=== PATIENT | female | born 2005 | race Caucasian/White ===

== ENCOUNTER 2023-02-21 16:30 | Emergency (ER) | payer BC, SELFPAY ==
[2023-02-21 16:30] VITALS: BP 138/80; PULSE 82; RESP 16; TEMP 36.7; O2SAT 98; BMI 34.9
--- NOTE | 2023-02-21 16:45 | EDS_ITS ---
HPI History of Present Illness Chief Complaint: Back Informant: patient Narrative Narrative: 17-year-old female states that she was bent over folding a weighted blanket. When she stood up she had pain in her low back. She describes it as nonradiating. No leg symptoms no bowel or bladder symptoms. States it feels like a spasm. She went to urgent care but they were closed so she came to emergency. 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 When asked further what that means is that she because of her physical job she wants to make sure she is checking her back anymore. She states that last week she fell down some icy stairs but did not have any low back pain. She states that she does not want any work restrictions and does not want time off of work. PFSH PFSH Allergy/AdvReac Type Severity Reaction Status Date / Time No Known Allergies Allergy Verified 02/21/23 16:32 Social History Smoking Status: Never smoker ROS ROS ED Constitutional Constitutional ED: Denies chills or weight loss Eyes Eyes: Denies change in vision or diplopia ENT ENT ED: Denies ear pain, rhinorrhea or sore throat Cardiovascular Cardiovascular: Denies chest pain, orthopnea, palpitations or racing heartbeat Respiratory/Chest Respiratory/Chest: Denies cough, dyspnea or orthopnea Gastrointestinal Gastrointestinal: Denies abdominal pain, diarrhea, nausea or vomiting Genitourinary Genitourinary ED: Denies dysuria, hematuria or urinary frequency Musculoskeletal Musculoskeletal: Reports back pain and other Details: Chronic left knee pain (and PT for) ; Denies arthralgias or myalgias Integumentary Denies abscess or rash Neurologic Neurologic: Denies headache(s) or weakness Psychiatric Psychiatric: Denies anxiety, depression, suicidal ideation or suicidal thoughts Endocrine Endocrinology: Denies polydipsia, polyphagia or polyuria Allergic/Immunologic Allergic/Immunologic ED: Denies mouth swelling, tongue swelling or urticaria EXAM Physical Exam Const Vital Signs: 02/21/23 16:30 Temperature 98.1 F Temperature Source Temporal Pulse Rate 82 Respiratory Rate 16 Blood Pressure 138/80 H Blood Pressure Mean 99 Pulse Ox 98 Oxygen Delivery Method Room Air Positive well nourished, well developed and obese General Appearance ED: well developed Nutritional Appearance: obese HEENT Reports normocephalic, head/scalp atraumatic and moist mucous membranes Eyes PERRL and EOMs intact bilaterally Neck no lymphadenopathy, supple and no JVD Resp normal respiratory effort and clear to auscultation bilaterally Cardio regular rate, regular rhythm and no murmurs GI normal to inspection, nondistended, normoactive bowel sounds and non-tender Palpation: soft Back/Spine no CVA tenderness and normal to inspection Back/Spine Narrative: Patient reports tenderness to palpation over the lower lumbar paraspinal musculature. I do not appreciate any step-offs. No tissue texture changes to suggest underlying infection. She has full range of motion albeit painful. Normal patellar and Achilles deep tendon reflexes. Normal sensation. Extremity normal to inspection General Extremety ED: Negative for edema General Extremity: Negative for edema Neuro oriented x3 and CN's II-XII intact bilaterally Sensorium / Orientation: alert Motor Exam: strength 5/5 throughout Deep Tendon Reflexes: Rt Patellar (L4): 2+, Lt Patellar (L4): 2+, Rt Ankle (S1): 2+ and Lt Ankle (S1): 2+ Deep Tendon Reflexes Back: Rt Patellar (L4): 2+, Lt Patellar (L4): 2+, Rt Ankle (S1): 2+ and Lt Ankle (S1): 2+ Psych mental status grossly normal Mood & Affect: Negative for depressed or tearful Skin no rashes or lesions noted and no wounds MDM MDM MDM Narrative Medical decision making narrative: I think this is most likely muscle spasm/myofascial strain. I do not think x- rays are indicated. The fall last week that resulted in no low back pain I think is unrelated to today and is unlikely to find a fracture. It does not sound based on her history that there is a radicular component. I would recommend conservative treatment with anti-inflammatories heat and stretching. She does not wear show work note or work restrictions. She was advised that doing heavy lifting may aggravate it further or delay healing. Discharge Plan Triage Chief Complaint: Back ED Provider: Kaleb Garcia Dx/Rx/DC Orders Clinical Impression: Low back pain, Acute lumbosacral myofascial strain Instructions: ED Back Spasm, No Trauma Primary Care Provider: Kathleen Mora Referrals: Kathleen Mora MD [Primary Care Provider] - 1 Week if not improving Disposition Disposition: Home, Self Care
--- OUTSIDE RECORDS SUMMARY | 2023-02-21 16:53 | XMS RPT_ITS | CCD ---
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 Name Role Phone Nyal Washington DO Primary Care Provider Unavailable Primary Care Provider UnavailARABELLA Hernández Attending Unavailable NYLA WASHINGTON Attending Unavailable REFERRED, SELF Referring Unavailable NYLA WASHINGTON Primary Care Unavailable EDGARDO NUÑEZ Attending Unavailable REFERRED, SELF Referring Unavailable NYLA WASHINGTON Primary Care Unavailable WENDY REYES Referring Unavailable Allergies Allergy Classification Reported Allergen(s) Allergy Type Date of Onset Reaction(s) Facility (3 sources) Lactose; Translations: [LACTOSE] Drug Allergy 09-03-2021 Diarrhea [facility] Work Phone: Medications Current Medications Medication Drug Class(es) Dates Sig (Normalized) Sig (Original) ibuprofen 600 mg oral tablet (1 source) Nonsteroidal Anti-inflammatory Drug Start: 09-05-2021 take 1 tablet by mouth every six hours as needed for pain ibuprofen (MOTRIN) 600 MG tablet Take 1 Tablet (600 mg) by mouth every 6 hours as needed for Pain Take with meals. 35 Tablet 1 09/05/2021 Active ketorolac tromethamine 10 mg oral tablet (1 source) Nonsteroidal Anti-inflammatory Drug, Cyclooxygenase Inhibitor Start: 05-21-2021 End: 05-24-2021 take 1 tablet by mouth every six hours as needed for pain ketorolac (TORADOL) 10 MG tablet Take 1 Tablet (10 mg) by mouth every 6 hours as needed for Pain for up to 3 days 12 Tablet 0 05/21/2021 05/24/2021 Active Levonorgestrel (3 sources) Progestin, Progestin-containin g Intrauterine Device Levonorgestrel (MIRENA, 52 MG, IU) 52 mg by Intrauterine route continuous 0 Active Completed/Discontinued Medications Medication Drug Class(es) Dates Sig (Normalized) Sig (Original) acetaminophen 500 mg oral tablet (2 sources) Start: 09-05-2021 End: 09-05-2021 acetaminophen (TYLENOL) tablet 1,000 mg Problems Active Problems Problem Classification Problem Date Documented Date Episodic/Chronic Attention-deficit, conduct, and disruptive behavior disorders (4 sources) Attention deficit hyperactivity disorder, combined type; Translations: [Attention-deficit hyperactivity disorder, combined type] Onset: 05-09-2010 05-31-2020 Chronic Attention-deficit, conduct, and disruptive behavior disorders (1 source) Attention deficit hyperactivity disorder; Translations: [Attention-deficit hyperactivity disorder, unspecified type] Onset: 05-09-2010 05-09-2010 Chronic Contraceptive and procreative management (4 sources) Intrauterine contraceptive device in situ; Translations: [Presence of (intrauterine) contraceptive device] Onset: 12-13-2020 12-13-2020 Episodic Joint disorders and dislocations; trauma-related (5 sources) Laxity of ligament; Translations: [Other internal derangements of left knee] Onset: 05-14-2021 Resolved: 09-03-2021 Chronic Miscellaneous mental health disorders (4 sources) Mental disorder; Translations: [Mental disorder, not otherwise specified] Onset: 10-20-2019 10-20-2019 Chronic Open wounds of extremities (1 source) Laceration without foreign body of left lesser toe(s) without damage to nail, initial encounter; Translations: [Laceration of lesser toe of left foot without foreign body present or damage to nail, initial encounter] Onset: 10-12-2022 Episodic Other bone disease and musculoskeletal deformities (1 source) Calcaneal apophysitis; Translations: [Juvenile osteochondrosis of tarsus, unspecified ankle] Onset: 07-26-2013 07-26-2013 Chronic Other lower respiratory disease (1 source) Hemoptysis; Translations: [Hemoptysis] Episodic Other non-traumatic joint disorders (4 sources) Arthropathy of knee joint; Translations: [Ankylosis, unspecified knee] Onset: 09-01-2021 Chronic Other non-traumatic joint disorders (1 source) Arthrofibrosis of left knee; Translations: [Ankylosis, left knee] Chronic Other nutritional; endocrine; and metabolic disorders (4 sources) Overweight in childhood; Translations: [Body mass index (BMI) pediatric, 85th percentile to less than 95th percentile for age] Resolved: 09-03-2021 12-15-2018 Episodic Other nutritional; endocrine; and metabolic disorders (3 sources) Childhood obesity; Translations: [Body mass index (BMI) pediatric, greater than or equal to 95th percentile for age] Onset: 09-03-2021 09-03-2021 Episodic Other upper respiratory infections (2 sources) Sore throat symptom; Translations: [Acute pharyngitis, unspecified] Episodic Sprains and strains (10 sources) Sprain of anterior cruciate ligament of knee; Translations: [Sprain of anterior cruciate ligament of left knee, initial encounter] Onset: 05-14-2021 Resolved: 09-03-2021 Episodic Past or Other Problems Problem Classification Problem Date Documented Da te Episodic/Chronic Other lower respiratory disease (1 source) Hemoptysis; Translations: [Hemoptysis] Onset: 04-07-2022 Episodic Viral infection (1 source) Verruca vulgaris; Translations: [Viral wart, unspecified] Onset: 11-18-2010 11-18-2010 Episodic Results Test Name Value Interpretation Reference Range Facil ity Vital Signs Date Time Vital Sign Value Performing Clinician Facility 04-07-2022 16:32-0500 Body temperature 98.91 [degF] Wendy Athy PA-C Work Phone: [facility] 04-07-2022 16:32-0500 Body weight 91.17 kg Wendy Athy PA-C Work Phone: [facility] 04-07-2022 16:32-0500 Diastolic blood pressure 70 mm[Hg] Wendy Athy PA-C Work Phone: [facility] 04-07-2022 16:32-0500 Heart rate 102 /min Wendy Athy PA-C Work Phone: [facility] 04-07-2022 16:32-0500 Respiratory rate 18 /min Wendy Athy PA-C Work Phone: [facility] 04-07-2022 16:32-0500 SaO2% (BldA) [Mass fraction] 98 % Wendy Athy PA-C Work Phone: [facility] 04-07-2022 16:32-0500 Systolic blood pressure 112 mm[Hg] Wendy Reyes PA-C Work Phone: [facility] 09-05-2021 17:30-0400 Body temperature 97.2 [degF] Yuri Bender MD Work Phone: [facility] 09-05-2021 17:30-0400 Diastolic blood pressure 49 mm[Hg] Yuri Bender MD Work Phone: [facility] 09-05-2021 17:30-0400 Heart rate 62 /min Yuri Bender MD Work Phone: [facility] 09-05-2021 17:30-0400 Respiratory rate 16 /min Yuri Bender MD Work Phone: [facility] 09-05-2021 17:30-0400 SaO2% (BldA) [Mass fraction] 96 % Yuri Bender MD Work Phone: [facility] 09-05-2021 17:30-0400 Systolic blood pressure 90 mm[Hg] Yuri Bender MD Work Phone: [facility] 09-05-2021 14:28-0400 Body height 155.5 cm Yuri Bender MD Work Phone: [facility] 09-05-2021 14:28-0400 Body mass index (BMI) [Percentile] Per age and sex 97.08 % Yuri Bender MD Work Phone: [facility] 09-05-2021 14:28-0400 Body mass index (BMI) [Ratio] 33.33 kg/m2 Yuri Bender MD Work Phone: [facility] 09-05-2021 14:28-0400 Body weight 80.6 kg Yuri Bender MD Work Phone: [facility] 05-21-2021 16:00-0400 Body temperature 98.4 [degF] Yuri Bender MD Work Phone: [facility] 05-21-2021 16:00-0400 Diastolic blood pressure 80 mm[Hg] Yuri Bender MD Work Phone: [facility] 05-21-2021 16:00-0400 Heart rate 94 /min Yuri Bender MD Work Phone: [facility] 05-21-2021 16:00-0400 Respiratory rate 20 /min Yuri Bender MD Work Phone: [facility] 05-21-2021 16:00-0400 SaO2% (BldA) [Mass fraction] 98 % Yuri Bender MD Work Phone: [facility] 05-21-2021 16:00-0400 Systolic blood pressure 136 mm[Hg] Yuri Bender MD Work Phone: [facility] 05-21-2021 11:56-0400 Body height 156.5 cm Yuri Bender MD Work Phone: [facility] 05-21-2021 11:56-0400 Body mass index (BMI) [Percentile] Per age and sex 94.59 % Yuri Bender MD Work Phone: [facility] 05-21-2021 11:56-0400 Body mass index (BMI) [Ratio] 29.81 kg/m2 Yuri Bender MD Work Phone: [facility] 05-21-2021 11:56-0400 Body weight 73 kg Yuri Bender MD Work Phone: [facility] Encounters Encounter Date Encounter Type Care Provider Facility Start: 01-26-2023 End: 01-26-2023 ambulatory WENDY REYES Facility:[facility] Start: 01-18-2023 End: 01-18-2023 ambulatory EDGARDO NUÑEZ [facility] Start: 01-06-2023 End: 01-06-2023 ambulatory NYLA WASHINGTON [facility] Start: 10-12-2022 End: 10-13-2022 Emergency department patient visit ARABELLA RENO Facility:[facility] Start: 04-07-2022 End: 04-07-2022 ambulatory WENDY Rodney WYATTOlena Facility:[facility] Start: 04-07-2022 End: 04-07-2022 Patient encounter procedure Wendy Reyes PA-C Work Phone: [facility] Procedures Date Procedure Procedure Detail Performing Clinician Start: 04-07-2022 STREP A MOLECULAR (POC) Wendy Reyes PA-C Work Phone: Start: 09-05-2021 Urine test visual color cmprsn meths Blanca Nunn [employer] Work Phone: Start: 09-03-2021 SARS COV-2 RT-PCR Fina Bender MD Work Phone: Start: 05-21-2021 Urine test visual color cmprsn methgrecia Guerrero [employer] Work Phone: Plan of Treatment Date Care Activity Detail Author Start: 10-02-2025 Tetanus Diphtheria and Pertussis Vaccines (7 - Td or Tdap) Tetanus Diphtheria and Pertussis Vaccines (7 - Td or Tdap) [facility] Start: 02-08-2022 DEPRESSION ASSESSMENT DEPRESSION ASSESSMENT [facility] Start: 10-09-2021 FLU (#1) FLU (#1) [facility] Start: 09-10-2021 End: 09-10-2021 Patient encounter procedure 09/10/2021 Office Visit Pediatric Orthopedic Surgery Yuri Bender MD [address] [place] [address] Orthopedics - [place] Start: 09-06-2021 Well Visit Well Visit [facility] Start: 09-05-2021 End: 09-05-2021 Admission to same day surgery center 09/05/2021 Surgery Yuri Bender MD [address] [place] [address] Manipulation left knee under anesthesia [facility] OR Immunizations Immunization Date Immunization Notes Care Provider Fa cility 06-13-2021 meningococcal B vacc ine, recombinant, OMV, adjuvanted Yuri Bender MD Work Phone: [facility] 06-13-2021 PFIZER COVID-19, mRN A, VAC-LUCAS, 30mcg/0.3mL dose Yuri Bender MD Work Phone: [facility] 12-11-2020 influenza, injectabl e, quadrivalent, preservative free Yuri Bender MD Work Phone: [facility] 12-11-2020 meningococcal B vacc ine, recombinant, OMV, adjuvanted Yuri Bender MD Work Phone: [facility] 09-06-2020 hepatitis A vaccine, pediatric/adolescent dosage, 2 dose schedule Yuri Bender MD Work Phone: [facility] 06-13-2020 PFIZER (purple cap) COVID-19, mRNA, LNP-S, 30mcg/0.3mL dose Yuri Bender MD Work Phone: [facility] 05-23-2020 PFIZER (purple cap) COVID-19, mRNA, LNP-S, 30mcg/0.3mL dose Yuri Bender MD Work Phone: [facility] 11-25-2019 influenza, injectabl e, quadrivalent, preservative free Yuri Bender MD Work Phone: [facility] 09-26-2019 hepatitis A vaccine, pediatric/adolescent dosage, 2 dose schedule Yuri Bender MD Work Phone: [facility] 09-26-2019 meningococcal polysaccharide (groups A, C, Y and W-135) diphtheria toxoid conjugate vaccine (MCV4P) Yuri Bender MD Work Phone: [facility] 12-15-2018 influenza, injectabl e, quadrivalent, preservative free Yuri Bender MD Work Phone: [facility] 11-02-2017 influenza, injectabl e, quadrivalent, preservative free Yuri Bender MD Work Phone: [facility] 10-22-2016 influenza, injectabl e, quadrivalent, preservative free Yuri Bender MD Work Phone: [facility] 04-13-2016 Human Papillomavirus 9-valent vaccine Yuri Bender MD Work Phone: [facility] 12-06-2015 Human Papillomavirus 9-valent vaccine Yuri Bender MD Work Phone: [facility] 12-06-2015 influenza, injectabl e, quadrivalent, preservative free Yrui Bender MD Work Phone: [facility] 10-03-2015 Human Papillomavirus 9-valent vaccine Yuri Bender MD Work Phone: [facility] 10-03-2015 meningococcal polysaccharide (groups A, C, Y and W-135) diphtheria toxoid conjugate vaccine (MCV4P) Yuri Bender MD Work Phone: [facility] 10-03-2015 tetanus toxoid, redu jesse diphtheria toxoid, and acellular pertussis vaccine, adsorbed Yuri Bender MD Work Phone: [facility] 11-28-2014 Influenza Vaccine 0. 5 mL >= 3 yr Quadrivalent Yuri Bender MD Work Phone: [facility] 11-28-2014 influenza, injectabl e, quadrivalent, contains preservative Wendy Reyes PA-C Work Phone: [facility] Work Phone: 12-06-2013 Influenza Vaccine 0. 5 mL >= 3 yr Adánivalent Yuri Bender MD Work Phone: [facility] 12-06-2013 influenza, seasonal, injectable Wendy Reyes PA-C Work Phone: [facility] 11-10-2012 Influenza Vaccine 0. 5 mL >= 3 yr Quadrivalent Yuri Bender MD Work Phone: [facility] 11-10-2012 influenza virus vacc ine, unspecified formulation Yuri Bender MD Work Phone: [facility] 12-19-2011 Influenza Vaccine 0. 5 mL >= 3 yr Adánivalent Yuri Bender MD Work Phone: [facility] 12-19-2011 influenza virus vacc ine, unspecified formulation Yuri Bender MD Work Phone: [facility] 11-15-2010 Influenza Vaccine 0. 5 mL >= 3 yr Quadrivalent Yuri Bender MD Work Phone: [facility] 11-15-2010 influenza virus vacc ine, unspecified formulation Yuri Bender MD Work Phone: [facility] 11-29-2009 influenza virus vacc ine, unspecified formulation Yuri Bender MD Work Phone: [facility] 11-29-2009 influenza, injectabl e, quadrivalent, preservative free Yuri Bender MD Work Phone: [facility] 11-10-2008 influenza virus vacc ine, unspecified formulation Wendy Reyes PA-C Work Phone: [facility] 11-10-2008 influenza, injectabl e, quadrivalent, preservative free Yuri Bender MD Work Phone: [facility] 07-27-2008 diphtheria, tetanus toxoids and acellular pertussis vaccine Yuri Bender MD Work Phone: [facility] Work Phone: 07-27-2008 measles, mumps and rubella virus vaccine Yuri Bender MD Work Phone: [facility] 07-27-2008 poliovirus vaccine, inactivated Yuri Bender MD Work Phone: [facility] 07-27-2008 varicella virus vaccine Jeffery Bender MD Work Phone: [facility] 12-23-2007 influenza virus vacc ine, unspecified formulation Wendy Reyes PA-C Work Phone: [facility] Work Phone: 12-23-2007 influenza, injectabl e, quadrivalent, preservative free Yuri Bender MD Work Phone: [facility] 04-09-2005 diphtheria, tetanus toxoids and acellular pertussis vaccine Yuri Bender MD Work Phone: [facility] 04-09-2005 haemophilus influenz ae type b vaccine, HbOC conjugate Wendy Reyes PA-C Work Phone: [facility] Work Phone: 04-09-2005 haemophilus influenz ae type b vaccine, PRP-T conjugate Yuri Bender MD Work Phone: [facility] 07-21-2004 measles, mumps and rubella virus vaccine Yuri Bender MD Work Phone: [facility] 07-21-2004 pneumococcal conjuga te vaccine, 13 valent Yuri Bender MD Work Phone: [facility] 07-21-2004 pneumococcal conjuga te vaccine, 7 valent Wendy Reyes PA-C Work Phone: [facility] Work Phone: 07-21-2004 varicella virus vaccine Jeffery Bender MD Work Phone: [facility] 02-11-2004 diphtheria, tetanus toxoids and acellular pertussis vaccine Yuri Bender MD Work Phone: [facility] 02-11-2004 DTaP-hepatitis B and poliovirus vaccine Wendy Reyes PA-C Work Phone: [facility] Work Phone: 02-11-2004 haemophilus influenz ae type b vaccine, HbOC conjugate Wendy Reyes PA-C Work Phone: [facility] Work Phone: 02-11-2004 haemophilus influenz ae type b vaccine, PRP-T conjugate Yuri Bender MD Work Phone: [facility] 02-11-2004 hepatitis B vaccine, pediatric or pediatric/adolescent dosage Yuri Bender MD Work Phone: [facility] 02-11-2004 influenza virus vacc ine, unspecified formulation Wendy Reyes PA-C Work Phone: [facility] Work Phone: 02-11-2004 influenza, injectable,quadrivalent, preservative free, pediatric Yuri Bender MD Work Phone: [facility] 02-11-2004 pneumococcal conjuga te vaccine, 13 valent Yuri Bender MD Work Phone: [facility] 02-11-2004 pneumococcal conjuga te vaccine, 7 valent Wendy Reyes PA-C Work Phone: [facility] Work Phone: 02-11-2004 poliovirus vaccine, inactivated Yuri Bender MD Work Phone: [facility] 2003 diphtheria, tetanus toxoids and acellular pertussis vaccine Yuri Bender MD Work Phone: [facility] 2003 DTaP-hepatitis B and poliovirus vaccine Wendy Reyes PA-C Work Phone: [facility] Work Phone: 2003 haemophilus influenz ae type b vaccine, HbOC conjugate Wendy Reyes PA-C Work Phone: [facility] Work Phone: 2003 haemophilus influenz ae type b vaccine, PRP-T conjugate Yuri Bender MD Work Phone: [facility] 2003 hepatitis B vaccine, pediatric or pediatric/adolescent dosage Yuri Bender MD Work Phone: [facility] 2003 pneumococcal conjuga te vaccine, 13 valent Yuri Bender MD Work Phone: [facility] 2003 pneumococcal conjuga te vaccine, 7 valent Wendy Reyes PA-C Work Phone: [facility] Work Phone: 2003 poliovirus vaccine, inactivated Yuri Bender MD Work Phone: [facility] 2003 diphtheria, tetanus toxoids and acellular pertussis vaccine Yuri Bender MD Work Phone: [facility] 2003 DTaP-hepatitis B and poliovirus vaccine Wendy Reyes PA-C Work Phone: [facility] Work Phone: 2003 haemophilus influenz ae type b vaccine, HbOC conjugate Wendy Reyes PA-C Work Phone: [facility] Work Phone: 2003 haemophilus influenz ae type b vaccine, PRP-T conjugate Yuri Bender MD Work Phone: [facility] 2003 hepatitis B vaccine, pediatric or pediatric/adolescent dosage Yuri Bender MD Work Phone: [facility] 2003 pneumococcal conjuga te vaccine, 13 valent Yuri Bender MD Work Phone: [facility] 2003 pneumococcal conjuga te vaccine, 7 valent Wendy Reyes PA-C Work Phone: [facility] Work Phone: 2003 poliovirus vaccine, inactivated Yuri Bender MD Work Phone: [facility] 2003 hepatitis B vaccine, pediatric or pediatric/adolescent dosage Yuri Bender MD Work Phone: [facility] Payers Date Payer Category Payer Unknown [id number] 2020 Unknown [id number] 2003 Unknown [id number] 2003 Unknown [id number] Unknown [id number] Social History Date Type Detail Facility Start: 06-18-2010 End: 07-23-2017 Tobacco smoking status NHIS Never smoked tobacco [facility] Start: 06-18-2010 End: 07-23-2017 Tobacco use and exposure Smokeless tobacco non-user [facility] Start: 05-21-2021 End: 09-05-2021 Alcohol intake Lifetime non-drinker (finding) [facility] Start: 05-21-2021 End: 09-05-2021 Alcohol intake [facility] Start: 10-20-2019 History SDOH Alcohol Frequency 1 [facility] Start: 2003 Sex Assigned At Not on file A [facility] Start: 05-11-2021 End: 09-03-2021 Exposure to SARS-CoV-2 (event) Not sure [facility] Start: 04-07-2022 Alcohol intake Not Asked [facility] NEGATED: Highlighted rowStart: NINF History of tobacco use Passive smoker [facility] Medical Equipment Procedure Code Equipment Code Equipment Origin al Text Equipment Identifier Dates Fast Fix Flex Cvd [id number] Start: 05-21-2021 20mm Tightrope Attach Button [id number] Start: 05-21-2021 Clinical Notes 05-21-2021 to 01-26-2023 Wendy Reyes PA-C - 04/07/2022 5:41 PM ESTPlan of Niharika Carpenter RN - 09/05/2021 5:37 PM EDTPlan of Niharika Carpenter RN - 09/05/2021 5:37 PM EDTDischarge Instructions Note Date & Type Note Facility 01-26-2023 Note HNO ID: [id number] Author: Ella Rodriguez APRN.HAND FORMER Service: ? Author Type: Nurse Practitioner Type: Progress Notes Filed: 01/26/2023 2:20 PM Note Text: Subjective Ear Pain Associated symptoms include congestion, coughing, headaches and a sore throat. Pertinent negatives include no chest pain, chills, fever, myalgias, nausea or vomiting. Roderick Angel is a 17 year old female who presents with left ear pain today and headache, cough and sore throat for the past 3 days. She has not had a fever. She has been around coworkers who have been sick. She has been taking mucinex and tylenol for symptoms. She rates ear pain 8/. Review of Systems Constitutional: Negative for chills and fever. HENT: Positive for congestion, ear pain, hearing loss, sore throat and tinnitus. Respiratory: Positive for cough. Negative for shortness of breath. Cardiovascular: Negative for chest pain. Gastrointestinal: Negative for diarrhea, nausea and vomiting. Musculoskeletal: Negative for myalgias. Neurological: Positive for headaches. BP 119/75 Pulse 77 Temp 36.6 ?C (97.9 ?F) Resp 18 Wt 86.2 kg (190 lb) LMP 01/26/2023 SpO2 98% BMI 35.90 kg/m? PAST MEDICAL HISTORY Diagnosis Date NEGATIVE MEDICAL HISTORY normal color vision Post traumatic stress disorder Wrist fracture, right 07/2012 cast--fell from horse PAST SURGICAL HISTORY Procedure Laterality Date NONE ALLERGIES Patient has no known allergies. MEDICATIONS amoxicillin (AMOXIL) 875 mg tablet Take 1 tablet by mouth two times a day for 7 days. methylphenidate (RITALIN) 20 mg tablet 1 1/2 tablet in afternoon (Patient not taking: Reported on 04/07/2022) FEXOFENADINE HCL (GEORGE ALLERGY ORAL) Take by mouth. (Patient not taking: Reported on 04/07/2022) methylphenidate ER 54 mg CR tablet Take 1 tablet by mouth once daily. (Patient not taking: Reported on 04/07/2022) methylphenidate ER 54 mg CR tablet Take 1 tablet by mouth once daily. (Patient not taking: Reported on 01/26/2023) methylphenidate ER 54 mg CR tablet Take 1 tablet by mouth once daily. (Patient not taking: Reported on 01/26/2023) Pedi MVI No.17 with Fluoride (MULTI-VITAMIN WITH FLUORIDE) 1 mg chew Take one(1) tablet daily. (Patient not taking: Reported on 04/07/2022) FAMILY HISTORY Problem Relation Age of Onset other (multiple sclerosis [Other]) Mother Alcohol/Drug Mother Social History Tobacco Use Smoking status: Never Smokeless tobacco: Never Objective Physical Exam Vitals and nursing note reviewed. HENT: Right Ear: Ear canal and external ear normal. A middle ear effusion is present. Tympanic membrane is injected and erythematous. Left Ear: Ear canal and external ear normal. A middle ear effusion is present. Tympanic membrane is injected. Nose: Nose normal. Mouth/Throat: Pharynx: Uvula midline. No oropharyngeal exudate or posterior oropharyngeal erythema. Cardiovascular: Rate and Rhythm: Normal rate and regular rhythm. Heart sounds: Normal heart sounds. Pulmonary: Effort: Pulmonary effort is normal. No respiratory distress. Breath sounds: Normal breath sounds. No wheezing or rales. Musculoskeletal: Cervical back: Neck supple. Lymphadenopathy: Cervical: No cervical adenopathy. Skin: General: Skin is warm and dry. Findings: No erythema or rash. Neurological: Mental Status: She is alert. ASSESSMENT/PLAN: 1. Viral URI with cough - ICD9: 465.9, ICD10: J06.9 (primary diagnosis) - Discussed viral etiology and rationale for treatment. - Symptomatic treatment with prn analgesia - Supportive care with fluids and rest - COVID NAAT, UPPER RESPIRATORY, ROUTINE 2. Other acute nonsuppurative otitis media of both ears, recurrence not specified - ICD9: 381.00, ICD10: H65.193 - Will begin treatment with as per antibiotic as written, see orders - Supportive care with plenty of fluids, rest, and analgesia prn. - AMOXICILLIN 875 MG TABLET - Follow-up with your PCP in 3-5 days if symptoms have not improved or sooner if symptoms worsen - Discussed red flags and need for immediate medical evaluation if any occur. - Discussed supportive care treatment with fluids, rest and analgesia. - Discussed expected course of illness Ella Rodriguez APRN.[facility] 04-07-2022 Note HNO ID: [id number] Author: Wendy Reyes PA-C Service: ? Author Type: Physician Blow Down Operator Type: Progress Notes Filed: 04/07/2022 5:47 PM Note Text: This note was created using NoteWriter. Subjective Roderick Angel is a 16 year old female. HPI Patient presents with the chief complaint of cough sore throat congestion over the past couple of days. Today she had coughed up some blood-tinged mucus. She thought maybe it was coming from her throat. No vomiting or diarrhea. No fever. She states she felt a little short of breath last night as well. Home COVID test was negative. Review of Systems Constitutional: Negative. HENT: Positive for congestion, ear pain, rhinorrhea and sore throat. Respiratory: Positive for cough and shortness of breath. Negative for chest tightness and wheezing. Cardiovascular: Negative. Gastrointestinal: Negative. Genitourinary: Negative. Musculoskeletal: Negative. All other systems reviewed and are negative. PAST MEDICAL HISTORY Diagnosis Date NEGATIVE MEDICAL HISTORY normal color vision Post traumatic stress disorder Wrist fracture, right 07/2012 cast--fell from horse Current Outpatient Medications Medication Sig Dispense Refill methylphenidate (RITALIN) 20 mg tablet 1 1/2 tablet in afternoon (Patient not taking: Reported on 04/07/2022) 45 tablet 0 FEXOFENADINE HCL (GEORGE ALLERGY ORAL) Take by mouth. (Patient not taking: Reported on 04/07/2022) methylphenidate ER 54 mg CR tablet Take 1 tablet by mouth once daily. (Patient not taking: Reported on 04/07/2022) 30 tablet 0 methylphenidate ER 54 mg CR tablet Take 1 tablet by mouth once daily. 30 tablet 0 methylphenidate ER 54 mg CR tablet Take 1 tablet by mouth once daily. 30 tablet 0 Pedi MVI No.17 with Fluoride (MULTI-VITAMIN WITH FLUORIDE) 1 mg chew Take one(1) tablet daily. (Patient not taking: Reported on 04/07/2022) 30 tablet 11 No current facility-administered medications for this visit. PAST SURGICAL HISTORY Procedure Laterality Date NONE FAMILY HISTORY Problem Relation Age of Onset other (multiple sclerosis [Other]) Mother Alcohol/Drug Mother Social History Tobacco Use Smoking status: Never Smokeless tobacco: Never Objective BP 112/70 Pulse 102 Temp 37.2 ?C (98.9 ?F) Resp 18 Wt 91.2 kg (201 lb) SpO2 98% Physical Exam Vitals reviewed. Constitutional: Appearance: Normal appearance. HENT: Head: Normocephalic and atraumatic. Right Ear: Tympanic membrane, ear canal and external ear normal. Left Ear: Tympanic membrane, ear canal and external ear normal. Nose: Congestion present. Mouth/Throat: Lips: [place]. Mouth: Mucous membranes are moist. Pharynx: Uvula midline. Pharyngeal swelling and posterior oropharyngeal erythema present. No oropharyngeal exudate or uvula swelling. Tonsils: No tonsillar exudate or tonsillar abscesses. 1+ on the right. 1+ on the left. Cardiovascular: Rate and Rhythm: Normal rate and regular rhythm. Heart sounds: Normal heart sounds. Pulmonary: Effort: Pulmonary effort is normal. Breath sounds: Normal breath sounds. Musculoskeletal: Cervical back: Neck supple. Lymphadenopathy: Cervical: No cervical adenopathy. Skin: General: Skin is warm and dry. Findings: No rash. Neurological: Mental Status: She is alert. Assessment and Plan ASSESSMENT/PLAN: 1. Sore throat - ICD9: 462, ICD10: J02.9 (primary diagnosis) - Alere Strep Test neg, no culture pending - STREP A MOLECULAR (POC) 2. Hemoptysis - ICD9: 786.30, ICD10: R04.2 Likely from irritation from the cough. Chest x-ray negative. Discussed if persist follow-up with PCP. - XR CHEST 2V FRONTAL/LAT 3. Viral URI with cough - ICD9: 465.9, ICD10: J06.9 - Discussed viral etiology and rationale for treatment. - Symptomatic treatment with prn analgesia - Supportive care with fluids and rest -Declined PCR COVID testing. Wendy Reyes PA-C [facility] 04-07-2022 Note HNO ID: [id number] Author: RT Faustino(R) Service: Radiology Author Type: Technologist Type: Progress Notes Filed: 04/07/2022 4:59 PM Note Text: Radiology Service Progress Note PATIENT NAME: Roderick Angel DATE OF SERVICE: April 07, 2022 TIME: 4:51 PM PATIENT IDENTITY VERIFICATION COMPLETED USING TWO (2) IDENTIFIERS: Name and Date of confirmed by patient verbally. FALL SCREENING: Has the patient had 2 falls in the last year or 1 fall with injury or currently using an Ambulatory Assistive Device (Walker, Cane, Wheelchair, Crutches, etc.)? No PATIENT GENDER DATA: Female. status: : No status: NO. PATIENT RELEVANT IMPLANT DATA REVIEWED: Yes RADIOLOGY DEPARTMENT: General X-ray: Exam(s) Completed: Chest X-Ray PERIPHERAL IV DATA: Not applicable SIGNED BY: RT Faustino(R) April 07, 2022 4:51 PM [facility] 04-07-2022 History of Present illness Narrative This note was created using [employer]. Subjective Roderick Angel is a 16 year old female. HPI Patient presents with the chief complaint of cough sore throat congestion over the past couple of days. Today she had coughed up some blood-tinged mucus. She thought maybe it was coming from her throat. No vomiting or diarrhea. No fever. She states she felt a little short of breath last night as well. Home COVID test was negative. Review of Systems Constitutional: Negative. HENT: Positive for congestion, ear pain, rhinorrhea and sore throat. Respiratory: Positive for cough and shortness of breath. Negative for chest tightness and wheezing. Cardiovascular: Negative. Gastrointestinal: Negative. Genitourinary: Negative. Musculoskeletal: Negative. All other systems reviewed and are negative. PAST MEDICAL HISTORY Diagnosis Date NEGATIVE MEDICAL HISTORY normal color vision Post traumatic stress disorder Wrist fracture, right 07/2012 cast--fell from horse Current Outpatient Medications Medication Sig Dispense Refill methylphenidate (RITALIN) 20 mg tablet 1 1/2 tablet in afternoon (Patient not taking: Reported on 04/07/2022) 45 tablet 0 FEXOFENADINE HCL (GEORGE ALLERGY ORAL) Take by mouth. (Patient not taking: Reported on 04/07/2022) methylphenidate ER 54 mg CR tablet Take 1 tablet by mouth once daily. (Patient not taking: Reported on 04/07/2022) 30 tablet 0 methylphenidate ER 54 mg CR tablet Take 1 tablet by mouth once daily. 30 tablet 0 methylphenidate ER 54 mg CR tablet Take 1 tablet by mouth once daily. 30 tablet 0 Pedi MVI No.17 with Fluoride (MULTI-VITAMIN WITH FLUORIDE) 1 mg chew Take one(1) tablet daily. (Patient not taking: Reported on 04/07/2022) 30 tablet 11 No current facility-administered medications for this visit. PAST SURGICAL HISTORY Procedure Laterality Date NONE FAMILY HISTORY Problem Relation Age of Onset other (multiple sclerosis [Other]) Mother Alcohol/Drug Mother Social History Tobacco Use Smoking status: Never Smokeless tobacco: Never Objective BP 112/70 Pulse 102 Temp 37.2 C (98.9 F) Resp 18 Wt 91.2 kg (201 lb) SpO2 98% Physical Exam Vitals reviewed. Constitutional: Appearance: Normal appearance. HENT: Head: Normocephalic and atraumatic. Right Ear: Tympanic membrane, ear canal and external ear normal. Left Ear: Tympanic membrane, ear canal and external ear normal. Nose: Congestion present. Mouth/Throat: Lips: [place]. Mouth: Mucous membranes are moist. Pharynx: Uvula midline. Pharyngeal swelling and posterior oropharyngeal erythema present. No oropharyngeal exudate or uvula swelling. Tonsils: No tonsillar exudate or tonsillar abscesses. 1+ on the right. 1+ on the left. Cardiovascular: Rate and Rhythm: Normal rate and regular rhythm. Heart sounds: Normal heart sounds. Pulmonary: Effort: Pulmonary effort is normal. Breath sounds: Normal breath sounds. Musculoskeletal: Cervical back: Neck supple. Lymphadenopathy: Cervical: No cervical adenopathy. Skin: General: Skin is warm and dry. Findings: No rash. Neurological: Mental Status: She is alert. Assessment and Plan ASSESSMENT/PLAN: 1. Sore throat - ICD9: 462, ICD10: J02.9 (primary diagnosis) - Alere Strep Test neg, no culture pending - STREP A MOLECULAR (POC) 2. Hemoptysis - ICD9: 786.30, ICD10: R04.2 Likely from irritation from the cough. Chest x-ray negative. Discussed if persist follow-up with PCP. - XR CHEST 2V FRONTAL/LAT 3. Viral URI with cough - ICD9: 465.9, ICD10: J06.9 - Discussed viral etiology and rationale for treatment. - Symptomatic treatment with prn analgesia - Supportive care with fluids and rest -Declined PCR COVID testing. Wendy Reyes PA-C documented in this encounter [facility] 09-05-2021 Plan of care note Education completed [facility] 07-29-2022 Miscellaneous Notes Education completed OPERATIVE REPORT NAME: Roderick Angel DATE OF : 2005 AGE: 16 y.o. GENDER: female WEIGHT: Weight - Scale: 80.6 kg ADMIT DATE: 09/05/2021 TYPE: outpatient [facility]#: [id number] ATTENDING: Yuri Bender MD DATE: 09/05/2021 Surgeon(s) and Role: * Yuri Bender MD - Primary OR STAFF: Rail Operations Controller: Cheli Gay RN Scrub Person: Fco Palacios Preoperative Diagnosis: Fibrosis left knee Postoperative Diagnosis: Fibrosis left knee Procedure: Manipulation left knee under anesthesia ANESTHESIA: General, Nerve Block/Regional INDICATIONS FOR PROCEDURE: Roderick Angel is a 16 y.o. female who had a preoperative diagnosis as stated above. The risks and benefits of the procedure were explained to family as able by me. These included, but were not limited to, bleeding, infection, anesthesia, damage to surrounding structures, need for further procedures or operations, or unforeseen complications. They desired to proceed. DESCRIPTION OF PROCEDURE: The patient was taken to the operating room. After adequate general anesthesia was induced the patient was postioned on the operating table. Care was taken to pad all bony prominences. . Time out was performed. Prior to manipulation the range of motion left knee was full extension to 110 degrees of flexion. We then proceeded to gently manipulate the knee in flexion. We are able to achieve 124 degrees of flexion without any difficulty. I then compared this to the opposite side she had precisely 124 degrees of normal passive flexion on the opposite side. I therefore elected to stop at that point. She still had full extension. Her toes are pink with rapid cap refill she still had a good dorsalis pedal pulse on the left. ESTIMATED BLOOD LOSS: None SPECIMENS: None IMPLANTS: * No implants in log * COMPLICATIONS: None. Roderick tolerated the procedure well. The patient was taken to PACU. The results of the operation were discussed with the family as able. Post-Operative Plan: She can bear weight as tolerated and return back to physical therapy as soon as possible. She should do range of motion exercises 3-4 times a day. She does not need to wear a brace. Yuri Bender MD [facility] 4:31 PM documented in this encounter [facility] 09-05-2021 Procedure note OPERATIVE REPORT NAME: Roderick Angel DATE OF : 2005 AGE: 16 y.o. GENDER: female WEIGHT: Weight - Scale: 80.6 kg ADMIT DATE: 09/05/2021 TYPE: outpatient [facility]#: [id number] ATTENDING: Yuri Bender MD DATE: 09/05/2021 Surgeon(s) and Role: * Yuri Bender MD - Primary OR STAFF: Rail Operations Controller: Cheli Gay RN Scrub Person: Fco Palacios Preoperative Diagnosis: Fibrosis left knee Postoperative Diagnosis: Fibrosis left knee Procedure: Manipulation left knee under anesthesia ANESTHESIA: General, Nerve Block/Regional INDICATIONS FOR PROCEDURE: Roderick Angel is a 16 y.o. female who had a preoperative diagnosis as stated above. The risks and benefits of the procedure were explained to family as able by me. These included, but were not limited to, bleeding, infection, anesthesia, damage to surrounding structures, need for further procedures or operations, or unforeseen complications. They desired to proceed. DESCRIPTION OF PROCEDURE: The patient was taken to the operating room. After adequate general anesthesia was induced the patient was postioned on the operating table. Care was taken to pad all bony prominences. . Time out was performed. Prior to manipulation the range of motion left knee was full extension to 110 degrees of flexion. We then proceeded to gently manipulate the knee in flexion. We are able to achieve 124 degrees of flexion without any difficulty. I then compared this to the opposite side she had precisely 124 degrees of normal passive flexion on the opposite side. I therefore elected to stop at that point. She still had full extension. Her toes are pink with rapid cap refill she still had a good dorsalis pedal pulse on the left. ESTIMATED BLOOD LOSS: None SPECIMENS: None IMPLANTS: * No implants in log * COMPLICATIONS: None. Roderick tolerated the procedure well. The patient was taken to PACU. The results of the operation were discussed with the family as able. Post-Operative Plan: She can bear weight as tolerated and return back to physical therapy as soon as possible. She should do range of motion exercises 3-4 times a day. She does not need to wear a brace. Yuri Bender MD [facility] 4:31 PM [facility] 09-05-2021 Attending History and physical note H&P reviewed, patient examined, no changes have occured since H&P completed. Source Note - Blanca Nunn APRN-CNP - 09/03/2021 10:00 AM EDT PRE-OP CONSULTATION DATE OF SERVICE: 09/03/2021 CUTTING SUPERVISOR PROVIDER: LG Shipley SURGICAL DIAGNOSIS: fibrosis of knee joint Proposed surgery date: 09/05/2021 (MAIN) Proposed surgical procedure: manipulation left knee under anesthesia Advice/opinion was requested by Yuri Bender MD for pre-surgical consultation. CHIEF COMPLAINT: left knee pain HISTORY OF PRESENT ILLNESS: Roderick Angel is a 16 y.o. female with a PMH significant for fibrosis of knee joint and ADHD who presents today for perioperative evaluation. Roderick had left knee surgery in 05/2021. Since surgery, Roderick reports associated symptoms of stiffness, instability, pain, and some popping. She rates her pain 7/10 and is not taking any medication for pain. She denies numbness and tingling. Patient was evaluated by orthopedics and it was determined that she would benefit from a left knee manipulation under anesthesia. Roderick has been otherwise at her baseline state of health and has not had any recent illnesses. The history is provided by the patient and a chart review for evaluation for surgical risk factors. Positive for COVID on 01/10/2020. COVID symptoms included:headache, loss of taste/smell, and fatigue and lasted for 4 days. This patient was assessed for potential MIS-C sequelae and was negative for persistent fever, tachycardia, shortness of breath, fatigue, GI symptoms, rashes/ conjunctivitis. Patient had cardiac evaluation with EGK and ECHO for sports clearance on 01/26/2020. MEDICAL/SURGICAL HISTORY: Past Medical History: Diagnosis Date ACL laxity, left 05/14/2021 Added automatically from request for surgery [id number] Acute lateral meniscal injury of the knee, left, initial encounter 05/14/2021 ADHD (attention deficit hyperactivity disorder) New ACL tear, left, initial encounter 05/14/2021 Past Surgical History: Procedure Laterality Date ANTERIOR CRUCIATE LIGAMENT REPAIR Left 05/21/2021 Arthroscopic anterior cruciate ligament reconstruction left knee with autologous quadriceps tendon graft; Left all inside medial meniscal repair; Left partial lateral meniscectomy performed by Yuri Bender MD at OR ANTERIOR CRUCIATE LIGAMENT REPAIR 05/21/2021 performed by Yuri Bender MD at OR Past hospitalizations: yes -not in the last year DRUG/FOOD ALLERGIES: Allergies Allergen Reactions Lactose Diarrhea MEDICATIONS: Outpatient Encounter Medications as of 09/03/2021 Medication Sig Dispense Refill Levonorgestrel (MIRENA, 52 MG, IU) 52 mg by Intrauterine route continuous fexofenadine (GEORGE) 180 MG tablet Take by mouth [DISCONTINUED] Meloxicam (MOBIC) 15 MG TABS tablet Take 1 Tablet (15 mg) by mouth daily Take with food. Do not use other NSAID's while on this medication 30 Tablet 0 methylphenidate HCl 36 MG ER tablet Take 2 Tablets (72 mg) by mouth every morning (Patient not taking: Reported on 09/03/2021) 60 Tablet 0 methylphenidate HCl (CONCERTA) 72 MG TBCR ER tablet Take 1 Tablet (72 mg) by mouth every morning (Patient not taking: Reported on 09/03/2021) 30 Tablet 0 methylphenidate (RITALIN) 20 MG tablet Take 2 Tabs (40mg) by mouth every afternoon for 30 days (Patient not taking: Reported on 09/03/2021) 60 Tablet 0 No facility-administered encounter medications on file as of 09/03/2021. ANESTHESIA HISTORY: Difficulty with anesthesia? No Family history of difficulty with anesthesia? no Signs/symptoms of LAYLA? no BLEEDING HISTORY: History of bleeding issues in patient? no Bleeding problems in family? no History of anemia in patient? no Sickle Cell issues in patient or family? N/A REVIEW OF SYSTEMS: Comprehensive review of systems: History obtained from chart review and the patient. Psychological ROS: positive for - ADHD Musculoskeletal ROS: positive for - left knee pain A complete ROS was performed. Pertinent positives have been documented above or are in the HPI. All other systems were negative. Recent Illnesses? no History of COVID-19? Yes -see HPI HISTORY: Noncontributory No history on file. DEVELOPMENTAL HISTORY: Milestones: All met as expected IMMUNIZATIONS: Stated as up to date COVID vaccinated? Yes; date: 05/23/2020, 06/13/2020, 06/13/2021 SOCIAL/FAMILY HISTORY: Roderick lives with one brother Special Needs: wears blue light glasses Preferred Language: [place] School: College- studying PT Smoking/Alcohol/Drug Use or Exposure: None Family History Problem Relation Age of Onset Drug Use Mother Bipolar Disorder Mother Alcohol Use Mother Drug Use Father Alcohol Use Father Depression Maternal Aunt Mental Illness Maternal Aunt self harmed Anesth Problems Neg Hx Bleeding Problem Neg Hx VITAL SIGNS: Vitals: 09/03/21 1013 BP: 124/64 Pulse: 96 Resp: 20 Temp: 36.4 C (97.5 F) Ht Readings from Last 1 Encounters: 09/03/21 (!) 156.5 cm (15 %, Z= -1.03)* * Growth percentiles are based on CDC (Girls, 2-20 Years) data. Wt Readings from Last 1 Encounters: 09/03/21 80.9 kg (95 %, Z= 1.65)* * Growth percentiles are based on CDC (Girls, 2-20 Years) data. 96.938 %ile (Z= 1.87) based on CDC (Girls, 2-20 Years) BMI-for-age based on BMI available as of 09/03/2021. SpO2 Readings from Last 3 Encounters: 09/03/21 99% 05/21/21 98% 05/14/21 100% PHYSICAL EXAM: General: Patient appears healthy, well developed, well nourished, in no acute distress and alert, oriented appropriately for age Head: atraumatic and normocephalic Neuro: alert, oriented appropriately for age Eyes: pupils equal, round, and reactive to light, sclera and conjunctiva clear Ears: canals clear, normal, tragus nontender, TM's clear bilaterally Nose: nares patent without discharge Dentition: intact Throat: oropharynx is clear without tonsillar inflammation or exudate, mucous membranes are pink and moist without lesions Neck: there is full range of motion Chest: breath sounds are clear to auscultation bilaterally without rales, rhonchi, or wheezes Cardiac: regular rate and rhythm, normal S1 and S2, no murmur, rub, or gallop Abdomen: soft, nontender, and nondistended Back: deferred : deferred Skin: pink, warm, well perfused, healed surgical scars to left knee, no rashes Lymphatic: no supraclavicular adenopathy noted and no cervical adenopathy noted Musculoskeletal: moves all extremities, distal pulses intact, capillary refill < 3 sec DIAGNOSTIC STUDIES REVIEWED: The following lab results have been ordered/reviewed. HCG ordered for day of procedure No results found for: CALCIUM, CO2, CL, CREATININE, GLU, K, NA, BUN No results found for: RBC, RDW, WBC, HCT, HGB, MCH, MCHC, MCV, MPV, BASOPCT, EOSPCT, LYMPHOPCT, MONOPCT, NEUTOPHILPCT, CORRECTEDWBC, NEUTROPHIL, NRBC, PLTEST No results found for: HGB No results found for: APTT, INR No results found for: TSH, S3HFIJD, D4YFEQO, THYROIDAB HCG,Urine Date Value Ref Range Status 05/21/2021 Negative mIU/mL Final Comment: Non females and males-Negative females-Positive No results found for: HCGSERUM ASSESSMENT: Patient Active Problem List Diagnosis ADHD (attention deficit hyperactivity disorder), combined type Mental disorder IUD (intrauterine device) in place Fibrosis of knee joint BMI (body mass index), pediatric, 95-99% for age Roderick Angel is a 16 y.o. female with fibrosis of knee joint and ADHD. She presents today for a history and physical for the above mentioned surgical procedure in good condition. Based on this evaluation for surgical risk factors and review of necessary clinical studies (if indicated), she has no other past medical history or past surgical history that would impact this procedure. PLAN: Surgery as scheduled Patient/family education Hemodynamic monitoring Respiratory monitoring Neurological monitoring Neurovascular monitoring -No contraindication to surgery based off history and physical exam. -HCG ordered for day of procedure -Family/Caregiver aware of plan for pre-surgical testing for COVID prior to surgery per surgeon orders. -Educated family that if patient develops viral illness, fever, requires unexpected breathing treatments or antibiotics or any other changes prior to surgery to notify the surgery center. -Educated family to stop all herbals/multivitamins/ibuprofen products at least 2 weeks prior to surgery. -Remove all piercings and nail luxembourger/acrylics on the day of surgery -Pre-operative acetaminophen ordered- to be given upon arrival and after vital signs have been obtained. Parent educated on benefits of preop analgesia and agrees with administration prior to procedure -Patient requests no narcotics due to family history of addiction Care coordination: Nyla Washington DO(PCP) OTHER FINDINGS OR COMMENTS: Cc: MD Blanca Beckford APRN-CNP 09/03/2021 1:01 PM [facility] 09-05-2021 History and physical note H&P reviewed, patient examined, no changes have occured since H&P completed. Source Note - Blanca Nunn APRN-CNP - 09/03/2021 10:00 AM EDT PRE-OP CONSULTATION DATE OF SERVICE: 09/03/2021 CUTTING SUPERVISOR PROVIDER: LG Shipley SURGICAL DIAGNOSIS: fibrosis of knee joint Proposed surgery date: 09/05/2021 (MAIN) Proposed surgical procedure: manipulation left knee under anesthesia Advice/opinion was requested by Yuri Bender MD for pre-surgical consultation. CHIEF COMPLAINT: left knee pain HISTORY OF PRESENT ILLNESS: Roderick Angel is a 16 y.o. female with a PMH significant for fibrosis of knee joint and ADHD who presents today for perioperative evaluation. Roderick had left knee surgery in 05/2021. Since surgery, Roderick reports associated symptoms of stiffness, instability, pain, and some popping. She rates her pain 7/10 and is not taking any medication for pain. She denies numbness and tingling. Patient was evaluated by orthopedics and it was determined that she would benefit from a left knee manipulation under anesthesia. Roderick has been otherwise at her baseline state of health and has not had any recent illnesses. The history is provided by the patient and a chart review for evaluation for surgical risk factors. Positive for COVID on 01/10/2020. COVID symptoms included:headache, loss of taste/smell, and fatigue and lasted for 4 days. This patient was assessed for potential MIS-C sequelae and was negative for persistent fever, tachycardia, shortness of breath, fatigue, GI symptoms, rashes/ conjunctivitis. Patient had cardiac evaluation with EGK and ECHO for sports clearance on 01/26/2020. MEDICAL/SURGICAL HISTORY: Past Medical History: Diagnosis Date ACL laxity, left 05/14/2021 Added automatically from request for surgery [id number] Acute lateral meniscal injury of the knee, left, initial encounter 05/14/2021 ADHD (attention deficit hyperactivity disorder) New ACL tear, left, initial encounter 05/14/2021 Past Surgical History: Procedure Laterality Date ANTERIOR CRUCIATE LIGAMENT REPAIR Left 05/21/2021 Arthroscopic anterior cruciate ligament reconstruction left knee with autologous quadriceps tendon graft; Left all inside medial meniscal repair; Left partial lateral meniscectomy performed by Yuri Bender MD at OR ANTERIOR CRUCIATE LIGAMENT REPAIR 05/21/2021 performed by Yuri Bender MD at OR Past hospitalizations: yes -not in the last year DRUG/FOOD ALLERGIES: Allergies Allergen Reactions Lactose Diarrhea MEDICATIONS: Outpatient Encounter Medications as of 09/03/2021 Medication Sig Dispense Refill Levonorgestrel (MIRENA, 52 MG, IU) 52 mg by Intrauterine route continuous fexofenadine (GEORGE) 180 MG tablet Take by mouth [DISCONTINUED] Meloxicam (MOBIC) 15 MG TABS tablet Take 1 Tablet (15 mg) by mouth daily Take with food. Do not use other NSAID's while on this medication 30 Tablet 0 methylphenidate HCl 36 MG ER tablet Take 2 Tablets (72 mg) by mouth every morning (Patient not taking: Reported on 09/03/2021) 60 Tablet 0 methylphenidate HCl (CONCERTA) 72 MG TBCR ER tablet Take 1 Tablet (72 mg) by mouth every morning (Patient not taking: Reported on 09/03/2021) 30 Tablet 0 methylphenidate (RITALIN) 20 MG tablet Take 2 Tabs (40mg) by mouth every afternoon for 30 days (Patient not taking: Reported on 09/03/2021) 60 Tablet 0 No facility-administered encounter medications on file as of 09/03/2021. ANESTHESIA HISTORY: Difficulty with anesthesia? No Family history of difficulty with anesthesia? no Signs/symptoms of LAYLA? no BLEEDING HISTORY: History of bleeding issues in patient? no Bleeding problems in family? no History of anemia in patient? no Sickle Cell issues in patient or family? N/A REVIEW OF SYSTEMS: Comprehensive review of systems: History obtained from chart review and the patient. Psychological ROS: positive for - ADHD Musculoskeletal ROS: positive for - left knee pain A complete ROS was performed. Pertinent positives have been documented above or are in the HPI. All other systems were negative. Recent Illnesses? no History of COVID-19? Yes -see HPI HISTORY: Noncontributory No history on file. DEVELOPMENTAL HISTORY: Milestones: All met as expected IMMUNIZATIONS: Stated as up to date COVID vaccinated? Yes; date: 05/23/2020, 06/13/2020, 06/13/2021 SOCIAL/FAMILY HISTORY: Roderick lives with one brother Special Needs: wears blue light glasses Preferred Language: [place] School: College- studying PT Smoking/Alcohol/Drug Use or Exposure: None Family History Problem Relation Age of Onset Drug Use Mother Bipolar Disorder Mother Alcohol Use Mother Drug Use Father Alcohol Use Father Depression Maternal Aunt Mental Illness Maternal Aunt self harmed Anesth Problems Neg Hx Bleeding Problem Neg Hx VITAL SIGNS: Vitals: 09/03/21 1013 BP: 124/64 Pulse: 96 Resp: 20 Temp: 36.4 C (97.5 F) Ht Readings from Last 1 Encounters: 09/03/21 (!) 156.5 cm (15 %, Z= -1.03)* * Growth percentiles are based on CDC (Girls, 2-20 Years) data. Wt Readings from Last 1 Encounters: 09/03/21 80.9 kg (95 %, Z= 1.65)* * Growth percentiles are based on CDC (Girls, 2-20 Years) data. 96.938 %ile (Z= 1.87) based on CDC (Girls, 2-20 Years) BMI-for-age based on BMI available as of 09/03/2021. SpO2 Readings from Last 3 Encounters: 09/03/21 99% 05/21/21 98% 05/14/21 100% PHYSICAL EXAM: General: Patient appears healthy, well developed, well nourished, in no acute distress and alert, oriented appropriately for age Head: atraumatic and normocephalic Neuro: alert, oriented appropriately for age Eyes: pupils equal, round, and reactive to light, sclera and conjunctiva clear Ears: canals clear, normal, tragus nontender, TM's clear bilaterally Nose: nares patent without discharge Dentition: intact Throat: oropharynx is clear without tonsillar inflammation or exudate, mucous membranes are pink and moist without lesions Neck: there is full range of motion Chest: breath sounds are clear to auscultation bilaterally without rales, rhonchi, or wheezes Cardiac: regular rate and rhythm, normal S1 and S2, no murmur, rub, or gallop Abdomen: soft, nontender, and nondistended Back: deferred : deferred Skin: pink, warm, well perfused, healed surgical scars to left knee, no rashes Lymphatic: no supraclavicular adenopathy noted and no cervical adenopathy noted Musculoskeletal: moves all extremities, distal pulses intact, capillary refill < 3 sec DIAGNOSTIC STUDIES REVIEWED: The following lab results have been ordered/reviewed. HCG ordered for day of procedure No results found for: CALCIUM, CO2, CL, CREATININE, GLU, K, NA, BUN No results found for: RBC, RDW, WBC, HCT, HGB, MCH, MCHC, MCV, MPV, BASOPCT, EOSPCT, LYMPHOPCT, MONOPCT, NEUTOPHILPCT, CORRECTEDWBC, NEUTROPHIL, NRBC, PLTEST No results found for: HGB No results found for: APTT, INR No results found for: TSH, E0OEPLU, B7QYGYM, THYROIDAB HCG,Urine Date Value Ref Range Status 05/21/2021 Negative mIU/mL Final Comment: Non females and males-Negative females-Positive No results found for: HCGSERUM ASSESSMENT: Patient Active Problem List Diagnosis ADHD (attention deficit hyperactivity disorder), combined type Mental disorder IUD (intrauterine device) in place Fibrosis of knee joint BMI (body mass index), pediatric, 95-99% for age Roderick Angel is a 16 y.o. female with fibrosis of knee joint and ADHD. She presents today for a history and physical for the above mentioned surgical procedure in good condition. Based on this evaluation for surgical risk factors and review of necessary clinical studies (if indicated), she has no other past medical history or past surgical history that would impact this procedure. PLAN: Surgery as scheduled Patient/family education Hemodynamic monitoring Respiratory monitoring Neurological monitoring Neurovascular monitoring -No contraindication to surgery based off history and physical exam. -HCG ordered for day of procedure -Family/Caregiver aware of plan for pre-surgical testing for COVID prior to surgery per surgeon orders. -Educated family that if patient develops viral illness, fever, requires unexpected breathing treatments or antibiotics or any other changes prior to surgery to notify the surgery center. -Educated family to stop all herbals/multivitamins/ibuprofen products at least 2 weeks prior to surgery. -Remove all piercings and nail luxembourger/acrylics on the day of surgery -Pre-operative acetaminophen ordered- to be given upon arrival and after vital signs have been obtained. Parent educated on benefits of preop analgesia and agrees with administration prior to procedure -Patient requests no narcotics due to family history of addiction Care coordination: Nyla Washington DO(PCP) OTHER FINDINGS OR COMMENTS: Cc: MD Blanca Beckford APRN-CNP 09/03/2021 1:01 PM documented in this encounter [facility] 09-03-2021 Note Is this a pre-proced ure screening test?->Yes [facility] 05-21-2021 Hospital Discharge instructions Dina Benson RN - 05/21/2021 3:49 PM EDT If you are unable to reach your Doctor, you may call the hospital phone number [phone] or Contact your doctor for: -Temperature over 101 F lasting more than 24 hours, difficulty breathing or pain not relieved by medication. -Increase in swelling, redness,bleeding or drainage at operative site. -Inability or difficulty urinating. Medications: -Your child was given Tylenol at 1219 and Toradol at 1434 Roderick may rotate Tylenol and Ibuprofen every 6 hours. It may be helpful to rotate medications so that every 3 hours she is receiving medication. An example of how this could work : Tylenol Toradol Diet: -Encourage clear liquids and advance diet as tolerated -If child becomes nauseated and/or vomits please wait 1/2 hour and restart clear liquids slowly General Guidelines: -Red or flushed appearance for a few hours is normal, this may come and go for up to 24 hours after surgery. -Your child may be drowsy and unsteady for the remainder of the day, please supervise during ambulation and activity. documented in this encounter [facility] 05-21-2021 Procedure note OPERATIVE REPORT NAME: Roderick Angel DATE OF : 2005 AGE: 15 y.o. GENDER: female WEIGHT: Weight - Scale: 73 kg ADMIT DATE: 05/21/2021 TYPE: outpatient [facility]#: [id number] ATTENDING: Yuri Bender MD DATE: 05/21/2021 Surgeon(s) and Role: * Yuri Bender MD - Primary * Evin Ariza MD - Resident - Assisting OR STAFF: Rail Operations Controller: Cari Watson RN; Peri De La Torre RN; Minda Terry RN Scrub Person: Maryam Carter; Mattie Castro Preoperative Diagnosis: 1. Left ACL tear 2. Possible left lateral and medial meniscal tears Postoperative Diagnosis: 1. Left ACL tear 2. Left posterior horn longitudinal medial meniscus tear 3. Left posterior horn lateral meniscus tear 4. 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 ACL reconstruction left knee with autologous quadriceps tendon graft 2. Left all inside medial meniscal repair 3. Left partial lateral meniscectomy ANESTHESIA: General, Nerve Block/Regional INDICATIONS FOR PROCEDURE: Roderick Angel is a 15 y.o. female who had a preoperative diagnosis as stated above. The risks and benefits of the procedure were explained to family as able by me. These included, but were not limited to, bleeding, infection, anesthesia, damage to surrounding structures, need for further procedures or operations, or unforeseen complications. They desired to proceed. DESCRIPTION OF PROCEDURE: The patient was taken to the operating room. After adequate general anesthesia was induced the patient was postioned on the operating table. An exam was performed of both knees. Her left knee was unstable plantar drawer Jazmine testing as well as pivot shift testing. However, it was stable and comparable to the opposite knee with dial testing, varus and valgus stress testing at 0 and 30 degrees and posterior drawer test. Care was taken to pad all bony prominences. The patient was then prepped and draped in the normal sterile fashion. Time out was performed. The quadriceps tendon was harvested through an anterior incision starting proximal to the superior pole the patella and extending 2 cm proximally. The peritenon over the quadriceps tendon was split longitudinally. A 9 mm double bladed Arthrex knife was used. This was followed by sharp dissection with a 15 blade scalpel. The Arthrex cigar cutting device was used to transect the graft proximally. It was prepared on the back table. A tight rope button was placed on the 1 loose end and the sutures for the ABS button were placed on the opposite side. It measured 9.5 mm in diameter on the tibial side and 9.0 mm diameter on the femoral side. It was 6 cm long. Standard anterolateral and anteromedial arthroscopy portals were utilized. The patellofemoral joint was normal. There were no loose bodies in the joint. The ACL was completely torn and the PCL was intact. The medial femoral condyle had some grade I and II chondromalacia on the weightbearing surface. The estimated release was about 1 x 1.5 cm area. The medial meniscus had a posterior horn longitudinal tear. It was in the red red zone. The lateral meniscus had a posterior horn radial, parrot-beak tear that was at the origin of the posterior horn of the meniscus. The origin was intact. The lateral meniscus tear was debrided with the shaver as well as a meniscal punches. I was able to contour back to a stable rim. I probed it again and it was stable. Photos were taken. The medial meniscal repair was performed using the [employer] FasT-Fix all inside sutures. 3 sutures were placed in a vertical mattress and all 3 had good purchase. I probed the meniscus again it was stable. Photos were taken. The old ACL was debrided. A small notchplasty was performed. The femoral guide jig was set on the lateral wall and a small stab wound was made over the lateral distal thigh. We used the flip cutter reamer to ream in a retrograde direction with a diameter of 9.0 mm and a depth of 25 mm. We secured this socket with the suture. The tibial guide jig was set at 55 degrees through the medial portal. A small incision was made over the proximal medial tibia. The guidepin was placed and we overreamed with a 9.5 reamer. We then irrigated all the bone chips out. The suture that was in the femoral socket was then pulled through the tibial socket and the used to pull the graft and button up in a retrograde fashion through the tibial socket into its final seating position in the femur after it was verified that the button was flipped through direct arthroscopic visualization through the lateral incision. We retracted the graft up to 2 cm. We placed the knee near full extension with a posterior directed force on the tibia and placed the 2 cm ABS button on the tibial side. The arthroscope was placed back in the knee. We pulled on the tight rope sutures on the femoral side to tighten a little bit more. We probed the graft and it was taut. It did not impinge on the notch. Final photos were taken and the knee was irrigated. The portals were closed with 3-0 Monocryl in a subcuticular layer. The other incisions were closed with 3-0 Vicryl followed by 3-0 Monocryl. Steri-Strips and sterile bandage were applied followed by an icing device and a knee brace in extension. All toes are pink with rapid capillary refill. ESTIMATED BLOOD LOSS: None SPECIMENS: None IMPLANTS: Implant Name Type Inv. Item Serial No. Airway Controller Lot No. LRB No. Used Action ARTH FIBERSTICK #2 [id number] Implant Misc ARTH FIBERSTICK #2 [id number] [employer] [id number] Left 1 Implanted FEMORAL ACL TIGHTROPE Implant Supply FEMORAL ACL TIGHTROPE [id number] [employer] [id number] Left 1 Implanted TIBIAL ACL TIGHTROPE W/BUTTON Implant Misc TIBIAL ACL TIGHTROPE W/BUTTON [id number] [employer] [id number] Left 1 Implanted FAST FIX FLEX CVD Implant Misc FAST FIX FLEX CVD [id number] [employer] ENDOSCOPY [id number] Left 1 Implanted FAST FIX 360 KNOT PUSH/SUT CUT Implant Supply FAST FIX 360 KNOT PUSH/SUT CUT [id number] [employer] ENDOSCOPY [id number] Left 1 Implant Supply Used FAST FIX FLEX CVD Implant Misc FAST FIX FLEX CVD [id number] [employer] ENDOSCOPY [id number] Left 2 Implanted 20MM TIGHTROPE ATTACH BUTTON Implant Supply 20MM TIGHTROPE ATTACH BUTTON [id number] [employer] [id number] Left 1 Implanted COMPLICATIONS: None. Roderick tolerated the procedure well. The patient was taken to PACU. The results of the operation were discussed with the family as able. Post-Operative Plan: She should be strict nonweightbearing for 4 weeks. She will follow the protocol for ACL reconstruction with meniscal repair. She can shower in 2 days. X-rays are not necessary upon follow-up. Yuri Bender MD [facility] 2:50 PM [facility] 05-21-2021 Miscellaneous Notes OPERATIVE REPORT NAME: Roderick Angel DATE OF : 2005 AGE: 15 y.o. GENDER: female WEIGHT: Weight - Scale: 73 kg ADMIT DATE: 05/21/2021 TYPE: outpatient [facility]#: [id number] ATTENDING: Yuri Bender MD DATE: 05/21/2021 Surgeon(s) and Role: * Yuri Bender MD - Primary * Evin Ariza MD - Resident - Assisting OR STAFF: Rail Operations Controller: Cari Watson RN; Peri De La Torre RN; Minda Terry RN Scrub Person: Maryam Carter; Mattie Castro Preoperative Diagnosis: 1. Left ACL tear 2. Possible left lateral and medial meniscal tears Postoperative Diagnosis: 1. Left ACL tear 2. Left posterior horn longitudinal medial meniscus tear 3. Left posterior horn lateral meniscus tear 4. 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 ACL reconstruction left knee with autologous quadriceps tendon graft 2. Left all inside medial meniscal repair 3. Left partial lateral meniscectomy ANESTHESIA: General, Nerve Block/Regional INDICATIONS FOR PROCEDURE: Roderick Angel is a 15 y.o. female who had a preoperative diagnosis as stated above. The risks and benefits of the procedure were explained to family as able by me. These included, but were not limited to, bleeding, infection, anesthesia, damage to surrounding structures, need for further procedures or operations, or unforeseen complications. They desired to proceed. DESCRIPTION OF PROCEDURE: The patient was taken to the operating room. After adequate general anesthesia was induced the patient was postioned on the operating table. An exam was performed of both knees. Her left knee was unstable plantar drawer Jazmine testing as well as pivot shift testing. However, it was stable and comparable to the opposite knee with dial testing, varus and valgus stress testing at 0 and 30 degrees and posterior drawer test. Care was taken to pad all bony prominences. The patient was then prepped and draped in the normal sterile fashion. Time out was performed. The quadriceps tendon was harvested through an anterior incision starting proximal to the superior pole the patella and extending 2 cm proximally. The peritenon over the quadriceps tendon was split longitudinally. A 9 mm double bladed Arthrex knife was used. This was followed by sharp dissection with a 15 blade scalpel. The Arthrex cigar cutting device was used to transect the graft proximally. It was prepared on the back table. A tight rope button was placed on the 1 loose end and the sutures for the ABS button were placed on the opposite side. It measured 9.5 mm in diameter on the tibial side and 9.0 mm diameter on the femoral side. It was 6 cm long. Standard anterolateral and anteromedial arthroscopy portals were utilized. The patellofemoral joint was normal. There were no loose bodies in the joint. The ACL was completely torn and the PCL was intact. The medial femoral condyle had some grade I and II chondromalacia on the weightbearing surface. The estimated release was about 1 x 1.5 cm area. The medial meniscus had a posterior horn longitudinal tear. It was in the red red zone. The lateral meniscus had a posterior horn radial, parrot-beak tear that was at the origin of the posterior horn of the meniscus. The origin was intact. The lateral meniscus tear was debrided with the shaver as well as a meniscal punches. I was able to contour back to a stable rim. I probed it again and it was stable. Photos were taken. The medial meniscal repair was performed using the [employer] FasT-Fix all inside sutures. 3 sutures were placed in a vertical mattress and all 3 had good purchase. I probed the meniscus again it was stable. Photos were taken. The old ACL was debrided. A small notchplasty was performed. The femoral guide jig was set on the lateral wall and a small stab wound was made over the lateral distal thigh. We used the flip cutter reamer to ream in a retrograde direction with a diameter of 9.0 mm and a depth of 25 mm. We secured this socket with the suture. The tibial guide jig was set at 55 degrees through the medial portal. A small incision was made over the proximal medial tibia. The guidepin was placed and we overreamed with a 9.5 reamer. We then irrigated all the bone chips out. The suture that was in the femoral socket was then pulled through the tibial socket and the used to pull the graft and button up in a retrograde fashion through the tibial socket into its final seating position in the femur after it was verified that the button was flipped through direct arthroscopic visualization through the lateral incision. We retracted the graft up to 2 cm. We placed the knee near full extension with a posterior directed force on the tibia and placed the 2 cm ABS button on the tibial side. The arthroscope was placed back in the knee. We pulled on the tight rope sutures on the femoral side to tighten a little bit more. We probed the graft and it was taut. It did not impinge on the notch. Final photos were taken and the knee was irrigated. The portals were closed with 3-0 Monocryl in a subcuticular layer. The other incisions were closed with 3-0 Vicryl followed by 3-0 Monocryl. Steri-Strips and sterile bandage were applied followed by an icing device and a knee brace in extension. All toes are pink with rapid capillary refill. ESTIMATED BLOOD LOSS: None SPECIMENS: None IMPLANTS: Implant Name Type Inv. Item Serial No. Airway Controller Lot No. LRB No. Used Action ARTH FIBERSTICK #2 [id number] Implant Misc ARTH FIBERSTICK #2 [id number] [employer] [id number] Left 1 Implanted FEMORAL ACL TIGHTROPE Implant Supply FEMORAL ACL TIGHTROPE [id number] [employer] [id number] Left 1 Implanted TIBIAL ACL TIGHTROPE W/BUTTON Implant Misc TIBIAL ACL TIGHTROPE W/BUTTON [id number] [employer] [id number] Left 1 Implanted FAST FIX FLEX CVD Implant Misc FAST FIX FLEX CVD [id number] [employer] ENDOSCOPY [id number] Left 1 Implanted FAST FIX 360 KNOT PUSH/SUT CUT Implant Supply FAST FIX 360 KNOT PUSH/SUT CUT [id number] [employer] ENDOSCOPY [id number] Left 1 Implant Supply Used FAST FIX FLEX CVD Implant Misc FAST FIX FLEX CVD [id number] [employer] ENDOSCOPY [id number] Left 2 Implanted 20MM TIGHTROPE ATTACH BUTTON Implant Supply 20MM TIGHTROPE ATTACH BUTTON [id number] [employer] [id number] Left 1 Implanted COMPLICATIONS: None. Roderick tolerated the procedure well. The patient was taken to PACU. The results of the operation were discussed with the family as able. Post-Operative Plan: She should be strict nonweightbearing for 4 weeks. She will follow the protocol for ACL reconstruction with meniscal repair. She can shower in 2 days. X-rays are not necessary upon follow-up. Yuri Bender MD [facility] 2:50 PM Problem: Falls, Risk of Goal: Absence of falls Outcome: Completed Goal: Absence of physical injury Outcome: Completed Problem: Anxiety, Patient/Family Goal: Effective coping Outcome: Completed Problem: Body Temperature - Abnormal, Risk of Goal: Body temperature within specified parameters Outcome: Completed Problem: Nausea/Vomiting Goal: Post operative nausea and vomiting Outcome: Completed Problem: Gas Exchange - Impaired Goal: Absence of hypoxia Outcome: Completed Problem: Fluid Volume Imbalance, Risk of Goal: Absence of imbalanced fluid volume signs and symptoms Outcome: Completed Problem: Infection Risk, Surgical Site Goal: Absence of infection signs and symptoms Outcome: Completed Problem: Adverse Surgical Event, Risk of Goal: Absence of injury Outcome: Completed Problem: Pain - Acute Goal: Reduced pain sensation Outcome: Completed Problem: Transition Readiness Goal: Knowledge of discharge instructions Outcome: Completed Goal: Able to safely transition to next level of care Outcome: Completed Physical Therapy Crutch Training Limited Evaluation and Education Patient Name: Roderick Angel MR#: [id number] Patient : 2005 Age:15 y.o. Location: [facility] Pediatric Surgery Treatment Date: 05/21/2021 Length of session: 15 mins Start Time: 1200 End Time: 1215 Referring Physician: Bertha Bender MD Note Type:outpatient surgery treatment note Subjective: PT order was received for crutch training. Pt is scheduled to have the following surgery: Arthroscopic anterior cruciate ligament reconstruction left knee with autologous quadriceps tendon graft Arthroscopic meniscal repair verses partial meniscectomy left knee MV. Family was with patient upon arrival including Mom and Dad. They remained present throughout the session. Pt reports prior experience with crutches at this time, pt has crutches of her own. Objective: Family and pt was educated in proper fit and safety precaution as noted below for bilateral axillary crutch use. They verbalize understanding at this time. Pt also educated on proper crutch use for level surface and stair negotiation for bilaterally axillary crutch use. See the below goals for details. Goals: Goals to be met by discharge. 1. Patient will perform transfers with no assistance in one sessions. Progress: Pt demonstrates good independence in instructed sit to/from stand transfers while maintaining NWB L LE. Pt has achieved this goal. Goal Met:05/21/2021 2. Patient will ambulate on level surface using bilateral axillary crutches 100 feet maintaining NWB L LE with no assistance in one sessions. Progress: Pt demonstrates good independence in bilateral axillary crutch use during level surface ambulation while maintaining NWB L LE for > 100 feet. Pt has achieved this goal. Goal Met:05/21/2021 3. Patient will ascend and descend one flight of stairs using two crutch method maintaining NWB L LE with no assistance in one sessions. Progress: Pt demonstrates good independence in bilateral axillary crutch method during stair negotiation x1 flight while maintaining NWB L LE. Pt has achieved this goal. Goal Met: 05/21/2021 4. Patient will be instructed in all safety precautions (i.e. Rugs, water, etc) prior to discharge from physical therapy services. Progress: Pt and family demonstrate good understanding of all safety precautions, proper fit, and proper use of bilateral axillary crutch use. Pt has achieved this goal and is safe to use crutches independently at this time. Goal Met:05/21/2021 Assessment: Pt tolerated all without incidence. Pt demonstrates good understanding of all education provided including safety precautions, proper fit, and proper use. Pt has achieved all above goals and is clear and safe to use bilateral axillary crutches at this time. Handout provided outlining crutch training education. Plan: Discharge from physical therapy: all goals met Ivania Zafar PT 05/21/2021 12:12 PM documented in this encounter [facility] 05-21-2021 Plan of care note Problem: Falls, Risk of Goal: Absence of falls Outcome: Completed Goal: Absence of physical injury Outcome: Completed Problem: Anxiety, Patient/Family Goal: Effective coping Outcome: Completed Problem: Body Temperature - Abnormal, Risk of Goal: Body temperature within specified parameters Outcome: Completed Problem: Nausea/Vomiting Goal: Post operative nausea and vomiting Outcome: Completed Problem: Gas Exchange - Impaired Goal: Absence of hypoxia Outcome: Completed Problem: Fluid Volume Imbalance, Risk of Goal: Absence of imbalanced fluid volume signs and symptoms Outcome: Completed Problem: Infection Risk, Surgical Site Goal: Absence of infection signs and symptoms Outcome: Completed Problem: Adverse Surgical Event, Risk of Goal: Absence of injury Outcome: Completed Problem: Pain - Acute Goal: Reduced pain sensation Outcome: Completed Problem: Transition Readiness Goal: Knowledge of discharge instructions Outcome: Completed Goal: Able to safely transition to next level of care Outcome: Completed [facility] 05-21-2021 Attending History and physical note H&P reviewed, patient examined, no changes have occured since H&P completed. Source Note - Camilla Guerrero APRN-CNP - 05/14/2021 10:30 AM EDT PRE-OP CONSULTATION DATE OF SERVICE: 05/14/2021 CUTTING SUPERVISOR PROVIDER: LG Ortiz SURGICAL DIAGNOSIS: ACL laxity left Proposed surgery date: 05/21/2021 Proposed surgical procedure: Arthroscopic anterior cruciate ligament reconstruction left knee with autologous quadriceps tendon graft Arthroscopic meniscal repair verses partial meniscectomy left knee MV Advice/opinion was requested by Yuri Bender MD for pre-surgical consultation. CHIEF COMPLAINT: left knee injury HISTORY OF PRESENT ILLNESS: Roderick Angel is a 15 y.o. 9 m.o. female with a PMH significant for a Left knee injury who presents today for perioperative evaluation. The history is provided by the patient and mother and a chart review for evaluation for surgical risk factors. She had a collision with another player one week ago and had immediate pain/ weakness/ swelling- she needed carried off the field- she was seen on the sidelines by Dr Bender and sent for an MRI- he saw them this morning to review the MRI/ discuss plan of care- they are opting for surgery. No other PMH to impact care. Child is adopted by history Positive for COVID on 01/10/2020. COVID symptoms included:headache/ loss of taste and smell and fatigue and lasted for 4 days. This patient was assessed for potential MIS-C sequelae and was negative for persistent fever, tachycardia, shortness of breath, fatigue, GI symptoms, rashes/ conjunctivitis. She has had cardiac review/ echo/ ekg for sports clearance 01/26/2020 MEDICAL/SURGICAL HISTORY: Past Medical History: Diagnosis Date ADHD (attention deficit hyperactivity disorder) History reviewed. No pertinent surgical history. Past hospitalizations: yes Rotovirus age 2 yrs DRUG/FOOD ALLERGIES: No Known Allergies MEDICATIONS: Outpatient Encounter Medications as of 05/14/2021 Medication Sig Dispense Refill methylphenidate HCl (CONCERTA) 72 MG TBCR ER tablet Take 1 Tablet (72 mg) by mouth every morning 30 Tablet 0 methylphenidate (RITALIN) 20 MG tablet Take 2 Tabs (40mg) by mouth every afternoon for 30 days 60 Tablet 0 fexofenadine (GEORGE) 180 MG tablet Take by mouth [DISCONTINUED] methylphenidate (RITALIN) 20 MG tablet Take 2 Tabs (40mg) by mouth every afternoon for 30 days 60 Tablet 0 Levonorgestrel (MIRENA, 52 MG, IU) 52 mg by Intrauterine route continuous [DISCONTINUED] methylphenidate HCl (CONCERTA) 72 MG TBCR ER tablet Take 1 Tablet (72 mg) by mouth every morning 30 Tablet 0 No facility-administered encounter medications on file as of 05/14/2021. ANESTHESIA HISTORY: Difficulty with anesthesia? No Prior Anesthesia Family history of difficulty with anesthesia? no Signs/symptoms of LAYLA? no BLEEDING HISTORY: History of bleeding issues in patient? no Bleeding problems in family? no History of anemia in patient? no Sickle Cell issues in patient or family? N/A REVIEW OF SYSTEMS: Comprehensive review of systems: History obtained from Mother, chart review and the patient. General ROS: negative Respiratory ROS: no cough, shortness of breath, or wheezing Cardiovascular ROS: no chest pain or dyspnea on exertion Gastrointestinal ROS: no abdominal pain, change in bowel habits, or black or bloody stools Musculoskeletal ROS: positive for - gait disturbance, joint pain and joint swelling A complete ROS was performed. Pertinent positives have been documented above or are in the HPI. All other systems were negative. Recent Illnesses? no History of COVID-19? Jan 2020 HISTORY: , labor and delivery unremarkable. Patient was discharged home with mother. No history on file. DEVELOPMENTAL HISTORY: Milestones: All met as expected IMMUNIZATIONS: Stated as up to date, no records available COVID vaccinated? Yes; date: 06/28/2021 SOCIAL/FAMILY HISTORY: Roderick lives with parents and 3 sibs Special Needs: None Preferred Language: Uzbek Daycare: no School: [employer] Smoking/Alcohol/Drug Use or Exposure: None Family History Problem Relation Age of Onset Drug Use Mother Bipolar Disorder Mother Alcohol Use Mother Drug Use Father Alcohol Use Father Depression Maternal Aunt Mental Illness Maternal Aunt self harmed Anesth Problems Neg Hx Bleeding Problem Neg Hx VITAL SIGNS: Vitals: 05/14/21 1034 BP: 116/64 Pulse: 72 Resp: 16 Temp: 36.7 C (98.1 F) Ht Readings from Last 1 Encounters: 05/14/21 156.6 cm (16 %, Z= -1.00)* * Growth percentiles are based on CDC (Girls, 2-20 Years) data. Wt Readings from Last 1 Encounters: 05/14/21 73 kg (90 %, Z= 1.31)* * Growth percentiles are based on CDC (Girls, 2-20 Years) data. 94.558 %ile (Z= 1.60) based on CDC (Girls, 2-20 Years) BMI-for-age based on BMI available as of 05/14/2021. SpO2 Readings from Last 3 Encounters: 05/14/21 100% 10/20/19 100% 04/18/19 98% PHYSICAL EXAM: General: Patient appears healthy, well developed, well nourished, in no acute distress Head: atraumatic and normocephalic Neuro: alert, oriented appropriately for age Eyes: pupils equal, round, and reactive to light, sclera and conjunctiva clear Ears: canals clear, normal, tragus nontender Nose: nares patent without discharge Dentition: intact Throat: oropharynx is clear Neck: supple Chest: breath sounds are clear to auscultation bilaterally without rales, rhonchi, or wheezes Cardiac: regular rate and rhythm, normal S1 and S2, peripheral pulses strong and equal, capillary refill is normal Abdomen: abdomen is soft, nontender, and nondistended without hepatosplenomegaly or masses Back: deferred : deferred Skin: pink, warm, well perfused Lymphatic: no adenopathy noted Musculoskeletal: left knee with diffuse swelling but improved per patient- skin otherwise intact comfortable in the chair- brace with her- crutches with her as well DIAGNOSTIC STUDIES REVIEWED: The following lab results have been ordered/reviewed. covid testing- HCG day of surgery No results found for: CALCIUM, CO2, CL, CREATININE, GLU, K, NA, BUN No results found for: RBC, RDW, WBC, HCT, HGB, MCH, MCHC, MCV, MPV, BASOPCT, EOSPCT, LYMPHOPCT, MONOPCT, NEUTOPHILPCT, CORRECTEDWBC, NEUTROPHIL, NRBC, PLTEST No results found for: HGB No results found for: APTT, INR No results found for: TSH, K2NUWQH, A0XMPQT, THYROIDAB No results found for: HCGUR No results found for: HCGSERUM ASSESSMENT: Patient Active Problem List Diagnosis ADHD (attention deficit hyperactivity disorder), combined type BMI (body mass index), pediatric, 85% to less than 95% for age Mental disorder IUD (intrauterine device) in place Roderick Angel is a 15 y.o. 9 m.o. female with hx of a left knee injury. she presents today for a history and physical for the above mentioned surgical procedure in good condition. Based on this evaluation for surgical risk factors and review of necessary clinical studies (if indicated), she has no other past medical history or past surgical history that would impact this procedure. PLAN: Surgery as scheduled Pain management team Patient/family education Nutritional management Hemodynamic monitoring Respiratory monitoring Neurovascular monitoring Care coordination: Nyla Washington DO OTHER FINDINGS OR COMMENTS: -COVID testing scheduled 72 hours prior to surgery -No other labs required prior to surgery Will need HCG day of surgery -Educated family that if patient develops viral illness, fever, requires unexpected breathing treatments or antibiotics or any other changes prior to surgery to notify the surgery center. -Remove all piercings and nail luxembourger/acrylics on the day of surgery -Pre-operative acetaminophen ordered- Educated on benefits of pre-op analgesia and agree with administration. Please verify dose with anesthesia prior to administration. To be given upon arrival and after vital signs have been obtained Pt/ mom agree Child's bio parents had issues with narcotic abuse and she would like to avoid taking - Dr Bender was looking at ordering a longer acting block She also reports that she gets nauseated very quickly and is worried about PONV Cc: MD Camilla Beckford APRN-CNP 05/14/2021 10:49 AM [facility] 05-21-2021 History and physical note H&P reviewed, patient examined, no changes have occured since H&P completed. Source Note - Camilla Guerrero APRN-CNP - 05/14/2021 10:30 AM EDT PRE-OP CONSULTATION DATE OF SERVICE: 05/14/2021 CUTTING SUPERVISOR PROVIDER: LG Ortiz SURGICAL DIAGNOSIS: ACL laxity left Proposed surgery date: 05/21/2021 Proposed surgical procedure: Arthroscopic anterior cruciate ligament reconstruction left knee with autologous quadriceps tendon graft Arthroscopic meniscal repair verses partial meniscectomy left knee MV Advice/opinion was requested by Yuri Bender MD for pre-surgical consultation. CHIEF COMPLAINT: left knee injury HISTORY OF PRESENT ILLNESS: Roderick Angel is a 15 y.o. 9 m.o. female with a PMH significant for a Left knee injury who presents today for perioperative evaluation. The history is provided by the patient and mother and a chart review for evaluation for surgical risk factors. She had a collision with another player one week ago and had immediate pain/ weakness/ swelling- she needed carried off the field- she was seen on the sidelines by Dr Bender and sent for an MRI- he saw them this morning to review the MRI/ discuss plan of care- they are opting for surgery. No other PMH to impact care. Child is adopted by history Positive for COVID on 01/10/2020. COVID symptoms included:headache/ loss of taste and smell and fatigue and lasted for 4 days. This patient was assessed for potential MIS-C sequelae and was negative for persistent fever, tachycardia, shortness of breath, fatigue, GI symptoms, rashes/ conjunctivitis. She has had cardiac review/ echo/ ekg for sports clearance 01/26/2020 MEDICAL/SURGICAL HISTORY: Past Medical History: Diagnosis Date ADHD (attention deficit hyperactivity disorder) History reviewed. No pertinent surgical history. Past hospitalizations: yes Rotovirus age 2 yrs DRUG/FOOD ALLERGIES: No Known Allergies MEDICATIONS: Outpatient Encounter Medications as of 05/14/2021 Medication Sig Dispense Refill methylphenidate HCl (CONCERTA) 72 MG TBCR ER tablet Take 1 Tablet (72 mg) by mouth every morning 30 Tablet 0 methylphenidate (RITALIN) 20 MG tablet Take 2 Tabs (40mg) by mouth every afternoon for 30 days 60 Tablet 0 fexofenadine (GEORGE) 180 MG tablet Take by mouth [DISCONTINUED] methylphenidate (RITALIN) 20 MG tablet Take 2 Tabs (40mg) by mouth every afternoon for 30 days 60 Tablet 0 Levonorgestrel (MIRENA, 52 MG, IU) 52 mg by Intrauterine route continuous [DISCONTINUED] methylphenidate HCl (CONCERTA) 72 MG TBCR ER tablet Take 1 Tablet (72 mg) by mouth every morning 30 Tablet 0 No facility-administered encounter medications on file as of 05/14/2021. ANESTHESIA HISTORY: Difficulty with anesthesia? No Prior Anesthesia Family history of difficulty with anesthesia? no Signs/symptoms of LAYLA? no BLEEDING HISTORY: History of bleeding issues in patient? no Bleeding problems in family? no History of anemia in patient? no Sickle Cell issues in patient or family? N/A REVIEW OF SYSTEMS: Comprehensive review of systems: History obtained from Mother, chart review and the patient. General ROS: negative Respiratory ROS: no cough, shortness of breath, or wheezing Cardiovascular ROS: no chest pain or dyspnea on exertion Gastrointestinal ROS: no abdominal pain, change in bowel habits, or black or bloody stools Musculoskeletal ROS: positive for - gait disturbance, joint pain and joint swelling A complete ROS was performed. Pertinent positives have been documented above or are in the HPI. All other systems were negative. Recent Illnesses? no History of COVID-19? Jan 2020 HISTORY: , labor and delivery unremarkable. Patient was discharged home with mother. No history on file. DEVELOPMENTAL HISTORY: Milestones: All met as expected IMMUNIZATIONS: Stated as up to date, no records available COVID vaccinated? Yes; date: 06/28/2021 SOCIAL/FAMILY HISTORY: oRderick lives with parents and 3 sibs Special Needs: None Preferred Language: Uzbek Daycare: no School: [employer] Smoking/Alcohol/Drug Use or Exposure: None Family History Problem Relation Age of Onset Drug Use Mother Bipolar Disorder Mother Alcohol Use Mother Drug Use Father Alcohol Use Father Depression Maternal Aunt Mental Illness Maternal Aunt self harmed Anesth Problems Neg Hx Bleeding Problem Neg Hx VITAL SIGNS: Vitals: 05/14/21 1034 BP: 116/64 Pulse: 72 Resp: 16 Temp: 36.7 C (98.1 F) Ht Readings from Last 1 Encounters: 05/14/21 156.6 cm (16 %, Z= -1.00)* * Growth percentiles are based on CDC (Girls, 2-20 Years) data. Wt Readings from Last 1 Encounters: 05/14/21 73 kg (90 %, Z= 1.31)* * Growth percentiles are based on CDC (Girls, 2-20 Years) data. 94.558 %ile (Z= 1.60) based on CDC (Girls, 2-20 Years) BMI-for-age based on BMI available as of 05/14/2021. SpO2 Readings from Last 3 Encounters: 05/14/21 100% 10/20/19 100% 04/18/19 98% PHYSICAL EXAM: General: Patient appears healthy, well developed, well nourished, in no acute distress Head: atraumatic and normocephalic Neuro: alert, oriented appropriately for age Eyes: pupils equal, round, and reactive to light, sclera and conjunctiva clear Ears: canals clear, normal, tragus nontender Nose: nares patent without discharge Dentition: intact Throat: oropharynx is clear Neck: supple Chest: breath sounds are clear to auscultation bilaterally without rales, rhonchi, or wheezes Cardiac: regular rate and rhythm, normal S1 and S2, peripheral pulses strong and equal, capillary refill is normal Abdomen: abdomen is soft, nontender, and nondistended without hepatosplenomegaly or masses Back: deferred : deferred Skin: pink, warm, well perfused Lymphatic: no adenopathy noted Musculoskeletal: left knee with diffuse swelling but improved per patient- skin otherwise intact comfortable in the chair- brace with her- crutches with her as well DIAGNOSTIC STUDIES REVIEWED: The following lab results have been ordered/reviewed. covid testing- HCG day of surgery No results found for: CALCIUM, CO2, CL, CREATININE, GLU, K, NA, BUN No results found for: RBC, RDW, WBC, HCT, HGB, MCH, MCHC, MCV, MPV, BASOPCT, EOSPCT, LYMPHOPCT, MONOPCT, NEUTOPHILPCT, CORRECTEDWBC, NEUTROPHIL, NRBC, PLTEST No results found for: HGB No results found for: APTT, INR No results found for: TSH, H6ICPYZ, Z6DESNG, THYROIDAB No results found for: HCGUR No results found for: HCGSERUM ASSESSMENT: Patient Active Problem List Diagnosis ADHD (attention deficit hyperactivity disorder), combined type BMI (body mass index), pediatric, 85% to less than 95% for age Mental disorder IUD (intrauterine device) in place Roderick Angel is a 15 y.o. 9 m.o. female with hx of a left knee injury. she presents today for a history and physical for the above mentioned surgical procedure in good condition. Based on this evaluation for surgical risk factors and review of necessary clinical studies (if indicated), she has no other past medical history or past surgical history that would impact this procedure. PLAN: Surgery as scheduled Pain management team Patient/family education Nutritional management Hemodynamic monitoring Respiratory monitoring Neurovascular monitoring Care coordination: Nyla Washington DO OTHER FINDINGS OR COMMENTS: -COVID testing scheduled 72 hours prior to surgery -No other labs required prior to surgery Will need HCG day of surgery -Educated family that if patient develops viral illness, fever, requires unexpected breathing treatments or antibiotics or any other changes prior to surgery to notify the surgery center. -Remove all piercings and nail luxembourger/acrylics on the day of surgery -Pre-operative acetaminophen ordered- Educated on benefits of pre-op analgesia and agree with administration. Please verify dose with anesthesia prior to administration. To be given upon arrival and after vital signs have been obtained Pt/ mom agree Child's bio parents had issues with narcotic abuse and she would like to avoid taking - Dr Bender was looking at ordering a longer acting block She also reports that she gets nauseated very quickly and is worried about PONV Cc: MD Camilla Beckford APRN-CNP 05/14/2021 10:49 AM documented in this encounter [facility] 05-21-2021 Consult note Formatting of th is note might be different from the original. Physical Therapy Crutch Training Limited Evaluation and Education Patient Name: Roderick Angel MR#: [id number] Patient : 2005 Age:15 y.o. Location: [facility] Pediatric Surgery Treatment Date: 05/21/2021 Length of session: 15 mins Start Time: 1200 End Time: 1215 Referring Physician: Bertha Bender MD Note Type:outpatient surgery treatment note Subjective: PT order was received for crutch training. Pt is scheduled to have the following surgery: Arthroscopic anterior cruciate ligament reconstruction left knee with autologous quadriceps tendon graft Arthroscopic meniscal repair verses partial meniscectomy left knee MV. Family was with patient upon arrival including Mom and Dad. They remained present throughout the session. Pt reports prior experience with crutches at this time, pt has crutches of her own. Objective: Family and pt was educated in proper fit and safety precaution as noted below for bilateral axillary crutch use. They verbalize understanding at this time. Pt also educated on proper crutch use for level surface and stair negotiation for bilaterally axillary crutch use. See the below goals for details. Goals: Goals to be met by discharge. 1. Patient will perform transfers with no assistance in one sessions. Progress: Pt demonstrates good independence in instructed sit to/from stand transfers while maintaining NWB L LE. Pt has achieved this goal. Goal Met:05/21/2021 2. Patient will ambulate on level surface using bilateral axillary crutches 100 feet maintaining NWB L LE with no assistance in one sessions. Progress: Pt demonstrates good independence in bilateral axillary crutch use during level surface ambulation while maintaining NWB L LE for > 100 feet. Pt has achieved this goal. Goal Met:05/21/2021 3. Patient will ascend and descend one flight of stairs using two crutch method maintaining NWB L LE with no assistance in one sessions. Progress: Pt demonstrates good independence in bilateral axillary crutch method during stair negotiation x1 flight while maintaining NWB L LE. Pt has achieved this goal. Goal Met: 05/21/2021 4. Patient will be instructed in all safety precautions (i.e. Rugs, water, etc) prior to discharge from physical therapy services. Progress: Pt and family demonstrate good understanding of all safety precautions, proper fit, and proper use of bilateral axillary crutch use. Pt has achieved this goal and is safe to use crutches independently at this time. Goal Met:05/21/2021 Assessment: Pt tolerated all without incidence. Pt demonstrates good understanding of all education provided including safety precautions, proper fit, and proper use. Pt has achieved all above goals and is clear and safe to use bilateral axillary crutches at this time. Handout provided outlining crutch training education. 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 Fibrosis of knee joint, unspecified laterality Fibrosis of knee joint, unspecified laterality [facility] Diagnosis Mental disorder Unspecified nonpsychotic mental disorder BMI (body mass index), pediatric, 85% to less than 95% for age Body Mass Index, pediatric, 85th percentile to less than 95th percentile for age Pre-operative examination Preoperative examination, unspecified IUD (intrauterine device) in place Presence of intrauterine contraceptive device ADHD (attention deficit hyperactivity disorder), combined type Attention deficit disorder with hyperactivity BMI (body mass index), pediatric, 95-99% for age Obesity, unspecified Fibrosis of knee joint, unspecified laterality ACL laxity, left New ACL tear, left, initial encounter Acute lateral meniscal injury of the knee, left, initial encounter Fibrosis of left knee joint [facility] Diagnosis Sore throat- Primary Acute pharyngitis Hemoptysis Hemoptysis, unspecified Viral URI with cough Acute upper respiratory infections of unspecified site documented in this encounter [facility] for visit Narrative* Auth/Cert Specialty Diagnoses / Procedures Referred By Jasiel t Referred To Contact Diagnoses ACL laxity, left ACL laxity, left [M23.8X2] Procedures RI KNEE SCOPE,AID ANT CRUCIATE REPAIR RI KNEE SCOPE,MED OR LAT MENIS REPAIR RI ARTHRS KNE SURG W/MENISCECTOMY MED/LAT W/SHVG KNEE ACL RECONSTRUCTION QUAD TENDON ARTHROSCOPY KNEE MENISCAL REPAIR [address] [place] [address] Referral ID Status Reason Start Date Expiration Date Visits Re quested Visits Authorized [id number] 1 1 [facility] Summary Purpose Family History No Family History Records FoundNo Family History Records FoundNo Family History Records FoundNo Family History Records Found Advance Directives No Advanced Directives Records FoundDocuments on File Type Date Recorded Patient Criminal Analyst Expl anation Power of Wrapper [employer]cher Documents on File Type Date Recorded Patient Criminal Analyst Expl anation Advance Directives and Livin g Will 09/05/2021 2:35 PM Additional Source Comments INFORMATION SOURCE (unrecogn ized section and content) DATE CREATED AUTHOR AUTHOR'S ORGANIZ ATION 10/12/2022 [facility] DATE CREATED AUTHOR AUTHOR'S ORGANIZ ATION 01/19/2023 [facility] DATE CREATED AUTHOR AUTHOR'S ORGANIZ ATION 01/27/2023 [facility] Scheduled Active and Recently Administ ered Medications (unrecognized section and content) Continuous Medication Order 05/19/2021 05/20/2021 05/21/2021 Lactated Ringers IV (CANCELED) CONTINUOUS, Intravenous, at 60 mL/hr, Starting on Wed05/21/21 at 1330, For 90 days, PACU 1458 (New Bag - Prov ider: Dina Benson RN)1611 (Stopped - Provider: Dina Benson, RN)1613 (Stopped - Provider: Dina Benson RN) PRN Medication Order 05/19/2021 05/20/2021 05/21/2021 Oxygen (CANCELED) See Flowsheet Row, PRN, Starting on Wed05/21/21 at 1258, Until Wed05/21/21 at 1606, Keep sats greater or equal to 95% 1501 (Gas Start - Pr ovider: Dina Benson RN)1505 (Gas Rate/Dose Verify - Provider: Dina Benson RN)1520 (Gas Stop - Provider: Dina Benson RN) XEROFORM PETROLAT GAUZE 1 X8 (XEROFORM) 1 x 8 dressing (CANCELED) PRN, Starting on Wed05/21/21 at 1445, Until Wed05/21/21 at 1456, Intra-op 1445 (Given - Provid er: Yuri eBnder MD) Scheduled Medication Order 09/03/2021 09/04/2021 09/05/2021 acetaminophen (TYLENOL) tablet 1,000 mg (COMPLETED) 1,000 mg (12.4 mg/kg/DOSE), Oral, ONCE, 1 dose, On Wed09/05/21 at 1430, Pre-op 1435 (Given - Provid er: Minda Salinas RN) Continuous Medication Order 09/03/2021 09/04/2021 09/05/2021 Lactated Ringers IV (CANCELED) CONTINUOUS, Intravenous, at 60 mL/hr, Starting on Wed09/05/21 at 1630, For 90 days, PACU 1626 (Restarted from Bag - Provider: Anthony Castellanos, MORELIA)1702 (Dose/Rate Verification - Provider: Niharika Stacy, MORELIA)1727 (Stopped - Provider: Niharika StacyMORELIA) PRN Medication Order 09/03/2021 09/04/2021 09/05/2021 Oxygen (CANCELED) See Flowsheet Row, PRN, Starting on Wed09/05/21 at 1623, Until Wed09/05/21 at 1737, Keep sats greater or equal to 95% 1618 (Gas Start - Pr ovider: Anthony Castellanos RN)1645 (Gas Stop - Provider: Anthony Castellanos RN) Care Teams (unrecognized sec tion and content) Driver Utility Worker Relationship Specialty Start Date End Date Nyla Washington, DO [address], [address] [place] [address] PCP - General Pediatrics 11/29/19 Driver Utility Worker Relationship Specialty Start Date End Date Nyla Washington, DO [address] [facility], [address] [place] [address] PCP - General Pediatrics 11/29/19 Reason for Visit (unrecogniz ed section and content) Referral ID Status Reason Start Date Expiration Date Visits Re quested Visits Authorized [id number] 1 Reason Comments Nasal Congestion drainage, cough, sor e throat and headache x 1 day Source Comments (unrecognize d section and content) In the event this informatio n is protected by the Federal Confidentiality of Alcohol and Drug Abuse Patient Records regulations: The Federal rules restrict any use of the information to criminally investigate or prosecute any alcohol or drug abuse patient.[facility] FOR RECORDS PERTAINING TO PATIENTS WHO ARE OR HAVE BEEN ENROLLED IN A CHEMICAL DEPENDENCY/SUBSTANCEABUSE PROGRAM, SOME INFORMATION MAY BE OMITTED. This clinical summary was aggregated from multiple sources. Caution should be exercised in using it in the provision of clinical care. This summary normalizes information from multiple sources, and as a consequence, information in this document may materially change the coding, format and clinical context of patient data. In addition, data may be omitted in some cases. CLINICAL DECISIONS SHOULD BE BASED ON THE PRIMARY CLINICAL RECORDS. [employer]. provides no warranty or guarantee of the accuracy or completeness of information in this document.
== END 2023-02-21 16:58 | disposition home or self-care (01) ==
LOC: ED 16:51
PROVIDERS: Emergency Provider Emergency Medicine; Visit Provider Emergency Medicine
DX: S39.012A Strain of muscle, fascia and tendon of lower back, initial encounter (principal); X50.1XXA Overexertion from prolonged static or awkward postures, initial encounter; M25.562 Pain in left knee; G89.29 Other chronic pain
CPT/HCPCS: 99282

== ENCOUNTER 2025-01-28 17:31 | Emergency (ER) | payer BC, SELFPAY ==
[2025-01-28 17:32] VITALS: BP 159/100; PULSE 104; RESP 16; TEMP 36.2; O2SAT 98; BMI 36.5
--- NOTE | 2025-01-28 17:43 | RAD_ITS ---
PROCEDURE: KNEE 4 OR MORE VIEWS 01/28/2025 REASON FOR EXAM: PAIN, INJURY TECHNIQUE: Procedure Code: RADKN Modality: DX Procedure: KNEE 4 OR MORE VIEWS FINDINGS: No evidence of acute fracture or dislocation. Prior ligamentous repair. Mild tricompartmental degenerative changes. No knee joint effusion. RAD/Knee 4 or More Views IMPRESSION: No acute abnormality. Postsurgical changes. Mild osteoarthrosis. Reading Location: [facility]
--- NOTE | 2025-01-28 17:43 | EDS_ITS ---
HPI History of Present Illness Chief Complaint: Lower Extremity Injury Detail of Chief Complaint: Left knee pain Informant: patient Narrative Narrative: Patient presents to the emergency department with complaint of pain in her left knee. She states that she was jogging on a treadmill going about 5 miles an hour when she had sudden onset of a popping and grinding sensation. Patient able to bear weight but feels like the knee is unstable and wants to slide forward. 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 Patient sees orthopedic surgeon at [facility]. [facility] Medical History (Updated 01/28/25 @ 18:[address] Geraldo Cochran DO) Non-smoker Migraines Allergy/AdvReac Type Severity Reaction Status Date / Time No Known Allergies Allergy Verified 01/28/25 17:33 Social History Smoking Status: Never smoker ROS ROS ED Review of Systems ROS Unobtainable: other Constitutional Constitutional ED: Reports lethargy; Denies chills, fever(s), sweats or weight loss Eyes Eyes: Denies blurry vision, change in vision or diplopia ENT ENT ED: Denies rhinorrhea or sore throat Cardiovascular Cardiovascular: Denies chest pain, orthopnea or racing heartbeat Respiratory/Chest Respiratory/Chest: Denies cough, dyspnea, dyspnea on exertion, orthopnea or sputum Gastrointestinal Gastrointestinal: Denies abdominal pain, diarrhea, nausea or vomiting Genitourinary Genitourinary ED: Denies dysuria, hematuria or urinary frequency Musculoskeletal Musculoskeletal: Reports other Details: Left knee pain ; Denies arthralgias, back pain, myalgias or neck pain Integumentary Denies abscess, Abrasions or rash Neurologic Neurologic: Denies headache(s) or weakness Psychiatric Psychiatric: Denies anxiety, depression or suicidal thoughts Endocrine Endocrinology: Denies polydipsia, polyphagia or polyuria Hematologic/Lymphatic Hematologic/Lymphatic: Denies easy bleeding, easy bruising or lymphadenopathy Allergic/Immunologic Allergic/Immunologic ED: Denies mouth swelling, tongue swelling or urticaria EXAM Physical Exam Const Vital Signs: 01/28/25 17:32 Temperature 97.1 F L Temperature Source Temporal Pulse Rate 104 H Respiratory Rate 16 Blood Pressure 159/100 H Blood Pressure Mean 119 Pulse Ox 98 Oxygen Delivery Method Room Air Positive well nourished and well developed General Appearance ED: well developed and NAD HEENT Reports TM's clear and moist mucous membranes normocephalic and atraumatic; Negative for trauma or tenderness Tympanic Membrane ED: Yes TM's clear Eyes PERRL and EOMs intact bilaterally General Eye ED: Negative for pale conjunctiva or scleral icterus Neck no lymphadenopathy, supple and no JVD General: Negative for tenderness Chest Wall inspection of chest normal and palpation of chest normal Chest: Negative for tenderness Resp normal respiratory effort and clear to auscultation bilaterally Effort and Inspection: Negative for respiratory distress or pain with movement Auscultation: Negative for rhonchi, wheezes or diminished lung sounds Cardio regular rate, regular rhythm, S1 normal heart sound, S2 normal heart sound and no murmurs Peripheral Pulses: pulses 2+ throughout GI normal to inspection, nondistended, normoactive bowel sounds, soft to palpation, non-tender, non-distended and no masses Back/Spine no CVA tenderness and no thoracic nor lumbar tenderness Extremity Extremity Narrative: Left knee-no obvious effusion. Mild diffuse tenderness to the medial and lateral joint lines. She is able to flex the knee. Do not appreciate any s ignificant laxity with anterior and posterior drawer test however exam somewhat limited due to pain. No laxity noted with varus or valgus stressing. General Extremety ED: Negative for edema General Extremity: Negative for edema Neuro oriented x3, CN's II-XII intact bilaterally, no sensory deficits noted and gait normal Sensorium / Orientation: awake, alert, oriented to person, oriented to place and oriented to time Motor Exam: strength 5/5 throughout and strength abnormal Psych mental status grossly normal Skin no rashes or lesions noted and no wounds MDM MDM MDM Narrative Medical decision making narrative: Patient presents with injury to her left knee. Recent surgery on the left knee 3 months ago. Concern for ACL injury. Will obtain x-rays of the left knee. X- rays of the knee obtained showed no acute fractures. Patient will be placed in a knee immobilizer. She does not want crutches as she has them at home. She does not want a thing for pain and will stick with ibuprofen and Tylenol. She is advised to use ice to the area. She will follow-up with her orthopedic surgeon at [facility]. I will have radiology make a disk for the images that she can take with her. Radiography Diagnostic Testing: Clinical Impression(s) from Imaging Studies Knee X-Ray 01/28/25 17:43 IMPRESSION: No acute abnormality. Postsurgical changes. Mild osteoarthrosis. Reading Location: [facility] 4 view x-rays of the left knee obtained interpreted by myself as no evidence of fracture dislocation. Noted postsurgical changes related to ACL repair. Radiology in agreement. Discharge Plan Triage Chief Complaint: Lower Extremity Injury ED Provider: Geraldo Cochran Dx/Rx/DC Orders Clinical Impression: Left knee sprain Instructions: ED Knee Sprain Ligaments Primary Care Provider: Care Physician,No Primary Referrals: Care Physician,No Primary [Primary Care Provider, Medical] Activity Restrictions/Additional Instructions: Follow-up with your orthopedic surgeon. X-rays today were unremarkable. May need further imaging to evaluate for ligamentous injury or meniscal injury and possibly even MRI as an outpatient. Print Language: British Disposition Disposition: Home, Self Care
--- OUTSIDE RECORDS SUMMARY | 2025-01-28 17:58 | XMS RPT_ITS | CCD ---
Author Organization [facility] Care Team Providers Care Informatica Developer Name Role Phone Uguccini DO, Mavis B Primary Care Provider Unavailable Primary Care Provider Unavailabl e [facility] Provider [facility] Care Provider Unavailable Primary Care Provider Unavailabl e Uguccini DO, Mavis Primary Care Provider UGUCCINI, MAVIS Primary Care Unavailable SABAS TRAN Referring Unavailable OPAL GOVEA Attending Unavailable UGUCCINI, MAVIS Primary Care Unavailable SABAS TRAN Referring Unavailable UGUCCINI, MAVIS Primary Care Unavailable SABAS TRAN Attending Unavailable OPAL GOVEA Referring Unavailable OPAL GOVEA Attending Unavailable UGUCCINI, MAVIS Primary Care Unavailable Uguccini DO, Mavis B Primary Care Provider [phone] ALEIDA GUNTER Attending Unavail able Uguccini DO, Mavis B Primary Care Provider [phone] UGUCCINI, MAVIS B Primary Care Unavailable REFERRED, SELF Referring Unavailable YURI KOENIG Attending Unavailable YURI KOENIG Attending Unavailable UGUCCINI, MAVIS B Referring Unavailable UGUCCINI, MAVIS B Primary Care Unavailable UGUCCINI, MAVIS B Primary Care Unavailable YURI KOENIG Referring Unavailable YURI KOENIG Attending Unavailable YURI KOENIG Admitting Unavailable UGUCCINI, MAVIS B Primary Care Unavailable YURI KOENIG Attending Unavailable UGUCCINI, MAVIS B Primary Care Unavailable LEONEL COWAN Attending Unavailable YURI KOENIG Referring Unavailable Allergies Allergy Classification Reported Allergen(s) Allergy Type Date of Onset Reaction(s) Facility (7 sources) Lactose; Translations: [LACTOSE] Drug Allergy 09-03-2021 Diarrhea [facility] [place] Work Phone: (3 sources) Lactose (non-medical use) Propensity to adverse reactions 09-03-2021 Diarrhea [facility] Medications Current Medications Medication Drug Class(es) Dates Sig (Normalized) Sig (Original) ascorbic acid 60 mg / cholecalciferol 0.01 mg / folic acid 0.3 mg / niacin 13.5 mg / riboflavin 1.2 mg / sodium fluoride 2.2 mg / thiamine 1.05 mg / vitamin a 0.75 mg / vitamin b12 0.0045 mg / vitamin b6 1.05 mg / vitamin e 15 unt chewable tablet (5 sources) Nicotinic Acid, Vitamin A, Vitamin B12, Vitamin D, Vitamin C Start: 03-27-2014 Pedi MVI No.17 with Fluoride (MULTI-VITAMIN WITH FLUORIDE) 1 mg chew Take one(1) tablet daily. 30 tablet 03/27/2014 Active Comment on above: Take one(1) tablet d aily. fexofenadine (8 sources) Histamine-1 Receptor Antagonist FEXOFENADINE HCL (GEORGE ALLERGY ORAL) Take by mouth. Active FEXOFENADINE HCL (GEORGE ALLERGY ORAL) Take by mouth. 0 Active fexofenadine (AL LEGRA) 180 MG tablet Take by mouth 0 Active Comment on above: Take by mouth. ibuprofen 600 mg oral tablet (12 sources) Nonsteroidal Anti-inflammatory Drug Start: 12-26-2023 End: 01-02-2024 take 1 tablet by mouth three times daily ibuprofen 800 MG tablet Take 1 tablet (800 mg) by mouth 3 times daily for 7 days. 21 tablet 12/26/2023 01/02/2024 Active Start: 12-26-2023 End: 12-26-2023 take 800 mg by mouth once 800 mg, Oral, Once, On Sun 1 02/24/23 at 0740, For 1 dose Start: 09-05-2021 End: 11-02-2024 take 1 tablet by mouth every six hours as needed for pain ibuprofen (MOTRIN) 600 MG tablet Take 1 Tablet (600 mg) by mouth every 6 hours as needed for Pain Take with meals. 30 Tablet 1 11/02/2024 Active ketorolac tromethamine 10 mg oral tablet (1 source) Nonsteroidal Anti-inflammatory Drug, Cyclooxygenase Inhibitor Start: 05-21-2021 End: 05-24-2021 take 1 tablet by mouth every six hours as needed for pain ketorolac (TORADOL) 10 MG tablet Take 1 Tablet (10 mg) by mouth every 6 hours as needed for Pain for up to 3 days 12 Tablet 0 05/21/2021 05/24/2021 Active Levonorgestrel (8 sources) Progestin, Progestin-containing Intrauterine Device levonorgestrel (Mirena) 20 MCG/DAY IUD 1 each by IntraUTERine route Once. Active Levonorgestrel ( MIRENA, 52 MG, IU) 52 mg by Intrauterine route continuous Active Levonorgestrel ( MIRENA, 52 MG, IU) 52 mg by Intrauterine route continuous 0 Active Completed/Discontinued Medications Medication Drug Class(es) Dates Sig (Normalized) Sig (Original) acetaminophen 500 mg oral tablet (3 sources) Start: 11-02-2024 End: 11-02-2024 1,000 mg (11.4 mg/kg/DOSE), Oral, ONCE, 1 dose, On Kelli 11/02/24 at 1000, Pre-op Start: 09-05-2021 End: 09-05-2021 acetaminophen (TYLENOL) tabl et 1,000 mg Start: 05-21-2021 End: 05-21-2021 acetaminophen (TYLENOL) tabl et 1,000 mg calcium chloride 0.0014 meq/ ml / potassium chloride 0.004 meq/ml / sodium chloride 0.103 meq/ml / sodium lactate 0.028 meq/ml injectable solution (3 sources) Start: 11-02-2024 End: 11-02-2024 CONTINUOUS, Intravenous, at 125 mL/hr, Starting on Kelli 11/02/24 at 1200, For 90 days, PACU Start: 09-05-2021 End: 09-05-2021 CONTINUOUS, Intravenous, at 60 mL/hr, Starting on Wed09/05/21 at 1630, For 90 days, PACU Start: 05-21-2021 End: 05-21-2021 CONTINUOUS, Intravenous, at 60 mL/hr, Starting on Wed05/21/21 at 1330, For 90 days, PACU bx rating 24 hr methylphenidate hydrochloride 36 mg extended release oral tablet (20 sources) Central Nervous System Stimulant Start: 08-13-2021 End: 09-05-2021 take 2 tablets by mouth once daily in the morning methylphenidate HCl 36 MG ER tablet Take 2 Tablets (72 mg) by mouth every morning 60 Tablet 0 08/13/2021 09/05/2021 Discontinued (Stop Taking (On AVS)) Start: 06-13-2021 End: 09-05-2021 take 1 tablet by mouth once daily in the morning methylphenidate HCl (CONCERTA) 72 MG TBCR ER tablet Take 1 Tablet (72 mg) by mouth every morning 30 Tablet 0 06/13/2021 09/05/2021 Discontinued (Stop Taking (On AVS)) Start: 01-10-2021 take 1 tablet by ailyn th once daily in the morning methylphenidate HCl (CONCERTA) 72 MG TBCR ER tablet Take 1 Tablet (72 mg) by mouth every morning 30 Tablet 0 01/10/2021 Active Start: 12-11-2020 End: 09-05-2021 take 2 tablets by mouth once methylphenidate (RITALIN) 20 MG tablet Take 2 Tabs (40mg) by mouth every afternoon for 30 days 60 Tablet 0 12/11/2020 09/05/2021 Discontinued (Stop Taking (On AVS)) Start: 01-27-2015 methylphenidat e (RITALIN) 20 mg tablet 1 1/2 tablet in afternoon 45 tablet 0 01/27/2015 Active Start: 11-28-2014 take 1 tablet by ailyn th once daily methylphenidate ER 54 mg CR tablet Take 1 tablet by mouth once daily. 30 tablet 0 01/27/2015 Active Comment on above: Take 1 tablet by ailyn th once daily. 1 1/2 tablet in afte rnoon Oxygen (2 sources) Start: 09-05-2021 End: 09-05-2021 See Flowsheet Row, PRN, Starting on Wed09/05/21 at 1623, Until Wed09/05/21 at 1737 Keep sats greater or equal to 95% Start: 05-21-2021 End: 05-21-2021 See Flowsheet Row, PRN, Star ting on Wed05/21/21 at 1258, Until Wed05/21/21 at 1606 Keep sats greater or equal to 95% Problems Active Problems Problem Classification Problem Date Documented Date Episodic/Chronic Attention-deficit, conduct, and disruptive behavior disorders (8 sources) Attention deficit hyperactivity disorder, combined type; Translations: [Attention-deficit hyperactivity disorder, combined type] Onset: 05-09-2010 05-31-2020 Chronic Attention-deficit, conduct, and disruptive behavior disorders (5 sources) Attention deficit hyperactivity disorder; Translations: [Attention-deficit hyperactivity disorder, unspecified type] Onset: 05-09-2010 05-09-2010 Chronic Open wounds of extremities (1 source) Laceration without foreign body of right thumb without damage to nail, initial encounter; Translations: [Laceration of right thumb without foreign body without damage to nail, initial encounter] Onset: 07-01-2024 Episodic Other bone disease and musculoskeletal deformities (5 sources) Calcaneal apophysitis; Translations: [Juvenile osteochondrosis of tarsus, unspecified ankle] Onset: 07-26-2013 07-26-2013 Chronic Other connective tissue disease (2 sources) Pain of left hand; Translations: [Pain in left hand] 05-19-2023 Episodic Other connective tissue disease (1 source) Pain in left hand; Translations: [Left hand pain] Onset: 05-19-2023 Episodic Other lower respiratory disease (2 sources) Hemoptysis; Translations: [Hemoptysis] Episodic Other non-traumatic joint disorders (4 sources) Arthropathy of knee joint; Translations: [Ankylosis, unspecified knee] Onset: 09-01-2021 Chronic Other non-traumatic joint disorders (2 sources) Arthrofibrosis of left knee; Translations: [Ankylosis, left knee] Chronic Other non-traumatic joint disorders (4 sources) Ankylosis, unspecified knee; Translations: [Ankylosis of joint, lower leg] Onset: 09-01-2021 09-01-2021 Chronic Other non-traumatic joint disorders (3 sources) Acute ankle pain; Translations: [Pain in right ankle and joints of right foot] 12-31-2023 Episodic Other non-traumatic joint disorders (2 sources) Pain in right ankle and joints of right foot; Translations: [Pain in right ankle and joints of right foot] Onset: 01-03-2024 Episodic Other non-traumatic joint disorders (7 sources) Pain in left knee; Translations: [Pain in left knee] Onset: 09-07-2024 11-09-2023 Episodic Other non-traumatic joint disorders (1 source) Pain in left knee; Translations: [Pain in joint, lower leg] 11-02-2024 Episodic Other upper respiratory infections (3 sources) Sore throat symptom; Translations: [Acute pharyngitis, unspecified] Episodic Spondylosis; intervertebral disc disorders; other back problems (1 source) Low back pain; Translations: [Low back pain] 02-21-2023 Episodic Unclassified (1 source) Not up to date with tetanus toxoid immunization; Translations: [Not up to date with tetanus toxoid immunization] Onset: 07-01-2024 Past or Other Problems Problem Classification Problem Date Documented Date Episodic/Chronic Contraceptive and procreative management (8 sources) Intrauterine contraceptive device in situ; Translations: [Presence of (intrauterine) contraceptive device] Onset: 12-13-2020 12-13-2020 Episodic Joint disorders and dislocations; trauma-related (9 sources) Laxity of ligament; Translations: [Other internal derangements of left knee] Onset: 05-14-2021 Resolved: 09-03-2021 Chronic Miscellaneous mental health disorders (8 sources) Mental disorder; Translations: [Mental disorder, not otherwise specified] Onset: 10-20-2019 Resolved: 10-26-2024 10-20-2019 Chronic Other nutritional; endocrine; and metabolic disorders (8 sources) Overweight in childhood; Translations: [Body mass index (BMI) pediatric, 85th percentile to less than 95th percentile for age] Resolved: 09-03-2021 12-15-2018 Episodic Other nutritional; endocrine; and metabolic disorders (7 sources) Childhood obesity; Translations: [Body mass index (BMI) pediatric, greater than or equal to 95th percentile for age] Onset: 09-03-2021 Resolved: 10-26-2024 09-03-2021 Episodic Sprains and strains (20 sources) Sprain of anterior cruciate ligament of knee; Translations: [Sprain of anterior cruciate ligament of left knee, initial encounter] Onset: 05-14-2021 Resolved: 09-03-2021 Episodic Unclassified (2 sources) Sprain of right ankle 12-26-2023 Viral infection (5 sources) Verruca vulgaris; Translations: [Viral wart, unspecified] Onset: 11-18-2010 11-18-2010 Episodic Results Test Name Value Interpretation Reference Range Facility Progress Noteon 11-24-2024 Plastering Supervisor Authentication Interface Message Text History of Present Illness Roderick Duncan is a 19-year-old female, status post left knee arthroscopy for plica removal and partial lateral meniscectomy, who presents for postoperative evaluation with new patellar tendon pain. She underwent left knee arthroscopy for plica removal, partial lateral meniscectomy, and soft tissue removal. She had been progressing well in physical therapy until the onset of new patellar tendon symptoms earlier this week. She describes a sensation of tightening in the patellar tendon, occasionally feeling as if it will sublux laterally, and notes a palpable bump in the area that feels as though it becomes stuck. She experiences diffuse knee pain. She denies numbness, paresthesia, or significant patellar instability, reporting only mild tenderness under the patella. She attends physical therapy twice weekly and is ambulatory, but continues to have difficulty with stairs and ambulation on inclines, particularly at [facility]. She is not participating in sports or strenuous activities and does not feel ready to return to work. She underwent dry needling of the patellar tendon at physical therapy, after which her symptoms worsened. She was not experiencing patellar tendon symptoms prior to this intervention and currently has residual tenderness and a gerardo at the site. She does not wish to pursue further dry needling. She previously used 800 mg ibuprofen postoperatively, which she has discontinued. She tolerated meloxicam prior to surgery without adverse effects but is not currently taking any anti-inflammatory medications. Physical EXAMINATION Physical Exam MUSCULOSKELETAL: Left knee flexion 140 degrees, lacks full extension. Left knee ligamentously intact. Pain over left knee, lateral joint line, and incision sites. Mild tenderness under left patella. Left kneecap stable with mild discomfort on manipulation. REsults Results ASSESSMENT and PLAN Assessment & Plan Left knee pain status post arthroscopic meniscectomy and plica removal She has new patellar tendon discomfort and diffuse knee pain following left knee arthroscopy with plica removal and partial lateral meniscectomy. Examination reveals ligamentous stability, localized patellar tendon tenderness, and no evidence of instability or acute complication. Symptoms are consistent with postoperative patellar tendinitis or irritation, likely exacerbated by recent dry needling. Prognosis is favorable with anti-inflammatory therapy and activity modification. - Prescribed Mobic (meloxicam) once daily, to be taken with food, with counseling regarding gastrointestinal side effects. - Advised avoidance of further dry needling of the patellar tendon due to symptom exacerbation. - Recommended continuation of physical therapy twice weekly with activity modification, specifically avoiding steep hills and strenuous activity; encouraged ambulation on flat or gently rolling surfaces. - Scheduled follow-up in one month to reassess symptoms and progress. Portions of this medical record have been created using voice recognition software and may have minor errors which are inherent in voice recognition systems. Normal [facility] POCT urine HCGOrdered By: Aren Abebe on 11-02-2024 Clear Background *Present [facility] Control Line *Present [facility] HCG ( test) Ql (U) Negative Negative [facility] Interpretation and review of laboratory results Normal [facility] Lot # [id number] [facility] Progress Noteon 09-07-2024 Plastering Supervisor Authentication Interface Message Text History of Present Illness Roderick Duncan is a 19 year old female with a history of ACL reconstruction and meniscectomy who presents with persistent left knee pain. She has a history of ACL reconstruction with quad tendon autograft and lateral medial meniscectomy performed in 2021. Approximately a year ago, an MRI revealed a Cyclops lesion. She was prescribed meloxicam, which did not significantly alleviate her symptoms. Currently, she experiences diffuse knee pain, primarily in the posterior lateral and anterior lateral regions. She has symptoms of 'walking and catching' and some instability. Her work involves a lot of bending and lifting, which may exacerbate her symptoms. She describes a sensation of 'catching or clicking' in the knee and feels as though 'the bones are moving'. She mentions a previous experience with significant pain post-surgery, where a nerve block did not work effectively, leading to severe pain and hallucinations. Physical EXAMINATION Physical Exam MUSCULOSKELETAL: No knee effusion. Tenderness on anterolateral, posterolateral, and medial joint lines of left knee. ACL and collateral ligaments stable. Patella stable. Pain on Priscilla's test. REsults Results RADIOLOGY Knee MRI: Cyclops lesion, significant anterior scar tissue to ACL, possible subpatellar osteophyte. ASSESSMENT and PLAN Assessment & Plan Left knee pain with mechanical symptoms post-ACL reconstruction and meniscectomy Chronic left knee pain with mechanical symptoms, including catching and clicking, following ACL reconstruction and meniscectomy in 2021. MRI shows significant scar tissue anterior to the ACL and a possible bone spur under the patella. Differential diagnosis includes meniscal issues, scar tissue causing mechanical symptoms, or a bone spur. ACL appears intact on examination. Symptoms are significant enough to consider surgical intervention. Risks of surgery include infection, arterial and nerve damage, though these are minimized by small incisions. Benefits include potential relief from mechanical symptoms. Discussed the use of Expiril for postoperative pain management due to previous issues with nerve blocks. - Perform knee arthroscopy to evaluate and address potential causes of mechanical symptoms. - Remove scar tissue if present and causing symptoms. - Trim any torn meniscus if identified during arthroscopy. - Smooth out any bone spurs if identified during arthroscopy. - Advise use of crutches for approximately one week post-procedure, with weight-bearing as tolerated to minimize swelling. - Provide light duty note for work post-procedure. - Discuss potential use of Expiril for postoperative pain management, given previous issues with nerve blocks. History of left ACL reconstruction and meniscectomy Previous ACL reconstruction with quad tendon autograft and lateral medial meniscectomy performed in 2021. Current symptoms are not attributed to ACL failure as it appears intact on examination. Portions of this medical record have been created using voice recognition software and may have minor errors which are inherent in voice recognition systems. Normal [facility] [place] ED PROV NOTEon 07-01-2024 ED PROV NOTE HNO ID: [id number] Author: ALEIDA GUNTER DO Service: Emergency Medicine Author Type: Physician Type: ED Provider Notes Filed: 07/01/2024 03:00 Note Text: ED Provider Note Patient Name: Roderick Duncan : 2005 SERVICE DATE: 07/01/24 History Patient presents with: Laceration HPI Patient is a 18-year-old female complaining of laceration to the right thumb that happened at 4 AM while at work. 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 Patient washed her wound out, tried to glue it together with New Skin at home, however the wound kept opening and is still oozing. She figured she might need sutures, so came in here for evaluation. She denies redness or swelling, numbness, paresthesias, foreign body or other complaints. Tetanus is not up-to-date. PAST MEDICAL HISTORY Diagnosis Date NEGATIVE MEDICAL HISTORY normal color vision Post traumatic stress disorder Wrist fracture, right 07/2012 cast--fell from horse PAST SURGICAL HISTORY Procedure Laterality Date NONE FAMILY HISTORY Problem Relation Age of Onset other (multiple sclerosis [Other]) Mother Alcohol/Drug Mother Social History Tobacco Use Smoking status: Never Smokeless tobacco: Never Substance and Sexual Activity Alcohol use: Not on file Drug use: Not on file Sexual activity: Not on file ALLERGIES No Known Allergies Review of Systems Constitutional: Negative for chills and fever. HENT: Negative for congestion, ear pain, nosebleeds, sore throat, trouble swallowing and voice change. Eyes: Negative for pain, redness and visual disturbance. Respiratory: Negative for cough and shortness of breath. Cardiovascular: Negative for chest pain and palpitations. Gastrointestinal: Negative for abdominal distention, abdominal pain, diarrhea, nausea and vomiting. Genitourinary: Negative for dysuria and hematuria. Musculoskeletal: Negative for back pain and neck pain. Skin: Positive for wound. Negative for rash. Neurological: Negative for syncope, weakness, numbness and headaches. Hematological: Does not bruise/bleed easily. All other systems reviewed and are negative. Physical Exam Vitals [07/01/24 0137] BP Pulse Temp Temp src Resp SpO2 Weight Height 139/96 90 36.2 ?C (97.2 ?F) -- 14 98 % 88.5 kg (195 lb) 1.549 m (5' 1) Physical Exam Vitals and nursing note reviewed. Constitutional: General: She is not in acute distress. Appearance: Normal appearance. She is not ill-appearing or toxic-appearing. HENT: Head: Normocephalic and atraumatic. Mouth/Throat: Mouth: Mucous membranes are moist. Neck: Vascular: No JVD. Trachea: No tracheal deviation. Musculoskeletal: General: No deformity. Normal range of motion. Cervical back: Normal range of motion. Right lower leg: No edema. Left lower leg: No edema. Skin: General: Skin is warm and dry. Capillary Refill: Capillary refill takes less than 2 seconds. Findings: No bruising, erythema or rash. Comments: There is a 2.5 cm C-shaped laceration to the right thumb pad to the subcutaneous tissue with mild active bleeding. No neurovascular involvement, no evidence of foreign body. Patient has full ROM Neurological: General: No focal deficit present. Mental Status: She is alert and oriented to person, place, and time. Sensory: No sensory deficit. Motor: No weakness. Diagnostic Testing ED Labs Ordered and Reviewed - No data to display LAC REPAIR Date/Time: 07/01/2024 1:56 AM Performed by: Aleida Gunter DO Authorized by: Aleida Gunter DO Risks discussed: Infection, pain, need for additional repair, poor cosmetic result, nerve damage, vascular damage, poor wound healing, tendon damage and retained foreign body Alternatives discussed: Delayed treatment, no treatment and observation Anesthesia (see MAR for exact dosages): Anesthesia method: Nerve block Block location: Right thumb Block needle gauge: 30 G Block anesthetic: Lidocaine 1% w/o epi Block technique: Digital Block injection procedure: Anatomic landmarks identified, introduced needle, incremental injection, anatomic landmarks palpated and negative aspiration for blood Block outcome: Anesthesia achieved Laceration details: Location: Finger Finger location: R thumb Length (cm): 2.5 Depth (mm): 3 Repair type: Repair type: Simple Pre-procedure details: Preparation: Patient was prepped and draped in usual sterile fashion Exploration: Hemostasis achieved with: Direct pressure Wound exploration: wound explored through full range of motion and entire depth of wound probed and visualized Wound extent: areolar tissue not violated, fascia not violated, no foreign body, no signs of injury, no nerve damage, no tendon damage, no underlying fracture and no vascular damage Contaminated: no Treatment: Area cleansed with: Hibiclens and saline Amount of ayanna (more content not included)... Normal [facility] 37on 01-03-2024 37 Continue to elevate, jose wrap and do the alphabet range of motion exercises until you can ambulate without pain. Wear the ankle brace in and out of the house for the next 4-6 weeks as needed for comfort. Progress to the strengthening and balancing exercises as soon as you can (ankle handout). Discussed at length the return to play and the progression from walk to jog, run, sprint, cut before full return to sport. Continue to wear the brace, or tape for support for the next 4-8 weeks for your sport or strenuous activities. Ankle Sprain: Rehab Exercises EARLY Alphabet exercise Trace the alphabet with your toe, make the letters as large as tolerated. This helps your ankle move in all directions. Do this exercise several times a day. MIDDLE Towel curl While sitting, place your foot on a towel on the floor. Scrunch the towel toward you with your toes. Then use your toes to push the towel away from you. To make this exercise more challenging you can put something on the other end of the towel. A can of soup is about the right weight for this. Ankle strengthening exercise all 4 directions Use a band or another object for resistance. Use a fixed object or tie the ends of an exercise band together to form a loop. Attach one end of the loop to a secure object or shut a door on it to hold it in place. While sitting on the floor or in a chair, loop the other end of the band over the top of your affected foot. Keeping your knee and leg straight, slowly flex your foot to pull back, pull to inside, pull to the outside on the exercise band, and then slowly relax. Remember band work is always slow in both directions. Repeat 8 to 12 times. LATE (the most important) Single-leg balance Stand on a flat surface with your arms stretched out to your sides like you are making the letter T. Then lift your good leg off the floor, bending it at the knee. If you are not steady on your feet, use one hand to hold on to a chair, counter, or wall. Standing on the leg with your affected ankle, keep that knee straight. Try to balance on that leg for up to 60 seconds. Then rest for up to 10 seconds. Repeat several times. When you can balance on your affected leg for 60 seconds with your eyes open, try to balance on it with your eyes closed. When you can do this exercise with your eyes closed for 60 seconds and with ease and no pain, try standing on a pillow or piece of foam, and repeat steps 1 through Once you can stand on the flat floor for 60 seconds consistently he will likely not need to wear the ankle brace for day-to-day activities When you can stand on the unstable surface for 60 seconds consistently he will likely not need to wear the ankle brace for athletic and high stress activities. As you return to sport you will progress through the steps of walking, jogging, running, sprinting, and cutting. When you are able to do all of those things you can return to sport with an ankle brace. When you have complete and full balance and strength you no longer have to wear the brace for protection from another ankle sprain. [facility] Office Visiton 01-03-2024 Follow-up visit [id number] Roderick Duncan 2005 F Date Provider Department Center 01/03/2024 [id number] GOVEA [facility] None No family history on file Level of Service:91798 [place] OFFICE/OUTPATIENT NEW LOW MDM 30 MINUTES Reason for Visit and Comments: New Patient [542] Ankle Pain [137329] - right [facility] Progress Noteon 01-03-2024 Progress Note [facility] [address] [place] [address] [place] [address] Dept: [phone] Dept Chief Complaint Patient presents with New Patient Ankle Pain right Subjective History of Present Illness: Roderick Duncan is a 18 y.o. female who presents today for evaluation of right ankle pain. Location: lateral and medial Onset: 1 week Injury: yes - she tripped down stairs. Work related? no Quality: throbbing and sharp Mechanical symptoms: popping, crepitus, grinding, catching, and locking Radiation of symptoms: yes - into the top of her foot Severity: 3/10 at rest and 8/10 at worst Exacerbating factor(s): walking, prolonged standing, climbing/descending stairs, and walking without the boot Relieving factor(s): boot and elevation Timing: all day Imaging to date: X-ray December 2023 Treatment to date: PT/OT/HEP: no Ice: yes, helpful Heat: yes, helpful Medications: Tylenol: no NSAIDs: no Oral steroids: no Muscle relaxants: no Nerve medications: no Targeted injections: none Assistive devices: none Prior surgery: no 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 Respiratory: Breathing comfortably on room air. No respiratory distress. Skin: Warm, dry, intact. No visible rashes or erythema overlying area of focused exam. Physical Exam Musculoskeletal: Right ankle: Swelling present. No deformity or ecchymosis. Tenderness present over the lateral malleolus and ATF ligament. No medial malleolus, base of 5th metatarsal or proximal fibula tenderness. Decreased range of motion. External Notes No pertinent interval updates Labs No results found for: HGBA1C No results found for: CREATININE Imaging Images reviewed with patient today I have personally reviewed the images pertinent to the appointment today EMG/NCT No interval studies Procedure No procedures completed today Assessment Diagnosis Plan 1. Acute right ankle pain XR ankle 3+ views right 2. Sprain of right ankle, initial encounter [facility] Sports Medicine Plan -Discussed with the patient the nature of ankle sprains. -Discussed ankle imaging results with patient. -Discussed treatment modalities including RICE, WBAT, protection from repeat injury, PT/rehab. -Wear walking boot until ankle to ambulate virtually pain-free then transition into the lace up ankle brace. -Provided lace-up ankle brace to be worn during sports or aggressive activities until able to balance on an unstable surface consistently for 60 seconds. -RTP allowable when has full ROM, strength, proprioception vs contralateral side and can run & cut full speed. -Questions answered. -Written patient information provided in the AVS. -Will prescribe home exercise program starting with ABCs and culminating in unstable proprioception exercises. No follow-ups on file. Opal Govea MD 01/03/2024 9:16 AM Please note that portions of this note may have been completed with voice recognition software. Documentation reviewed prior to signing but minor errors in retail assistant manager may have occurred. [facility] XR Ankle - right 3 Viewson 1 03-04-2023 Mild soft tissue swelling. No acute fracture. Report Dictated on Electronically Signed By: Stella Nicole MD Electronically Signed Date/Time: 01/03/2024 11:02 AM [facility] Patient Name: RODERICK DUNCAN : 2005 Exam Date/Time: 01/03/2024 09:00 Procedure: XR ANKLE 3+ VIEWS RIGHT Ordering Provider: GOVEA ROBERT Reason For Exam: PAIN RIGHT ANKLE History: Ankle pain, swelling, injury Findings: Three views show mild soft tissue swelling without fracture, dislocation, bone erosion or periosteal reaction. The talotibial joint space is maintained. [facility] Stella Nicole MD - 01/03/2024 [facility] Name[facility]UNCAN : 2005 [id number] Exam Date/Time: 01/03/2024 09:00 Procedure: XR ANKLE 3+ VIEWS RIGHT Ordering Provider: GOVEA ROBERT Reason For Exam: PAIN RIGHT ANKLE History: Ankle pain, swelling, injury Findings: Three views show mild soft tissue swelling without fracture, dislocation, bone erosion or periosteal reaction. The talotibial joint space is maintained. IMPRESSION: Mild soft tissue swelling. No acute fracture. Report Dictated on Electronically Signed By: Stella Nicole MD Electronically Signed Date/Time: 01/03/2024 11:02 AM EST [facility] [employer] Radiology Study observation (narrative) [facility] 3 ViewsOrde red By: Stella Nicole on 01-03-2024 [facility] Work Phone: ED Nursing Noteon 12-26-2023 ED Nursing Note Patient to room 7 wi th c/o right ankle pain. Patient was walking down steps and her ankle twisted this morning. V/S obtained, call light within reach. [facility] ED Provider Noteon ED Provider Note EMERGENCY DEPARTMENT ENCOUNTER Pt Name: Roderick Duncan Birthdate 2005 Date of evaluation: 12/26/2023 ED Provider: Sabas Tran MD CHIEF COMPLAINT Chief Complaint Patient presents with Ankle Pain HISTORY OF PRESENT ILLNESS (Location/Symptom, Timing/Onset, Context/Setting, Quality, Duration, Modifying Factors, Severity) Note limiting factors. I wore appropriate PPE for the entirety of this encounter. HPI Roderick Duncan is a 18 y.o. female who presents to the emergency department with chief complaint of right ankle pain. Patient states she was walking earlier this morning and slipped and inverted her right ankle and suffered severe pain in the lateral aspect of her right ankle. Hurts to weight-bear. Complains of moderate swelling on the lateral malleolus. Denies knee pain. Denies numbness or tingling. Denies other injuries or other complaints Nursing Notes were reviewed. Limitations to history: None Outside historians: EMS REVIEW OF SYSTEMS Review of Systems: Pertinent positives as above per history of present illness. Other systems reviewed and found to be negative to a total of 6 systems reviewed. PAST MEDICAL HISTORY History reviewed. No pertinent past medical history. SURGICAL HISTORY History reviewed. No pertinent surgical history. CURRENT MEDICATIONS Previous Medications No medications on file ALLERGIES Patient has no known allergies. FAMILY HISTORY No family history on file. SOCIAL HISTORY Social History Socioeconomic History Marital status: Single Tobacco Use Smoking status: Never Smokeless tobacco: Never Vaping Use Vaping status: Never Used Substance and Sexual Activity Drug use: Never SCREENINGS PHYSICAL EXAM ED Triage Vitals [12/26/23 0722] Temp Heart Rate Resp BP 36.7 ?C (98 ?F) 80 16 133/80 SpO2 Temp Source Heart Rate Source Patient Position 100 % Oral Monitor -- BP Location FiO2 (%) -- -- Physical Exam: Vital signs reviewed in nurse's notes. Patient is nontoxic in appearance. No respiratory distress. Head: Normocephalic, atraumatic Eyes: Pupils are equal, round and reactive to light. ENT: Mucous membranes moist. Neck: No tenderness or stiffness. Lungs: Clear to auscultation bilaterally. No wheezing rales or rhonchi. Heart: Regular rate and rhythm. No audible murmur or gallop. Extremities: No gross deformity. Patient has tenderness and swelling over the lateral malleolus of the right ankle. No medial malleolus tenderness. No foot or fifth metatarsal tenderness. The Achilles tendon is intact. Delvalle test is negative for Achilles tendon rupture. No near fibular head tenderness. No obvious joint swelling otherwise. No calf tenderness. Good distal pulses in bilateral lower extremities. Neurologic: Alert and fully oriented. No focal motor, sensory deficits in bilateral lower extremities. DIAGNOSTIC RESULTS RADIOLOGY (Per Emergency Physician): Right ankle x-ray shows no fracture or dislocation. Interpreted by this examiner. Interpretation per the Radiologist below, if available at the time of this note: XR ankle 3+ views right Final Result Soft tissue swelling without an acute osseous abnormality identified. Report Dictated on Electronically Signed By: Emiliano Aldnaa MD Electronically Signed Date/Time: 12/26/2023 7:51 AM EST EMERGENCY DEPARTMENT COURSE and DIFFERENTIAL DIAGNOSIS/MDM: Vitals: Vitals: 12/26/23 0722 BP: 133/80 Pulse: 80 Resp: 16 Temp: 36.7 ?C (98 ?F) TempSrc: Oral SpO2: 100% Weight: 86.2 kg (190 lb) Height: 1.549 m (5' 1) Patient is soft tissue swelling consistent with ankle sprain and no obvious bony fracture. I do feel she can follow-up as an outpatient. Recommend rest ice elevation anti-inflammatory medicine. She is given a walking boot. She is given referral to sports medicine. There is no signs of acute vascular insufficiency. The patient presented with chief complaint of ankle injury. The differential diagnosis associated with this patient's presentation includes ankle sprain, ankle fracture, Achilles tendon injury, foot fracture. Our workup consisted of ordering/reviewing: X-ray right ankle. To aid in management, I performed an independent interpretation of Xray(s) x-ray right ankle as above. The patient will be Discharged. Patient is in agreement with this plan. Medications ibuprofen tablet 800 mg (800 mg Oral Given 12/26/23 0748) REVAL: I personally supervised and inspected the orthotic boot placed by nursing staff. The extremity is appropriately immobilized. On my exam, the patient is neurovascularly intact both before and after the application. PROCEDURES: Unless otherwise noted below, none Procedures Patients symptoms are consistent with sepsis, severe sepsis, or septic shock (If yes use .sepsiscoremeasure): no FINAL IMPRESSION 1. Sprain of right ankle, initial enc (more content not included)... [facility] XR Ankle - right 3 Viewson 1 02-24-2023 Soft tissue swelling without an acute osseous abnormality identified. Report Dictated on Electronically Signed By: Emiliano Aldana MD Electronically Signed Date/Time: 12/26/2023 7:51 AM [facility] [employer] RADI[facility]Y [facility] Patient Name: RODERICK DUNCAN : 2005 [id number] Exam Date/Time: 12/26/2023 07:33 Procedure: XR ANKLE 3+ VIEWS RIGHT Ordering Provider: TRAN KEVIN Reason For Exam: Ankle trauma, no prior imaging (Age >= 5y) EXAMINATION: XR right ankle. EXAM DATE & TIME: 12/26/2023 7:33 AM EST INDICATION: Ankle trauma, no prior imaging (Age >= 5y) ADDITIONAL INFORMATION: 18-year-old female with right ankle trauma presents for evaluation COMPARISON: None TECHNIQUE: AP, lateral and oblique views of the right ankle were obtained. FINDINGS: No acute fracture or traumatic dislocation is identified. The bones are well-mineralized and the joint spaces are satisfactorily maintained, including the ankle mortise. Soft tissue swelling surrounds the lateral malleolus. No radiopaque foreign body. [facility] Emiliano Aldana MD - 12/26/2023 Patient Name: RODERICK DUNCAN : 2005 [id number] Exam Date/Time: 12/26/2023 07:33 Procedure: XR ANKLE 3+ VIEWS RIGHT Ordering Provider: TRAN KEVIN Reason For Exam: Ankle trauma, no prior imaging (Age >= 5y) EXAMINATION: XR right ankle. EXAM DATE & TIME: 12/26/2023 7:33 AM EST INDICATION: Ankle trauma, no prior imaging (Age >= 5y) ADDITIONAL INFORMATION: 18-year-old female with right ankle trauma presents for evaluation COMPARISON: None TECHNIQUE: AP, lateral and oblique views of the right ankle were obtained. FINDINGS: No acute fracture or traumatic dislocation is identified. The bones are well-mineralized and the joint spaces are satisfactorily maintained, including the ankle mortise. Soft tissue swelling surrounds the lateral malleolus. No radiopaque foreign body. IMPRESSION: Soft tissue swelling without an acute osseous abnormality identified. Report Dictated on Electronically Signed By: Emiliano Aldana MD Electronically Signed Date/Time: 12/26/2023 7:51 AM EST [facility] [employer] Radiology Study observation (narrative) [facility] XR Ankle - right 3 ViewsOrde red By: Emiliano Aldana on 12-26-2023 [facility] Work Phone: MR Knee - left WO contraston 11-09-2023 IMPRESSION: 1. Possible disruption of a few anterior ACL graft fibers. Most of the ACL graft remains intact with some intermediate signal. 2. 2.3 cm cyclops lesion extending anteriorly from the ACL graft. 3. Intermediate signal within the lateral meniscus anterior horn near the meniscal root raising the possibility of an anterior horn meniscal injury. 4. Changes of the medial meniscus body and posterior horn are likely related to the previous meniscal tear with postoperative changes. 5. Small to moderate knee joint effusion. 6. Prominent medial plica synovial fold without edema. This report has been created using voice recognition software [facility] CLINICAL HISTORY: Evaluate for internal derangement TECHNIQUE: MRI of the left knee was performed at 3.0 Fela without intravenous contrast. COMPARISON: 05/08/2021 outside facility left knee MRI FINDINGS: BONES: Postoperative changes of the distal femur and proximal tibia related to prior ACL reconstruction. Taking artifact related to surgical hardware into account, no definite acute marrow edema or distinct fracture identified. ARTICULAR CARTILAGE: Normal. ACL: ACL reconstruction graft seen. There is some thickening and intermediate signal within the graft in the intercondylar notch region. There appears to be disruption of a few graft fibers at the tibial plateau level with an adjacent cyclops lesion anteriorly. Most of the graft fibers appear to be intact. PCL: Intact. MCL: Intact. LCL: Intact. MENISCI: Lateral meniscus: Intermediate internal signal in the anterior horn just proximal to the anterior meniscal root. Medial meniscus: Some irregularity and scattered internal signal in the body and posterior horn, likely reflecting previously seen meniscal tear and/or postoperative changes. EXTENSOR TENDONS: Intact. MPFL: Intact. PATELLOFEMORAL ALIGNMENT: Normal. JOINT SPACE: Small to moderate knee joint effusion. Prominent medial plica synovial fold with some edema. There is a globular soft tissue lesion consistent with anterior arthrofibrosis (cyclops lesion) extending in the intercondylar notch anteriorly from the ACL graft. This measures 2.3 x 2.0 x 0.9 cm and has heterogeneous intermediate to increased T2 signal. SURROUNDING SOFT TISSUES: Postoperative changes noted. No edematous signal in the visualized muscular structures or subcutaneous fat. Appearance of muscular and subcutaneous soft tissues. [facility] Jose Antonio Rodriguez MD - 11/09/2023 CLINICAL HISTORY: Evaluate for internal derangement TECHNIQUE: MRI of the left knee was performed at 3.0 Fela without intravenous contrast. COMPARISON: 05/08/2021 outside facility left knee MRI FINDINGS: BONES: Postoperative changes of the distal femur and proximal tibia related to prior ACL reconstruction. Taking artifact related to surgical hardware into account, no definite acute marrow edema or distinct fracture identified. ARTICULAR CARTILAGE: Normal. ACL: ACL reconstruction graft seen. There is some thickening and intermediate signal within the graft in the intercondylar notch region. There appears to be disruption of a few graft fibers at the tibial plateau level with an adjacent cyclops lesion anteriorly. Most of the graft fibers appear to be intact. PCL: Intact. MCL: Intact. LCL: Intact. MENISCI: Lateral meniscus: Intermediate internal signal in the anterior horn just proximal to the anterior meniscal root. Medial meniscus: Some irregularity and scattered internal signal in the body and posterior horn, likely reflecting previously seen meniscal tear and/or postoperative changes. EXTENSOR TENDONS: Intact. MPFL: Intact. PATELLOFEMORAL ALIGNMENT: Normal. JOINT SPACE: Small to moderate knee joint effusion. Prominent medial plica synovial fold with some edema. There is a globular soft tissue lesion consistent with anterior arthrofibrosis (cyclops lesion) extending in the intercondylar notch anteriorly from the ACL graft. This measures 2.3 x 2.0 x 0.9 cm and has heterogeneous intermediate to increased T2 signal. SURROUNDING SOFT TISSUES: Postoperative changes noted. No edematous signal in the visualized muscular structures or subcutaneous fat. Appearance of muscular and subcutaneous soft tissues. IMPRESSION: 1. Possible disruption of a few anterior ACL graft fibers. Most of the ACL graft remains intact with some intermediate signal. 2. 2.3 cm cyclops lesion extending anteriorly from the ACL graft. 3. Intermediate signal within the lateral meniscus anterior horn near the meniscal root raising the possibility of an anterior horn meniscal injury. 4. Changes of the medial meniscus body and posterior horn are likely related to the previous meniscal tear with postoperative changes. 5. Small to moderate knee joint effusion. 6. Prominent medial plica synovial fold without edema. This report has been created using voice recognition software [facility] MR Knee - left WO contrastOr dered By: Jose Antonio Rodriguez on 11-09-2023 [facility] Work Phone: MR Knee - left WO contraston 11-08-2023 Radiology Study observation (narrative) [facility] XR Knee - left GE 4 Viewson 10-26-2023 IMPRESSION: 1. ACL graft in place 2. No acute osseous abnormality. This report has been created using voice recognition software [facility] Jordno Mendoza MD - 10/26/2023 PROCEDURE: KNEE 4 OR MORE VIEWS LEFT CLINICAL HISTORY: Left knee pain COMPARISON: None. FINDINGS: Normal alignment. ACL graft is in place. There is no soft tissue swelling or joint effusion. The osseous structures appear normal. Patella appears normal on the axial view. IMPRESSION: 1. ACL graft in place 2. No acute osseous abnormality. This report has been created using voice recognition software [facility] Radiology Study observation (narrative) [facility] XR Knee - left GE 4 ViewsOrd ered By: Jordon Mendoza on 10-26-2023 [facility] Work Phone: CNOVon 07-18-2023 CNOV Office Visit (UCWSTR ) RODERICK DUNCAN ([id number]) 1 F Date Time Provider Department 07/18/23 9:00 AM WENDY PENDLETON [facility] During your visit today, we recorded the following information about you: Temperature Pulse Respiration Blood pressure 97.2 degrees 74/minute 16/minute 118/66 Weight 90.5 kg Wendy Pendleton PA-C 07/18/2023 9:00 AM Addendum Flonase Continue Mucinex May add ibuprofen and throat lozenges(Cepacol of Chloraseptic) If you develop a fever, or not feeling better after 7-10 days of symptoms be seen again. Wendy Pendleton PA-C 07/18/2023 9:05 AM Signed This note was created using [employer]. Subjective Roderick Duncan is a 17 year old female. HPI Patient presents with a chief complaint of bilateral ear pain, cough, sore throat over the past 4 days. She states she is coughing more because her throat hurts and is dry. She has had some mild shortness of breath. She denies history of asthma. No fever. No vomiting or diarrhea. She denies body aches or chills. She has been using Mucinex [id number]. Her mom was sick with similar symptoms recently. Review of Systems Constitutional: Positive for fatigue. Negative for fever. HENT: Positive for congestion, ear pain, rhinorrhea and sore throat. Negative for ear discharge. Respiratory: Positive for cough and shortness of breath. Negative for wheezing. Cardiovascular: Negative. Gastrointestinal: Negative. Genitourinary: Negative. [...] daily. (Patient not taking: Reported on 01/26/2023) 30 tablet 0 methylphenidate ER 54 mg CR tablet Take 1 tablet by mouth once daily. (Patient not taking: Reported on 01/26/2023) 30 tablet 0 Pedi MVI No.17 with [...] status: Never Smokeless tobacco: Never Objective BP 118/66 Pulse 74 Temp 36.2 ?C (97.2 ?F) Resp 16 Wt 90.5 kg (199 lb 8.3 oz) LMP 01/26/2023 SpO2 97% BMI 37.70 kg/m? Physical Exam Vitals reviewed. Constitutional: Appearance: Normal appearance. HENT: Head: Normocephalic and atraumatic. Right Ear: Tympanic membrane, ear canal and external ear normal. Left Ear: Tympanic membrane, ear canal and external ear normal. Nose: Congestion present. Mouth/Throat: Mouth: Mucous membranes are moist. Pharynx: Posterior oropharyngeal erythema present. No pharyngeal swelling, oropharyngeal exudate or uvula swelling. Tonsils: No tonsillar exudate or tonsillar abscesses. Cardiovascular: Rate and Rhythm: Normal rate and regular rhythm. Heart sounds: Normal heart sounds. Pulmonary: Effort: Pulmonary effort is normal. Breath sounds: Normal breath sounds. Musculoskeletal: Cervical back: Neck supple. Lymphadenopathy: Cervical: No cervical adenopathy. Skin: General: Skin is warm and dry. Findings: No rash. Neurological: General: No focal deficit present. Mental Status: She is alert and oriented to person, place, and time. Assessment and Plan ASSESSMENT/PLAN: 1. Acute URI - ICD9: 465.9, ICD10: J06.9 - Discussed viral etiology and rationale for treatment. - Group A strep molecular testing negative - Symptomatic treatment with prn analgesia - Supportive care with fluids and rest - The patient may also use OTC cough and cold meds as needed and warm salt water gargles, throat lozenges and/or OTC throat spray as needed. - Follow up in 3-5 days if symptoms persist or sooner if worsening of symptoms - STREP A MOLECULAR (POC) Wendy Pendleton PA-C Allergies As of Date: 07/18/2023 (No Known Allergies) Date Reviewed: 07/18/2023 Reviewed by: Lori Banuelos - Fully Assessed Reason for Visit: Cough [28] Cmt: SOB, sore throat and VERNON ear pain x4 days Primary Visit Diagnosis:Acute URI [J06.9] Order(s):STREP A MOLECULAR (POC) [9014053] Order #: [id number] (more content not included)... Normal [facility] STREP A MOLECULAR (POC)on Procedural Control Valid [facility] Strep A (POCT) Negative Negative [facility] CNOVon 05-19-2023 CNOV Office Visit (UCWSTR ) RODERICK DUNCAN ([id number]) 1 F Date Time Provider Department 05/19/23 2:00 PM JEFFRY BERNARD [facility] During your visit today, we recorded the following information about you: Temperature Pulse Respiration Blood pressure 97.1 degrees 72/minute 16/minute 118/66 Weight 88.6 kg Jeffry Bernard PA 05/19/2023 2:40 PM Signed This note was created using [facility]. Subjective Roderick Duncan is a 17 year old female. HPI 17-year-old female presents for left wrist/hand pain. 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 She states that she constantly does a twisting motion of her hands while at work. She states that on Wednesday she was putting a park together and felt some increased pain in her left wrist and thumb. She points to her left thumb area and left radial wrist. She states that the back of her hand also hurts. Pain worse with movement. No numbness or tingling in the fingers. She denies ever injuring this hand or wrist in the past. She is right-hand dominant. PAST MEDICAL HISTORY Diagnosis Date NEGATIVE MEDICAL HISTORY normal color vision Post traumatic stress disorder Wrist fracture, right 07/2012 cast--fell from horse PAST SURGICAL HISTORY Procedure Laterality Date NONE ALLERGIES Patient has no known allergies. MEDICATIONS methylphenidate (RITALIN) 20 mg tablet 1 1/2 [...] Use Smoking status: Never Smokeless tobacco: Never Review of Systems Constitutional: Negative for chills and fever. HENT: Negative for congestion, ear pain and sore throat. Respiratory: Negative for cough and shortness of breath. Cardiovascular: Negative for chest pain. Gastrointestinal: Negative for diarrhea and vomiting. Musculoskeletal: Positive for arthralgias. Objective BP 118/66 Pulse 72 Temp 36.2 ?C (97.1 ?F) Resp 16 Wt 88.6 kg (195 lb 5.2 oz) LMP 01/26/2023 SpO2 98% BMI 36.91 kg/m? Physical Exam Vitals and nursing note reviewed. Constitutional: General: She is not in acute distress. Appearance: Normal appearance. She is not toxic-appearing. Musculoskeletal: Left wrist: Tenderness and bony tenderness present. No swelling, deformity, snuff box tenderness or crepitus. Normal pulse. Left hand: Tenderness and bony tenderness present. No swelling or deformity. Normal range of motion. Normal sensation. There is no disruption of two-point discrimination. Normal capillary refill. Normal pulse. Comments: Patient has tenderness over left dorsal hand and left thumb. She has some mild left radial wrist tenderness. Positive Cody's test. No snuffbox tenderness. Normal sensation all digits left hand. 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 Radial pulse 2+. Cap refill less than 2 seconds. Skin: General: Skin is warm and dry. Neurological: Mental Status: She is alert. Sensory: No sensory deficit. Assessment and Plan ASSESSMENT/PLAN: 1. Left hand pain - ICD9: 729.5, ICD10: M79.642 - XR HAND GENERAL 3V PA/LAT/OBL LEFT - XR WRIST INJURY 4V PA/LAT/OBL/SCAPH LEFT -XR revealed no acute abnormality. -Suspect possible tendinitis from overuse. Recommend rest, ice. -Tylenol/Motrin as needed for pain. -Follow-up with occupational health/Worker's Comp. physician. Diagnosis and treatment plan were discussed and questions were answered to the patient's satisfaction. Pt acknowledged understanding of concepts and follow up plan. Specific signs and symptoms that would indicate the need for higher level of care were discussed in detail warranting prompt ER evaluation. LENORA Santiago Krislyn P, PA 05/19/2023 2:38 PM Signed R.I.C.E. The general care of your injury includes the following: Resting, Icing, Compressing and Elevating the injured area. Remember this as RICE. REST: Limit the use of the injured body part. ICE: By applying ice to the affected area, swelling and pain can be reduced. Place some ice cubes in a re-sealable (Ziploc) bag and add some water. Put a thin washcloth between the bag and your skin. Apply the ice bag to t (more content not included)... Normal [facility] No Panel Informationon 05-18 Radiology Study observation (narrative) [facility] XR HAND 3V PA/LAT/OBL LTon 0 05-19-2023 XR HAND 3V PA/LAT/OBL LT * * *Final Report* * * DATE OF EXAM: May 19 2023 2:31PM WOX [id number] - XR HAND 3V PA/LAT/OBL LT / PROCEDURE REASON: Left hand pain * * * * Physician Interpretation * * * * TITLE: XR HAND 3V PA/LAT/OBL LT CLINICAL INDICATION: Pain TECHNIQUE: 3 view radiographic study of the left hand COMPARISON: None FINDINGS: No acute fracture or dislocation identified. Joint spaces preserved IMPRESSION: No radiographic evidence of acute osseous injury Truck Shop Supervisor: KRIS Transcribe Date/Time: May 19 2023 2:33P Dictated by : OWEN RANKIN MD This examination was interpreted and the report reviewed and electronically signed by: OWEN RANKIN MD on May 19 2023 2:34PM EST [id number] Normal [facility] XR Hand - left PA and Latera l and Obliqueon 05-19-2023 IMPRESSION: No radiographic evidence of acute osseous injury Truck Shop Supervisor: PSCB Transcribe Date/Time: May 19 2023 2:33P Dictated by : OWEN RANKIN MD This examination was interpreted and the report reviewed and electronically signed by: OWEN RANKIN MD on May 19 2023 2:34PM [facility] DIVISION OF RADIOLOGY * * *Final Report* * * DATE OF EXAM: May 19 2023 2:31PM WOX [id number] - XR HAND 3V PA/LAT/OBL LT / PROCEDURE REASON: Left hand pain * * * * Physician Interpretation * * * * TITLE: XR HAND 3V PA/LAT/OBL LT CLINICAL INDICATION: Pain TECHNIQUE: 3 view radiographic study of the left hand COMPARISON: None FINDINGS: No acute fracture or dislocation identified. Joint spaces preserved DIVISION OF RADIOLOGY Provider, Prateek Aquino - 05/19/2023 * * *Final Report* * * DATE OF EXAM: May 19 2023 2:31PM WOX [id number] - XR HAND 3V PA/LAT/OBL LT / PROCEDURE REASON: Left hand pain * * * * Physician Interpretation * * * * TITLE: XR HAND 3V PA/LAT/OBL LT CLINICAL INDICATION: Pain TECHNIQUE: 3 view radiographic study of the left hand COMPARISON: None FINDINGS: No acute fracture or dislocation identified. Joint spaces preserved IMPRESSION IMPRESSION: No radiographic evidence of acute osseous injury Truck Shop Supervisor: [facility] Transcribe Date/Time: May 19 2023 2:33P Dictated by : OWEN RANKIN MD This examination was interpreted and the report reviewed and electronically signed by: OWEN RANKIN MD on May 19 2023 2:34PM [facility] XR Hand - left PA and Latera l and ObliqueOrdered By: Ccf Provider on 05-19-2023 [facility] XR WRIST 4V PA/LAT/OBL/SCAPH LTon 05-19-2023 XR WRIST 4V PA/LAT/OBL/SCAPH LT * * *Final Report* * * DATE OF EXAM: May 19 2023 2:31PM WOX [id number] - XR WRIST 4V PA/LAT/OBL/SCAPH LT / PROCEDURE REASON: Left hand pain * * * * Physician Interpretation * * * * TITLE: XR WRIST 4V PA/LAT/OBL/SCAPH LT CLINICAL INDICATION: Pain TECHNIQUE: 4 view radiographic study of the left wrist COMPARISON: None FINDINGS: No acute fracture or dislocation identified. Joint spaces preserved IMPRESSION: No radiographic evidence of acute osseous injury to the left wrist Truck Shop Supervisor: PSCB Transcribe Date/Time: May 19 2023 2:30P Dictated by : OWEN RANKIN MD This examination was interpreted and the report reviewed and electronically signed by: OWEN RANKIN MD on May 19 2023 2:33PM EST [id number] Normal [facility] XR Wrist - left 4 Viewson IMPRESSION: No radiographic evidence of acute osseous injury to the left wrist Truck Shop Supervisor: PSCB Transcribe Date/Time: May 19 2023 2:30P Dictated by : OWEN RANKIN MD This examination was interpreted and the report reviewed and electronically signed by: OWEN RANKIN MD on May 19 2023 2:33PM EST DIVISION OF RADIOLOGY * * *Final Report* * * DATE OF EXAM: May 19 2023 2:31PM WOX [id number] - XR WRIST 4V PA/LAT/OBL/SCAPH LT / PROCEDURE REASON: Left hand pain * * * * Physician Interpretation * * * * TITLE: XR WRIST 4V PA/LAT/OBL/SCAPH LT CLINICAL INDICATION: Pain TECHNIQUE: 4 view radiographic study of the left wrist COMPARISON: None FINDINGS: No acute fracture or dislocation identified. Joint spaces preserved DIVISION OF RADIOLOGY [facility] * * *Final Report* * * DATE OF EXAM: May 19 2023 2:31PM WOX [id number] - XR WRIST 4V PA/LAT/OBL/SCAPH LT / PROCEDURE REASON: Left hand pain * * * * Physician Interpretation * * * * TITLE: XR WRIST 4V PA/LAT/OBL/SCAPH LT CLINICAL INDICATION: Pain TECHNIQUE: 4 view radiographic study of the left wrist COMPARISON: None FINDINGS: No acute fracture or dislocation identified. Joint spaces preserved IMPRESSION IMPRESSION: No radiographic evidence of acute osseous injury to the left wrist Truck Shop Supervisor: PSCB Transcribe Date/Time: May 19 2023 2:30P Dictated by : OWEN RANKIN MD This examination was interpreted and the report reviewed and electronically signed by: OWEN RANKIN MD on May 19 2023 2:33PM EST [facility] AYAHGabby 01-27-2023 [facility] RODERICK DUNCAN ([id number]) 1 F Date Time Provider Department 01/27/23 JEFFRY BERNARD [facility] During your visit today, we recorded the following information about you: Jeffry Bernard PA 01/27/2023 7:45 AM Signed Please let patient know she tested positive for COVID-19. Mask for 5 days. Isolate for 5 more days. Supportive measures at home. Tia Young MA 01/27/2023 8:20 AM Signed Left message for pt to call back. PRIYA Roman Stephanie, RN 01/27/2023 8:48 AM Signed Patient notified of results and provider's instructions. Patient verbalizes understanding. Jeanette Koenig RN Allergies As of Date: 01/27/2023 (No Known Allergies) Date Reviewed: 01/26/2023 Reviewed by: Manisha Bernard LPN - Fully Assessed Reason for Visit: Results [95] Prescriptions as of 01/27/2023 - amoxicillin (AMOXIL) 875 mg tablet Take 1 tablet by mouth two times a day for 7 days. - methylphenidate (RITALIN) 20 mg tablet 1 1/2 tablet in afternoon - FEXOFENADINE HCL (GEORGE ALLERGY ORAL) Take by mouth. - methylphenidate ER 54 mg CR tablet Take 1 tablet by mouth once daily. - methylphenidate ER 54 mg CR tablet Take 1 tablet by mouth once daily. - methylphenidate ER 54 mg CR tablet Take 1 tablet by mouth once daily. - Pedi MVI No.17 with Fluoride (MULTI-VITAMIN WITH FLUORIDE) 1 mg chew Take one(1) tablet daily. Meds Comments as of 10/12/2022: No daily meds per pt 10/12/22 Problem List As Of Date 01/27/2023 Noted Resolved ADHD (attention deficit hyperactivity disorder)*05/09/2010 Viral Warts [B07.9] 11/18/2010 Sever's disease [M92.60] 07/26/2013 Encounter Status:Closed by JEANETTE KOENIG on 01/27/23 [facility] CNOVon 01-26-2023 CNOV Office Visit (UCWSTR ) RODERICK DUNCAN ([id number]) 1 F Date Time Provider Department 01/26/23 1:45 PM ELLA RODRIGUEZ [facility] During your visit today, we recorded the following information about you: Temperature Pulse Respiration Blood pressure 97.9 degrees 77/minute 18/minute 119/75 Weight Last Period 86.2 kg 01/26/23 Ella Rodriguez APRN.[facility] 01/26/2023 2:03 PM Signed ASSESSMENT/PLAN: 1. Viral URI with cough - [...] Discussed expected course of illness Ella Rodriguez APRN.[employer] MECHANIC Treatment for Viral Upper Respiratory Tract Infections Your body will kill off the virus by itself. Additionally, you can prime your body's immune system. This may help you get better more quickly. Drink lots of fluids Make sure you are eating well Get plenty of rest We do not have any medications that kill off these viruses. Antibiotics are used to treat bacterial infections; however, they are not active against viral infections. There are some things that might help you feel better, though. Vaporizers, humidifiers, hot showers, and hot fluids help open respiratory and sinus passages [place] Nasal Manvel may offer relief of nasal and head congestion Mesfin's Vapor Rub may relieve congestion Tylenol and Advil help control fevers and headaches Salt water gargles help relieve sore throats Chloraceptic spray or throat lozenges may also help relieve sore throat symptoms Occasionally, viral infections turn into something more serious. You should see your doctor or return to the Urgent Care if: You have fevers for longer than five days You have fevers above 102 degrees You are still sick after 10 days You have shortness of breath or wheezing After several days you are getting worse rather than better Ella Rodriguez APRN.[employer] MECHANIC 01/26/2023 2:20 PM Signed Subjective Ear Pain Associated symptoms include congestion, coughing, headaches and a sore throat. Pertinent negatives include no chest pain, chills, fever, myalgias, nausea or vomiting. Roderick Duncan is a 17 year old female who presents with left ear pain today and headache, cough and sore throat for the past 3 days. She has not had a fever. She has been around coworkers who have been sick. She has been taking mucinex and tylenol for symptoms. She rates ear pain 8/10. Review of Systems Constitutional: Negative for chills [...] Alcohol/Drug Mother Social History Tobacco Use Smoking (more content not included)... Normal [facility] SARS-CoV-2 RNA Resp Ql SURI+p robeon 01-26-2023 SARS-CoV-2 (COVID-19) RNA SURI+probe Ql (Resp) COVID 19 RESULT: Detected The method used is RT-PCR or an equivalent NAAT method. Reference Range (the expected result in uninfected individuals): Not detected Normal [facility] Comment on above: Performed By: #### [id number] #### [facility] CLIA [id number] [address] [place] [address] [place] STREP A MOLECULAR (POC)on Procedural Control Valid [facility] Strep A (POCT) Negative Negative [facility] XR CHEST 2V FRONTAL/LATon [facility] XR Chest PA and Lateralon IMPRESSION: Within normal limits. No acute cardiopulmonary abnormalities. Truck Shop Supervisor: KRIS Transcribe Date/Time: Apr 07 2022 4:59P Dictated by : DALTON JEFFERSON MD This examination was interpreted and the report reviewed and electronically signed by: DALTON JEFFERSON MD on Apr 07 2022 5:00PM [facility] DIVISION OF RADIOLOGY * * *Final Report* * * DATE OF EXAM: Apr 07 2022 4:58PM WOX [id number] - XR CHEST 2V FRONTAL/LAT / PROCEDURE REASON: Hemoptysis * * * * Physician Interpretation * * * * EXAMINATION: CHEST RADIOGRAPH (2 VIEW FRONTAL & LATERAL) 03/30/2022 CLINICAL HISTORY: Hemoptysis MQ: XC2_6 EXAM DATE/TIME: 04/07/2022 4:58 PM COMPARISON: None RESULT: Lines, tubes, and devices: None. Lungs and pleura: No pulmonary infiltrates. Linear fibrotic strand or artifact overlying the right apex. No pleural effusion. No pneumothorax. Cardiomediastinal silhouette: Normal cardiomediastinal silhouette. Bones and soft tissues: Unremarkable. DIVISION OF RADIOLOGY Provider, [facility] - 04/07/2022 * * *Final Report* * * DATE OF EXAM: Apr 07 2022 4:58PM WOX 5291 - XR CHEST 2V FRONTAL/LAT / PROCEDURE REASON: Hemoptysis * * * * Physician Interpretation * * * * EXAMINATION: CHEST RADIOGRAPH (2 VIEW FRONTAL & LATERAL) 03/30/2022 CLINICAL HISTORY: Hemoptysis MQ: XC2_6 EXAM DATE/TIME: 04/07/2022 4:58 PM COMPARISON: None RESULT: Lines, tubes, and devices: None. Lungs and pleura: No pulmonary infiltrates. Linear fibrotic strand or artifact overlying the right apex. No pleural effusion. No pneumothorax. Cardiomediastinal silhouette: Normal cardiomediastinal silhouette. Bones and soft tissues: Unremarkable. IMPRESSION IMPRESSION: Within normal limits. No acute cardiopulmonary abnormalities. Truck Shop Supervisor: KRIS Transcribe Date/Time: Apr 07 2022 4:59P Dictated by : DALTON JEFFERSON MD This examination was interpreted and the report reviewed and electronically signed by: DALTON JEFFERSON MD on Feb 28 2023 5:00PM [facility] Radiology Study observation (narrative) [facility] XR Chest PA and LateralOrder ed By: Ccf Provider on 04-07-2022 [facility] POCT urine HCGOrdered By: Venkata Cramer on 09-05-2021 Clear Background *Present [facility] Control Line *Present [facility] HCG ( test) Ql (U) Negative Negative [facility] Interpretation and review of laboratory results Normal [facility] Lot Number [id number] [facility] SARS CoV-2 RT-PCRon 09-04-19 22 SARS-CoV-2 (COVID-19) RNA SURI+probe Ql (Unsp spec) Negative [facility] Comment on above: NEGATIVE: SARS-CoV-2 RNA was NOT detected - Interpretation: A negative result indicates severe acute respiratory syndrome coronavirus 2 (SARS-CoV-2) RNA was not detected. Negative results do not preclude SARS-CoV-2 infection and should not be used as the sole basis for patient management decisions. Negative results must be combined with clinical observations, patient history, and epidemiological information. The possibility of a false negative result should be considered if the patient's recent exposures or clinical presentation suggest that SARS-CoV-2 infection is possible, and diagnostic tests for other causes of illness are negative. If SARS-CoV-2 infection is still suspected, re-testing should be considered. - Method: Real-time reverse transcriptase PCR amplification for the qualitative detection of the ORF1 a/b non-structural region that is unique to SARS-CoV-2 and a conserved region in the structural protein envelope E-gene for shahid-Sarbecovirus detection using the Geovanna SARS-CoV-2 assay on the Xena Geovanna 6800 System. - Comment: This test has received FDA Emergency Use Authorization (EUA) and has been verified by [facility]. This test is only authorized for the duration of the public health emergency declaration and the circumstances that exist to justify the authorization of the emergency use of in vitro diagnostic tests for the detection of SARS-CoV-2 virus and/or diagnosis of COVID-19 infection under section 564(b)(1) of the Act, 21 U.S.C. 360bbb-3(b)(1), unless the authorization is terminated or revoked sooner. This test has not been FDA cleared or approved. Results should be used in conjunction with clinical findings, and should not form the sole basis for a diagnosis or treatment decision. - Fact Sheets for this EUA can be found at the following links: For Healthcare Providers: www.[employer].gov/[facility]/285137/download For Patients: www.[employer].gov/[facility]/284006/download - Reference Value: Negative [facility] HCG, Urine (MV only)on 05-21 Beta HCG ( test) Ql (U) Negative mIU/mL [facility] Comment on above: Non females and males-Negative females-Positive Reason for preventin g automatic release->Other Release to patient->Manual release only [facility] MRI KNEE W/O CONTRAST LEFTon 05-09-2021 MRI KNEE W/O CONTRAST LEFT ORIGINAL EXAMINATION: MRI OF THE LEFT KNEE WITHOUT CONTRAST05/08/2021 9:46 pm TECHNIQUE: Multiplanar multisequence MRI of the left knee was performed without the administration of intravenous contrast. COMPARISON: None available. HISTORY: ORDERING SYSTEM PROVIDED HISTORY: Reason for Exam: ACL LAXITY. Left knee pain primarily about the patella. Lacrosse injury. FINDINGS: MUSCLES, TENDONS, AND LIGAMENTS: There is a complete tear of the anterior cruciate ligament at its midsubstance. The posterior cruciate ligament is intact. Mild periligamentous edema is noted about and otherwise unremarkable medial collateral ligament. There is fairly significant intrasubstance edema at the origin of the lateral collateral ligament without definitive fiber discontinuity, compatible with low-grade sprain. There is also increased intermediate intrasubstance signal at the conjoint tendon near the fibular attachment, compatible with low-grade sprain. Significant periligamentous edema is noted about the iliotibial band without evidence of fiber discontinuity. Edema is noted about the arcuate ligament and fabello-fibular ligament. The popliteus tendon and extensor mechanism are intact. MENISCI: There is a short-segment mildly complex tear of the medial meniscal posterior horn-body junction and posterior horn with horizontal longitudinal tear extending to the inferior articular surface as well as a vertical longitudinal tear extending from the posterior horn to the posterior root attachment. There is also irregularity of the meniscocapsular junction adjacent to posterior horn of medial meniscus, concerning for injury. There also findings suspicious for inner free edge radial tear of the posterior horn of lateral meniscus, best seen on coronal image 12/06 and axial image 01/06 respectively. OSSEOUS STRUCTURES AND JOINTS: No fracture or dislocation is evident. Bone marrow edema is noted of the lateral tibial plateau extending to the tibial spines. There is also subtle bone marrow edema of the fibular head. No visualized marrow replacing osseous lesions. The hyaline articular cartilage of the femorotibial joint spaces is intact. The hyaline articular cartilage of the patellofemoral joint space is intact. Mild lateral subluxation is noted of the patella which may relate to pseudosubluxation. There is also hypoplasia of the trochlear groove. Tibial tuberosity-trochlear groove distance is normal measuring 12 mm. Large volume knee joint effusion with thin suprapatellar plica. SOFT TISSUES: No significant volume of fluid is evident in a popliteal cyst. IMPRESSION: 1. Complete tear of anterior cruciate ligament. There are findings compatible with posterolateral corner injury, as described above. 2. Medial and lateral meniscal tears, as above. 3. Low-grade sprain of medial collateral ligament. 4. Osseous contusions of the proximal tibia and proximal fibula without evidence of macrotrabecular fracture. 5. Large volume knee joint effusion. Interpreted by: Jaziel Loomis DO Preliminary Report By: Jaziel Loomis DO Electronically signed By Jaziel Loomis DO Dictated Date: 05/09/2021 6:51:11 AM Prelim Date: 05/09/2021 7:01:05 AM Sign Date: 05/09/2021 7:01:05 AM Ordering Provider: YURI KOENIG [facility] ([place] Vital Signs Date Time Vital Sign Value Performing Clinician Facility 11-02-2024 13:00-0400 Heart rate 62 /min Yuri Koenig MD Work Phone: [facility] 11-02-2024 13:00-0400 Respiratory rate 17 /min Yuri Koenig MD Work Phone: [facility] 11-02-2024 13:00-0400 SaO2% (BldA) [Mass fraction] 98 % Yuri Koenig MD Work Phone: [facility] 11-02-2024 12:45-0400 Diastolic blood pressure 80 mm[Hg] Yuri Koenig MD Work Phone: [facility] 11-02-2024 12:45-0400 Systolic blood pressure 91 mm[Hg] Yuri Koenig MD Work Phone: [facility] 11-02-2024 11:36-0400 Body temperature 96.8 [degF] Yuri Koenig MD Work Phone: [facility] 11-02-2024 09:15-0400 Body height 155.8 cm Yuri Koenig MD Work Phone: [facility] 11-02-2024 09:15-0400 Body mass index (BMI) [Ratio] 35.35 kg/m2 Yuri Koenig MD Work Phone: [facility] [place] 11-02-2024 09:15-0400 Body weight 85.8 kg Yuri Koenig MD Work Phone: [facility] 01-03-2024 09:16-0500 Diastolic blood pressure 79 mm[Hg] Opal Govea MD Work Phone: [facility] 01-03-2024 09:16-0500 Systolic blood pressure 121 mm[Hg] Opal Govea MD Work Phone: [facility] 12-26-2023 07:22-0500 Body height 154.9 cm Sabas Tran MD Work Phone: [facility] 12-26-2023 07:22-0500 Body mass index (BMI) [Ratio] 35.9 kg/m2 Sabas Tran MD Work Phone: [facility] 12-26-2023 07:22-0500 Body temperature 98.01 [degF] Sabas Tran MD Work Phone: [facility] 12-26-2023 07:22-0500 Body weight 86.18 kg Sabas Tran MD Work Phone: [facility] 12-26-2023 07:22-0500 Diastolic blood pressure 80 mm[Hg] Sabas Tran MD Work Phone: [facility] 12-26-2023 07:22-0500 Heart rate 80 /min Sabas Tran MD Work Phone: [facility] 12-26-2023 07:22-0500 Respiratory rate 16 /min Sabas Tran MD Work Phone: [facility] 12-26-2023 07:22-0500 SaO2% (BldA) [Mass fraction] 100 % Sabas Tran MD Work Phone: [facility] 12-26-2023 07:22-0500 Systolic blood pressure 133 mm[Hg] Sabas Tran MD Work Phone: [facility] 07-18-2023 08:50-0400 Body mass index (BMI) [Ratio] 37.7 kg/m2 Wendy Athy PA-C Work Phone: [facility] 07-18-2023 08:50-0400 Body temperature 97.2 [degF] Wendy Athy PA-C Work Phone: [facility] 07-18-2023 08:50-0400 Body weight 90.5 kg Wendy Athy PA-C Work Phone: [facility] 07-18-2023 08:50-0400 Diastolic blood pressure 66 mm[Hg] Wendy Athy PA-C Work Phone: [facility] 07-18-2023 08:50-0400 Heart rate 74 /min Wendy Athy PA-C Work Phone: [facility] 07-18-2023 08:50-0400 Respiratory rate 16 /min Wendy Athy PA-C Work Phone: [facility] 07-18-2023 08:50-0400 SaO2% (BldA) [Mass fraction] 97 % Wendy Athy PA-C Work Phone: [facility] 07-18-2023 08:50-0400 Systolic blood pressure 118 mm[Hg] Wendy Athy PA-C Work Phone: [facility] 05-19-2023 14:02-0400 Body temperature 97.11 [degF] Krislyn Aberegg PA Work Phone: [facility] 05-19-2023 14:02-0400 Body weight 88.6 kg Krislyn Aberegg PA Work Phone: [facility] 05-19-2023 14:02-0400 Diastolic blood pressure 66 mm[Hg] Krislyn Aberegg PA Work Phone: [facility] 05-19-2023 14:02-0400 Heart rate 72 /min Krislyn Aberegg PA Work Phone: [facility] 05-19-2023 14:02-0400 Respiratory rate 16 /min Krislyn Aberegg PA Work Phone: [facility] 05-19-2023 14:02-0400 SaO2% (BldA) [Mass fraction] 98 % Krislyn Aberegg PA Work Phone: [facility] 05-19-2023 14:02-0400 Systolic blood pressure 118 mm[Hg] Krislyn Aberegg PA Work Phone: [facility] 02-21-2023 16:30-0500 Body height 154.94 cm [facility] 02-21-2023 16:30-0500 Body mass index (BMI) [Percentile] Per age and sex 97.1 % [facility] 02-21-2023 16:30-0500 Body mass index (BMI) [Ratio] 34.9 kg/m2 [facility] 02-21-2023 16:30-0500 Body temperature 98.1 [degF] [place] 02-21-2023 16:30-0500 Body weight 83.91 kg [facility] 02-21-2023 16:30-0500 Diastolic blood pressure 80 mm[Hg] [facility] 02-21-2023 16:30-0500 Heart rate 82 /min [facility] 02-21-2023 16:30-0500 Respiratory rate 16 /min [place] 02-21-2023 16:30-0500 SaO2% (BldA) [Mass fraction] 98 % [facility] 02-21-2023 16:30-0500 Systolic blood pressure 138 mm[Hg] [facility] 04-07-2022 16:32-0500 Body temperature 98.91 [degF] Wendy Athy PA-C Work Phone: [facility] 04-07-2022 16:32-0500 Body weight 91.17 kg Ewndy Athy PA-C Work Phone: [facility] 04-07-2022 16:32-0500 Diastolic blood pressure 70 mm[Hg] Wendy Athy PA-C Work Phone: [facility] 04-07-2022 16:32-0500 Heart rate 102 /min Wendy Athy PA-C Work Phone: [facility] 04-07-2022 16:32-0500 Respiratory rate 18 /min Wendy Athy PA-C Work Phone: [facility] 04-07-2022 16:32-0500 SaO2% (BldA) [Mass fraction] 98 % Wendy Athy PA-C Work Phone: [facility] 04-07-2022 16:32-0500 Systolic blood pressure 112 mm[Hg] Wendy Athy PA-C Work Phone: [facility] 09-05-2021 17:30-0400 Body temperature 97.2 [degF] Yuri Koenig MD Work Phone: [facility] 09-05-2021 17:30-0400 Diastolic blood pressure 49 mm[Hg] Yuri Koenig MD Work Phone: [facility] 09-05-2021 17:30-0400 Heart rate 62 /min Yuri Koenig MD Work Phone: [facility] 09-05-2021 17:30-0400 Respiratory rate 16 /min Yuri Koenig MD Work Phone: [facility] 09-05-2021 17:30-0400 SaO2% (BldA) [Mass fraction] 96 % Yuri Koenig MD Work Phone: [facility] 09-05-2021 17:30-0400 Systolic blood pressure 90 mm[Hg] Yuri Koenig MD Work Phone: [facility] 09-05-2021 14:28-0400 Body height 155.5 cm Yuri Koenig MD Work Phone: [facility] 09-05-2021 14:28-0400 Body mass index (BMI) [Percentile] Per age and sex 97.08 % Yuri Koenig MD Work Phone: [facility] 09-05-2021 14:28-0400 Body mass index (BMI) [Ratio] 33.33 kg/m2 Yuri Koenig MD Work Phone: [facility] 09-05-2021 14:28-0400 Body weight 80.6 kg Yuri Koenig MD Work Phone: [facility] 05-21-2021 16:00-0400 Body temperature 98.4 [degF] Yuri Koenig MD Work Phone: [facility] 05-21-2021 16:00-0400 Diastolic blood pressure 80 mm[Hg] Yuri Koenig MD Work Phone: [facility] 05-21-2021 16:00-0400 Heart rate 94 /min Yuri Koenig MD Work Phone: [facility] 05-21-2021 16:00-0400 Respiratory rate 20 /min Yuri Koenig MD Work Phone: [facility] 05-21-2021 16:00-0400 SaO2% (BldA) [Mass fraction] 98 % Yuri Koenig MD Work Phone: [facility] 05-21-2021 16:00-0400 Systolic blood pressure 136 mm[Hg] Yuri Koenig MD Work Phone: [facility] 05-21-2021 11:56-0400 Body height 156.5 cm Yuri Koenig MD Work Phone: [facility] 05-21-2021 11:56-0400 Body mass index (BMI) [Percentile] Per age and sex 94.59 % Yuri Koenig MD Work Phone: [facility] 05-21-2021 11:56-0400 Body mass index (BMI) [Ratio] 29.81 kg/m2 Yuri Koenig MD Work Phone: [facility] 05-21-2021 11:56-0400 Body weight 73 kg Yuri Koenig MD Work Phone: [facility] Encounters Encounter Date Encounter Type Care Provider Facility Start: 11-24-2024 End: 11-24-2024 ambulatory [facility] Start: 11-02-2024 End: 11-02-2024 ambulatory [facility] Start: 11-02-2024 End: 11-02-2024 Preprocedural examination done Yuri Koenig MD Work Phone: [facility] Start: 11-02-2024 End: 11-02-2024 Subsequent hospital visit by physician Yuri Koenig MD Work Phone: [facility] Comment on above: 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); Pre-operative examination; Left knee pain, unspecified chronicity; Chronic pain of left knee Start: 10-26-2024 End: 10-26-2024 ambulatory MAVIS Arreola FELIX [facility] Start: 10-26-2024 End: 10-26-2024 Subsequent hospital visit by physician Yuri Koenig MD Work Phone: [facility] [place] Comment on above: Left knee pain, unsp ecified chronicity (Primary Dx) Start: 10-26-2024 End: 10-26-2024 [facility] Start: 09-07-2024 End: 09-07-2024 ambulatory MAVIS Arreola [facility] Start: 07-01-2024 End: 07-01-2024 Emergency department patient visit ALEIDA GUNTER Facility:[facility] Start: 01-03-2024 End: 01-03-2024 Office outpatient new 30 minutes Opal Govea MD Work Phone: [facility] [place] Comment on above: Acute right ankle pa in (Primary Dx); Sprain of right ankle, initial encounter Start: 01-03-2024 End: 01-03-2024 Subsequent hospital visit by physician Opal Govea MD Work Phone: [facility] Comment on above: Acute right ankle pa in Start: 01-03-2024 End: 01-03-2024 ambulatory [facility] Start: 12-26-2023 End: 12-26-2023 Subsequent hospital visit by physician [facility] [employer] [facility] Radiology Comment on above: Arrived Start: 12-26-2023 End: 12-26-2023 Emergency department patient visit Sabas Tran MD Work Phone: [facility] ED Comment on above: Sprain of right ankl e, initial encounter (Primary Dx) Start: 11-08-2023 End: 11-08-2023 Subsequent hospital visit by physician Abdelrahman Gudino PA-C Work Phone: [facility] Comment on above: Left knee pain, unsp ecified chronicity Start: 10-26-2023 End: 10-26-2023 Subsequent hospital visit by physician Abdelrahman Gudino PA-C Work Phone: [facility] Comment on above: Arrived Start: 07-18-2023 End: 07-18-2023 ambulatory Facility:[facility] Start: 07-18-2023 End: 07-18-2023 Patient encounter procedure Wendy Pendleton PA-C Work Phone: [facility] Comment on above: Acute URI (Primary D x) Start: 05-19-2023 End: 05-19-2023 Subsequent hospital visit by physician Durga [facility] Work Phone: Radiology Comment on above: Left hand pain [M79. 642] Start: 05-19-2023 End: 05-19-2023 ambulatory Facility:[facility] Start: 05-19-2023 End: 05-19-2023 Patient encounter procedure Jeffry COOLEY Work Phone: [place] [employer] [facility] Comment on above: Left hand pain (Prim yokasta Dx) Start: 02-21-2023 End: 02-21-2023 Emergency department patient visit [facility] Work Phone: Start: 01-26-2023 End: 01-26-2023 ambulatory Facility:[facility] Start: 04-07-2022 End: 04-07-2022 Subsequent hospital visit by physician [facility] Work Phone: Radiology Comment on above: Hemoptysis [R04.2] Start: 04-07-2022 End: 04-07-2022 Patient encounter procedure Wendy Pendleton PA-C Work Phone: [facility] [employer] [facility] Comment on above: Sore throat (Primary Dx); Hemoptysis; Viral URI with cough Start: 09-05-2021 End: 09-05-2021 Preprocedural examination done Yuri Koenig MD Work Phone: [facility] Start: 09-05-2021 End: 09-05-2021 Subsequent hospital visit by physician Yuri Koenig MD Work Phone: [facility] Comment on above: 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); Mental disorder; BMI (body mass index), pediatric, 85% to less than 95% for age; Pre-operative examination; IUD (intrauterine device) in place; ADHD (attention deficit hyperactivity disorder), combined type; BMI (body mass index), pediatric, 95-99% for age; Fibrosis of knee joint, unspecified laterality; ACL laxity, left; New ACL tear, left, initial encounter; Acute lateral meniscal injury of the knee, left, initial encounter Start: 09-03-2021 End: 09-03-2021 Subsequent hospital visit by physician Yuri Koenig MD Work Phone: [facility] Comment on above: Fibrosis of knee magen nt, unspecified laterality Start: 05-21-2021 End: 05-21-2021 Preprocedural examination done Yuri Koenig MD Work Phone: [facility] Start: 05-21-2021 End: 05-21-2021 Subsequent hospital visit by physician Yuri Koenig MD Work Phone: [facility] Comment on above: Pre-operative examin ation; New ACL tear, left, initial encounter; Acute lateral meniscal injury of the knee, left, initial encounter Procedures Date Procedure Procedure Detail Performing Clinician Start: 11-02-2024 Urine test visual color cmprsn meths Blanca Nunn [employer] Work Phone: Start: 01-03-2024 Radex ankle complete minimum 3 views Opal Govea MD Work Phone: Start: 12-26-2023 Radex ankle complete minimum 3 views Sabas Tran MD Work Phone: Start: 11-08-2023 Mri any jt lower ext rem w/o contrast matrl Abdelrahman COOLEY-C Work Phone: Start: 10-26-2023 Radiologic exam knee complete 4/more views Abdelrahman COOLEY-C Work Phone: Start: 07-18-2023 STREP A MOLECULAR (POC) Wendy Pendleton PA-C Work Phone: Start: 05-19-2023 Radex hand minimum 3 views Jeffry COOLEY Work Phone: Start: 04-07-2022 Radiologic exam ches t 2 views Wendy Stevens Athy PA-C Work Phone: Start: 04-07-2022 STREP A MOLECULAR (POC) Wendy Rodney Athy PA-C Work Phone: Start: 09-05-2021 Urine test visual color cmprsn meths Blanca Nunn [employer] Work Phone: Start: 09-03-2021 SARS COV-2 RT-PCR Fina Koenig MD Work Phone: Start: 05-21-2021 Urine test visual color cmprsn karens Camilla Guerrero [employer] Work Phone: Plan of Treatment Date Care Activity Detail Author Start: 07-18-2078 RSV Immunization for Adults (1 - 1-dose 75+ series) RSV Immunization for Adults (1 - 1-dose 75+ series) [facility] Start: 07-18-2053 Zoster Vaccines (1 of 2) Zoster Vacc otis (1 of 2) [facility] Start: 07-01-2034 Tetanus Diphtheria a nd Pertussis Vaccines (8 - Td or Tdap) Tetanus Diphtheria and Pertussis Vaccines (8 - Td or Tdap) [facility] Start: 10-02-2025 DTaP/Tdap/Td Vaccine s (7 - Td or Tdap) DTaP/Tdap/Td Vaccines (7 - Td or Tdap) [facility] Start: 10-02-2025 Tetanus Diphtheria a nd Pertussis Vaccines (7 - Td or Tdap) Tetanus Diphtheria and Pertussis Vaccines (7 - Td or Tdap) [facility] Start: 10-02-2025 Urine microalbumin profile DTaP,Tdap,Td Vaccine (7 - Td or Tdap) [facility] Start: 12-29-2024 End: 12-29-2024 Patient encounter procedure 12/29/2024 8:30 AM EST Office Visit [facility] [address] [place] [id number] Yuri Koenig MD [address] [place] [id number] PO LEFT KNEE SX 11/02/24 [facility] [place] Comment on above: PO LEFT KNEE SX 11/02 [facility] Start: 11-24-2024 End: 11-24-2024 Patient encounter procedure 11/24/2024 8:30 AM EDT Office Visit [facility] [address] [place] [address] [place] [address] Yuri Koenig MD [address] [place] [address] PO LEFT KNEE SX 11/02/24 [facility] [place] Comment on above: PO LEFT KNEE SX 11/02 [facility] Start: 11-02-2024 End: 11-02-2024 Admission to same day surgery center 11/02/2024 10:35 AM EDT - 11/02/2024 11:55 AM EDT Surgery [facility] [place] [address] Yuri Koenig MD [address] [place] [address] Arthroscopy left knee with debridement scar and possible partial meniscectomy [facility] Comment on above: Arthroscopy left kne e with debridement scar and possible partial meniscectomy Start: 11-02-2024 End: 11-02-2024 Arthroscopy knee synovectomy limited spx [facility] Start: 11-02-2024 Subsequent hospital visit by physician 11/02/2024 10:35 AM EDT Hospital Encounter [facility] [place] [address] Yuri Koenig MD [address] [place] [address] [facility] Start: 10-09-2024 COVID-19 (2024-03 6 season) COVID-19 ( season) [facility] Start: 10-09-2024 FLU (#1) FLU (#1) [facility] Start: 07-18-2024 Microscopic observat ion [Identifier] in Cervix by Cyto stain Pap Smear [facility] Start: 10-10-2023 COVID-19 (2022- 4 season) COVID-19 ( season) [facility] Start: 10-10-2023 COVID-19 Vaccine ( season) COVID-19 Vaccine () [facility] Start: 10-10-2023 Covid-19 Vaccine ( season) Covid-19 Vaccine () [facility] Start: 10-10-2023 Covid-19 Vaccine () Covid-19 Vaccine () [facility] Start: 10-10-2023 FLU (#1) FLU (#1) [facility] Start: 10-10-2023 Influenza vaccination C [facility] Start: 02-21-2023 [facility] Start: 02-08-2023 Behavioral Health Screening Behavioral Health Screening [facility] Start: 10-09-2022 Covid-19 Vaccine ( season) Covid-19 Vaccine () [facility] Start: 02-08-2022 DEPRESSION ASSESSMENT DEPRESSION ASS ESSMENT [facility] Start: 10-09-2021 FLU (#1) FLU (#1) [facility] Start: 09-10-2021 End: 09-10-2021 Patient encounter procedure 09/10/2021 Office Visit Pediatric Orthopedic Surgery Yuri Koenig MD [address] [place] [address] [facility] [place] Start: 09-06-2021 Well Visit Well Visit [facility] Start: 09-05-2021 End: 09-05-2021 Admission to same day surgery center 09/05/2021 Surgery Yuri Koenig MD [address] [place], [place] [id number] Manipulation left knee under anesthesia [facility] Comment on above: Manipulation left kn ee under anesthesia Start: 09-05-2021 End: 09-05-2021 KNEE MANIPULATION [facility] Start: 09-05-2021 Subsequent hospital visit by physician 09/05/2021 Hospital Encounter Yuri Koenig MD [address] [place] [address] [facility] Start: 07-18-2021 Anxiety Screening Anxiety Screening [facility] Start: 07-18-2021 CHLAMYDIA SCREENING (18-24) CHLAMYDIA SCREENING (18-24) [facility] Start: 07-18-2021 Depression Screening Depression Scre ening [facility] Start: 07-18-2021 GC (GONORRHEA) SCREE PAZ (18-24) GC (GONORRHEA) SCREENING (18-24) [facility] Start: 07-18-2021 Hearing Screening Hearing Screening [facility] Start: 07-18-2021 HEPATITIS C SCREENING HEPATITIS C [facility] Start: 07-18-2021 Hepatitis C screening Hepatitis C [facility] Start: 07-18-2021 HIV SCREENING HIV SCREENING [facility] Start: 07-18-2021 HIV screening HIV Screening [facility] Start: 07-18-2021 PATH Education 18+ Years PATH Educat ion 18+ Years [facility] Start: 07-18-2021 Screening for Chlamy carol trachomatis Chlamydia Screening () [facility] Start: 06-25-2021 End: 06-25-2021 Patient encounter procedure 06/25/2021 Office Visit Pediatric Orthopedic Surgery Yuri Koenig MD [address] [facility] [facility] [facility] [place] [address] [facility] Start: 06-13-2021 End: 06-13-2021 Patient encounter procedure 06/13/2021 Office Visit Pediatrics Mavis Ordaz, DO [address] [place] [address] [facility] Start: 05-28-2021 End: 05-28-2021 Patient encounter procedure 05/28/2021 Office Visit Pediatric Orthopedic Surgery Yuri Koenig MD [address] [facility] [place] [address] [facility] [place] Start: 05-21-2021 End: 05-21-2021 ARTHROSCOPY KNEE MENISCAL REPAIR ARTHROSCOPY KNEE MENISCAL REPAIR ACL laxity, left 05/21/2021 12:48 PM EDT [facility] Start: 05-21-2021 End: 05-21-2021 KNEE ACL RECONSTRUCTION QUAD TENDON KNEE ACL RECONSTRUCTION QUAD TENDON ACL laxity, left 05/21/2021 12:48 PM EDT [facility] Start: 01-08-2021 MenB (2 of 2 - MenB 2-Dose Series) MenB (2 of 2 - MenB 2-Dose Series) [facility] Start: 11-13-2020 COVID-19 (3 - Booste r for Pfizer series) COVID-19 (3 - Booster for Pfizer series) [facility] Start: 11-12-2020 Depo-Provera Depo-Provera [facility] Start: 08-08-2020 COVID-19 VACCINE (3 - Booster for Pfizer series) COVID-19 VACCINE (3 - Booster for Pfizer series) [facility] Start: 2019 MENINGOCOCCAL CONJUG ATE (1 - 2-dose series) MENINGOCOCCAL CONJUGATE (1 - 2-dose series) [facility] Start: 07-18-2018 PATH Education 15-17 + Years PATH Education 15-17+ Years [facility] Start: 07-18-2017 PEDS TO ADULT TRANSI TION ANNUAL ASSESSMENT PEDS TO ADULT TRANSITION ANNUAL ASSESSMENT [facility] Start: 2015 Depression Screening Depression [facility] Start: 2015 PATH Education 12-14 + Years PATH Education 12-14+ Years [facility] Start: 2015 PATH Transitional Assessment PATH Transitional Assessment [facility] Start: 2015 PEDS TO ADULT TRANSI TION INITIAL DISCUSSION PEDS TO ADULT TRANSITION INITIAL DISCUSSION [facility] Start: 07-18-2014 HPV VACCINE (1 - 2-d ose series) HPV VACCINE (1 - 2-dose series) [facility] Start: 07-18-2014 Urine microalbumin profile DTAP,TDAP,TD (6 - Tdap) [facility] Start: 07-18-2013 MENINGOCOCCAL B: Consider based on risk (1 of 2 - Risk Bexsero 2-dose series) MENINGOCOCCAL B: Consider based on risk (1 of 2 - Risk Bexsero 2-dose series) [facility] Start: 2003 HIV screening HIV Screening [facility] Start: 2003 Lipid panel [facility] Panel [facility] End: 11-02-2024 HCG, Urine HCG, Urine Lab Routine For lab collect this frequency defaults to the next routine lab draw time. Routine times: 0600; 1100; 1400; 1900; 2200 for 1 Occurrences starting 11/02/2024 until 11/02/2024 [facility] Work Phone: Comment on above: For lab collect this frequency defaults to the next routine lab draw time. Routine times: 0600; 1100; 1400; 1900; 2200 for 1 Occurrences starting 11/02/2024 until 11/02/2024 Patient Education ED Back Spasm, No Traum a [facility] Work Phone: Patient referral [facility] Work Phone: Immunizations Immunization Date Immunization Notes Care Provider Carla mohr 01-18-2022 influenza virus vacc ine, unspecified formulation Jeffry COOLEY Work Phone: [facility] 06-13-2021 meningococcal B vacc ine, recombinant, OMV, adjuvanted Yuri Koenig MD Work Phone: [facility] 06-13-2021 PFIZER COVID-19, mRN A, VAC-LUCAS, 30mcg/0.3mL dose Yuri Koenig MD Work Phone: [facility] 12-11-2020 influenza, injectabl e, quadrivalent, preservative free Yuri Koenig MD Work Phone: [facility] 12-11-2020 meningococcal B vacc ine, recombinant, OMV, adjuvanted Yuri Koenig MD Work Phone: [facility] 12-11-2020 influenza virus vacc ine, unspecified formulation Sabas Tran MD Work Phone: [facility] 09-06-2020 hepatitis A vaccine, pediatric/adolescent dosage, 2 dose schedule Yuri Koenig MD Work Phone: [facility] [place] 06-13-2020 PFIZER (purple cap) COVID-19, mRNA, LNP-S, 30mcg/0.3mL dose Yuri Koenig MD Work Phone: [facility] [place] 05-23-2020 PFIZER (purple cap) COVID-19, mRNA, LNP-S, 30mcg/0.3mL dose Yuri Koenig MD Work Phone: [facility] [place] 11-25-2019 influenza, injectabl e, quadrivalent, preservative free Yuri Koenig MD Work Phone: [facility] [place] 09-26-2019 hepatitis A vaccine, pediatric/adolescent dosage, 2 dose schedule Yuri Koenig MD Work Phone: [facility] [place] 09-26-2019 meningococcal polysaccharide (groups A, C, Y and W-135) diphtheria toxoid conjugate vaccine (MCV4P) Yuri Koenig MD Work Phone: [facility] [place] 12-15-2018 influenza, injectabl e, quadrivalent, preservative free Yuri Koenig MD Work Phone: [facility] [place] 11-02-2017 influenza, injectabl e, quadrivalent, preservative free Yuri Koenig MD Work Phone: [facility] [place] 10-22-2016 influenza, injectabl e, quadrivalent, preservative free Yuri Koenig MD Work Phone: [facility] [place] 04-13-2016 Human Papillomavirus 9-valent vaccine Yuri Koenig MD Work Phone: [facility] [place] 12-06-2015 Human Papillomavirus 9-valent vaccine Yuri Koenig MD Work Phone: [facility] [place] 12-06-2015 influenza, injectabl e, quadrivalent, preservative free Yuri Koenig MD Work Phone: [facility] [place] 10-03-2015 Human Papillomavirus 9-valent vaccine Yuri Koenig MD Work Phone: [facility] [place] 10-03-2015 meningococcal polysaccharide (groups A, C, Y and W-135) diphtheria toxoid conjugate vaccine (MCV4P) Yuri Koenig MD Work Phone: [facility] [place] 10-03-2015 tetanus toxoid, redu jesse diphtheria toxoid, and acellular pertussis vaccine, adsorbed Yuri Koenig MD Work Phone: [facility] [place] 11-28-2014 Influenza Vaccine 0. 5 mL >= 3 yr Quadrivalent Yuri Koenig MD Work Phone: [facility] [place] 11-28-2014 influenza, injectabl e, quadrivalent, contains preservative Wendy Pendleton PA-C Work Phone: [facility] Work Phone: 12-06-2013 Influenza Vaccine 0. 5 mL >= 3 yr Quadrivalent Yuri Koenig MD Work Phone: [facility] [place] 12-06-2013 influenza, seasonal, injectable Wendy Pendleton PA-C Work Phone: [facility] 11-10-2012 Influenza Vaccine 0. 5 mL >= 3 yr Quadrivalent Yuri Koenig MD Work Phone: [facility] [place] 11-10-2012 influenza virus vacc ine, unspecified formulation Yuri Koenig MD Work Phone: [facility] [place] 12-19-2011 Influenza Vaccine 0. 5 mL >= 3 yr Quadrivalent Yuri Koenig MD Work Phone: [facility] [place] 12-19-2011 influenza virus vacc ine, unspecified formulation Yuri Koenig MD Work Phone: [facility] [place] 11-15-2010 Influenza Vaccine 0. 5 mL >= 3 yr Quadrivalent Yuri Koenig MD Work Phone: [facility] [place] 11-15-2010 influenza virus vacc ine, unspecified formulation Yuri Koenig MD Work Phone: [facility] [place] 11-29-2009 influenza virus vacc ine, unspecified formulation Yuri Koenig MD Work Phone: [facility] [place] 11-29-2009 influenza, injectabl e, quadrivalent, preservative free Yuri Koenig MD Work Phone: [facility] [place] 11-10-2008 influenza virus vacc ine, unspecified formulation Wendy Pendleton PA-C Work Phone: [facility] 11-10-2008 influenza, injectabl e, quadrivalent, preservative free Yuri Koenig MD Work Phone: [facility] [place] 07-27-2008 diphtheria, tetanus toxoids and acellular pertussis vaccine Yuri Koenig MD Work Phone: [facility] [place] Work Phone: 07-27-2008 measles, mumps and rubella virus vaccine Yuri Koenig MD Work Phone: [facility] [place] 07-27-2008 poliovirus vaccine, inactivated Yuri Koenig MD Work Phone: [facility] [place] 07-27-2008 varicella virus vaccine Jeffery Koenig MD Work Phone: [facility] [place] 12-23-2007 influenza virus vacc ine, unspecified formulation Wendy Pendleton PA-C Work Phone: [facility] Work Phone: 12-23-2007 influenza, injectabl e, quadrivalent, preservative free Yuri Koenig MD Work Phone: [facility] [place] 04-09-2005 diphtheria, tetanus toxoids and acellular pertussis vaccine Yuri Koenig MD Work Phone: [facility] [place] 04-09-2005 haemophilus influenz ae type b vaccine, HbOC conjugate Wendy Pendleton PA-C Work Phone: [facility] Work Phone: 04-09-2005 haemophilus influenz ae type b vaccine, PRP-T conjugate Yuri Koenig MD Work Phone: [facility] [place] 07-21-2004 measles, mumps and rubella virus vaccine Yuri Koenig MD Work Phone: [facility] [place] 07-21-2004 pneumococcal conjuga te vaccine, 13 valent Yuri Koenig MD Work Phone: [facility] [place] 07-21-2004 pneumococcal conjuga te vaccine, 7 valent Wendy Pendleton PA-C Work Phone: [facility] Work Phone: 07-21-2004 varicella virus vaccine Jeffery Koenig MD Work Phone: [facility] [place] 02-11-2004 diphtheria, tetanus toxoids and acellular pertussis vaccine Yuri Koenig MD Work Phone: [facility] [place] 02-11-2004 DTaP-hepatitis B and poliovirus vaccine Wendy Pendleton PA-C Work Phone: [facility] Work Phone: 02-11-2004 haemophilus influenz ae type b vaccine, HbOC conjugate Wendy Pendleton PA-C Work Phone: [facility] Work Phone: 02-11-2004 haemophilus influenz ae type b vaccine, PRP-T conjugate Yuri Koenig MD Work Phone: [facility] [place] 02-11-2004 hepatitis B vaccine, pediatric or pediatric/adolescent dosage Yuri Koenig MD Work Phone: [facility] [place] 02-11-2004 influenza virus vacc ine, unspecified formulation Wendy Pendleton PA-C Work Phone: [facility] Work Phone: 02-11-2004 influenza, injectable,quadrivalent, preservative free, pediatric Yuri Koenig MD Work Phone: [facility] [place] 02-11-2004 pneumococcal conjuga te vaccine, 13 valent Yuri Koenig MD Work Phone: [facility] [place] 02-11-2004 pneumococcal conjuga te vaccine, 7 valent Wendy Pendleton PA-C Work Phone: [facility] Work Phone: 02-11-2004 poliovirus vaccine, inactivated Yuri Koenig MD Work Phone: [facility] [place] 2003 diphtheria, tetanus toxoids and acellular pertussis vaccine Yuri Koenig MD Work Phone: [facility] [place] 2003 DTaP-hepatitis B and poliovirus vaccine Wendy Pendleton PA-C Work Phone: [facility] Work Phone: 2003 haemophilus influenz ae type b vaccine, HbOC conjugate Wendy Pendleton PA-C Work Phone: [facility] Work Phone: 2003 haemophilus influenz ae type b vaccine, PRP-T conjugate Yuri Koenig MD Work Phone: [facility] [place] 2003 hepatitis B vaccine, pediatric or pediatric/adolescent dosage Yuri Koenig MD Work Phone: [facility] [place] 2003 pneumococcal conjuga te vaccine, 13 valent Yuri Koenig MD Work Phone: [facility] [place] 2003 pneumococcal conjuga te vaccine, 7 valent Wendy Pendleton PA-C Work Phone: [facility] Work Phone: 2003 poliovirus vaccine, inactivated Yuri Koenig MD Work Phone: [facility] [place] 2003 diphtheria, tetanus toxoids and acellular pertussis vaccine Yuri Koenig MD Work Phone: [facility] [place] 2003 DTaP-hepatitis B and poliovirus vaccine Wendy Pendleton PA-C Work Phone: [facility] Work Phone: 2003 haemophilus influenz ae type b vaccine, HbOC conjugate Wendy Pendleton PA-C Work Phone: [facility] Work Phone: 2003 haemophilus influenz ae type b vaccine, PRP-T conjugate Yuri Koenig MD Work Phone: [facility] [place] 2003 hepatitis B vaccine, pediatric or pediatric/adolescent dosage Yuri Koenig MD Work Phone: [facility] [place] 2003 pneumococcal conjuga te vaccine, 13 valent Yuri Koenig MD Work Phone: [facility] [place] 2003 pneumococcal conjuga te vaccine, 7 valent Wendy Pendleton PA-C Work Phone: [facility] Work Phone: 2003 poliovirus vaccine, inactivated Yuri Koenig MD Work Phone: [facility] [place] 2003 hepatitis B vaccine, pediatric or pediatric/adolescent dosage Yuri Koenig MD Work Phone: [facility] [place] Payers Date Payer Category Payer Blue [place] [facility] [id number] 2023 Unknown [id number] 2023 Unknown PENDING 2020 Unknown [id number] 2020 Unknown [id number] 2003 Unknown [id number] 2003 Unknown [id number] 2003 Unknown [id number] 2003 Unknown [id number] 2003 Unknown [id number] Unknown [facility] [id number] Social History Date Type Detail Facility Start: 07-23-2017 End: 09-03-2021 Tobacco smoking status NHIS Never smoked tobacco [facility] [place] Start: 07-23-2017 End: 09-03-2021 Tobacco use and exposure Smokeless tobacco non-user [facility] [place] Start: 05-21-2021 End: 11-02-2024 Alcohol intake Lifetime non-drinker (finding) [facility] [place] Start: 05-21-2021 End: 11-02-2024 Alcohol intake [facility] [place] Start: 10-20-2019 History SDOH Alcohol Frequency 1 [facility] [place] Start: 2003 Sex Assigned At Not on file A [facility] Start: 05-11-2021 End: 09-03-2021 Exposure to SARS-CoV-2 (event) Not sure [facility] [place] Start: 04-07-2022 End: 05-19-2023 Alcohol intake Not Asked [facility] Start: 02-21-2023 Tobacco smoking stat us KSIS Unknown if ever smoked [facility] Start: 2003 Sex Assigned At Female [facility] Start: 09-06-2020 End: 05-19-2023 Tobacco use panel [facility] National Score (1-100), lower number is lower risk 86 [facility] How often to you hav e a drink containing alcohol? Monthly or less [facility] How many standard drinks containing alcohol do you have on a typical day? 1 or 2 [facility] How often do you hav e 6 or more drinks on 1 occasion? Never [facility] [place] Start: 10-31-2014 End: 12-26-2023 Sex Female (finding) [facility] NEGATED: Highlighted rowStart: NINF History of tobacco use Passive smoker [facility] [place] Medical Equipment Procedure Code Equipment Code Equipment Origin al Text Equipment Identifier Dates Fast Fix Flex Cvd [id number] Start: 05-21-2021 20mm Tightrope Attach Button [id number] Start: 05-21-2021 Arth Fiberstick #2 [id number] Start: 05-21-2021 Tibial Acl Tight rope W/Button [id number] Start: 05-21-2021 Fast Fix Flex Cvd [id number] Start: 05-21-2021 Femoral Acl Tightrope [id number] Start: 05-21-2021 Clinical Notes 05-21-2021 to 11-02-2024 Nursing - Arely Chapman RN - 11/02/2024 11:12 AM EDTNursing - Arely Chapman RN - 11/02/2024 11:12 [facility] - Maureen Borja RN - 11/02/2024 10:49 AM EDTPatient Instructions Note Date & Type Note Facility 11-02-2024 Nurse Note Supplies were gathered and set up before a time out was performed. I assisted with positioning/prepping for a left canal block. Ultrasound utilized, with my assistance, for a needle placement. Procedure done by Dr. Clay for post-op pain control. Time spent on this patient/procedure 30 minutes. Arely Chapman, MORELIA [facility] [place] 11-02-2024 Miscellaneous Notes Supplies were gathered and set up before a time out was performed. I assisted with positioning/prepping for a left canal block. Ultrasound utilized, with my assistance, for a needle placement. Procedure done by Dr. Clay for post-op pain control. Time spent on this patient/procedure 30 minutes. Arely Chapman RN Problem: Anxiety, Patient/Family Goal: Effective coping Outcome: Ongoing Problem: Falls, Risk of Goal: Absence of falls Outcome: Ongoing Goal: Absence of physical injury Outcome: Ongoing Problem: Infection Risk, Surgical Site Goal: Absence of infection signs and symptoms Outcome: Ongoing Problem: Anxiety, Patient/Family Goal: Effective coping Outcome: Ongoing Problem: Body Temperature - Abnormal, Risk of Goal: Body temperature within specified parameters Outcome: Ongoing Problem: Nausea/Vomiting Goal: Post operative nausea and vomiting Outcome: Ongoing Problem: Gas Exchange - Impaired Goal: Absence of hypoxia Outcome: Ongoing Problem: Fluid Volume Imbalance, Risk of Goal: Absence of imbalanced fluid volume signs and symptoms Outcome: Ongoing Problem: Falls, Risk of Goal: Absence of falls Outcome: Ongoing Goal: Absence of physical injury Outcome: Ongoing Problem: Infection Risk, Surgical Site Goal: Absence of infection signs and symptoms Outcome: Ongoing Problem: Adverse Surgical Event, Risk of Goal: Absence of injury Outcome: Ongoing Problem: Pain - Acute Goal: Reduced pain sensation Outcome: Ongoing Problem: Transition Readiness Goal: Knowledge of discharge instructions Outcome: Ongoing Goal: Able to safely transition to next level of care Outcome: Ongoing documented in this encounter [facility] [place] 11-02-2024 Plan of care note Problem: Anxiety, Patient/Family Goal: Effective coping Outcome: Ongoing Problem: Falls, Risk of Goal: Absence of falls Outcome: Ongoing Goal: Absence of physical injury Outcome: Ongoing Problem: Infection Risk, Surgical Site Goal: Absence of infection signs and symptoms Outcome: Ongoing [facility] [place] 11-02-2024 Attending History and physical note H&P reviewed, patient examined, no changes have occured since H&P completed. Source Note - Blanca Nunn APRN-CNP - 10/26/2024 8:00 AM EDT PRE-OP CONSULTATION This is a telemedicine video visit requested by the patient/guardian that was performed with the patient's location at home and the provider's location at office. DATE OF SERVICE: 10/26/2024 RN OFFICE PROVIDER: LG Shipley SURGICAL DIAGNOSIS: left knee pain Proposed surgery date: 11/02/2024 ([facility]) Proposed surgical procedure: arthroscopy left knee with debridement scar and possible partial meniscectomy Advice/opinion was requested by Yuri Koenig MD for pre-surgical consultation. CHIEF COMPLAINT: left knee pain HISTORY OF PRESENT ILLNESS: Roderick Duncan is a 19 y.o. female with a PMH significant for ADHD and left knee pain who is being consulted via telehealth/video for perioperative evaluation. Roderick had an ACL repair in 05/2021 and she recovered well. She reports ongoing left knee pain for the last year. There was no known injury. She rates her pain 7/10 and is not taking medication for pain. Roderick denies numbness and tingling. Patient was evaluated by orthopedics and it was determined that she would benefit from surgery. Roderick has been otherwise at her baseline state of health and has not had any recent illnesses. The history is provided by the patient and a chart review for evaluation for surgical risk factors. MEDICAL/SURGICAL HISTORY: Past Medical History: Diagnosis Date ACL laxity, left 05/14/2021 Added automatically from request for surgery [id number] Acute lateral meniscal injury of the knee, left, initial encounter 05/14/2021 ADHD (attention deficit hyperactivity disorder) Fractures New ACL tear, left, initial encounter 05/14/2021 Past Surgical History: Procedure Laterality Date ANTERIOR CRUCIATE LIGAMENT REPAIR Left 05/21/2021 Arthroscopic anterior cruciate ligament reconstruction left knee with autologous quadriceps tendon graft; Left all inside medial meniscal repair; Left partial lateral meniscectomy performed by Yuri Koenig MD at OR ANTERIOR CRUCIATE LIGAMENT REPAIR 05/21/2021 performed by Yuri Koenig MD at OR KNEE JOINT MANIPULATION Left 09/05/2021 Manipulation left knee under anesthesia performed by Yuri Koenig MD at [facility] OR ORTHOPEDIC SURGERY Past hospitalizations: yes - not in the last year DRUG/FOOD ALLERGIES: Allergies[1] MEDICATIONS: Encounter Medications[2] ANESTHESIA HISTORY: Difficulty with anesthesia? No Family history of difficulty with anesthesia? no Signs/symptoms of LAYLA? yes - snoring, no known apnea BLEEDING HISTORY: History of bleeding/clotting issues in patient? no Bleeding/clotting problems in family? no History of anemia in patient? no Sickle Cell issues in patient or family? N/A 10/26/2024 VTE Flowsheet Mobility Status: Any impaired mobility 48hrs post-operative 1 Surgery/procedure will require indwelling CVC or PICC > 48 hrs post-op 0 Personal History of Thrombosis (PE DVT) No First degree family member with history of thrombosis (PE DVT) No Chronic Medical Conditions (+1 if any present, regardless of conditions) 0 Acute Medical Conditions (+1 if present, regardless of number of conditions) 0 Medications (+1 for any of the medications listed) 1 Obesity: BMI >95th percentile for <18 years old, or BMI >35 for >/= 18 years old 1 Has the patient smoked in the last 30 days? 0 0 Pediatric VTE Risk Factor Total Score 3 REVIEW OF SYSTEMS: Comprehensive review of systems: History obtained from chart review and the patient. Psychological ROS: positive for - ADHD Musculoskeletal ROS: positive for - left knee pain A complete ROS was performed. Pertinent positives have been documented above or are in the HPI. All other systems were negative. Recent Illnesses? no HISTORY: Noncontributory No history on file. DEVELOPMENTAL HISTORY: Milestones: All met as expected IMMUNIZATIONS: Stated as up to date SOCIAL/FAMILY HISTORY: Roderick lives with self Special Needs: None Preferred Language: [place] Citizen School: employed Smoking/Alcohol/Drug Use or Exposure: none Family History Problem Relation Age of Onset Drug Use Mother Bipolar Disorder Mother Alcohol Use Mother Drug Use Father Alcohol Use Father Depression Maternal Aunt Mental Illness Maternal Aunt self harmed Anesth Problems Neg Hx Bleeding Problem Neg Hx VITAL SIGNS: Temp and weight obtained via home equipment/family during this Telehealth visit. Completed set of vital signs to be completed on the day of this procedure. Vitals: Unable to obtain weight and temperature today Ht Readings from Last 1 Encounters: 07/31/25 (!) 156.7 cm Wt Readings from Last 1 Encounters: 09/07/24 87.5 kg No height and weight on file for this encounter. SpO2 Readings from Last 3 Encounters: 09/05/21 96% 09/03/21 99% 05/21/21 98% PHYSICAL EXAM: Focused provider physical to be completed on the day of this procedure General: Patient appears alert, oriented appropriately for age and in no acute distress Head: atraumatic Neuro: alert, oriented appropriately for age Eyes: sclera and conjunctiva clear Ears: external ears normal Nose: nares patent without discharge Dentition: intact Throat: oropharynx is poorly visualized, mucous membranes are pink and moist without lesions Neck: there is full range of motion Chest: respirations appear even and unlabored Cardiac: deferred Abdomen: deferred Back: deferred : deferred Skin: appropriate for race, no cyanosis, overlying skin to left knee is unremarkable Lymphatic: deferred Musculoskeletal: moves all extremities DIAGNOSTIC STUDIES REVIEWED: The following lab results have been ordered/reviewed. HCG ordered for day of procedure Calcium Date Value Ref Range Status 01/06/2023 9.7 7.6 - 11.0 mg/dL Final Carbon Dioxide Date Value Ref Range Status 01/06/2023 24.0 22.0 - 29.0 mmol/L Final Chloride Date Value Ref Range Status 01/06/2023 103 96 - 108 mmol/L Final Creatinine Date Value Ref Range Status 01/06/2023 0.65 0.50 - 1.00 mg/dL Final Glucose Date Value Ref Range Status 01/06/2023 90 70 - 99 mg/dL Final Comment: Criteria for Diagnosis of Diabetes: Fasting Specimen (no caloric intake for at least 8 hours): <100 mg/dL Normal 100-125 mg/dL Increased risk for Diabetes >125 mg/dL Diagnostic for Diabetes Random Glucose (any time of day without regard to last meal): > or = 200 mg/dL plus Classic Symptoms of Diabetes Potassium Date Value Ref Range Status 01/06/2023 4.1 3.3 - 5.1 mmol/L Final Sodium Date Value Ref Range Status 01/06/2023 138 133 - 145 mmol/L Final BUN Date Value Ref Range Status 01/06/2023 16 4 - 19 mg/dL Final No results found for: RBC, RDW, WBC, HCT, HGB, MCH, MCHC, MCV, MPV, BASOPCT, EOSPCT, LYMPHOPCT, MONOPCT, NEUTOPHILPCT, CORRECTEDWBC, NEUTROPHIL, NRBC, PLTEST No results found for: HGB No results found for: APTT, INR No results found for: TSH, H9OWNWT, S0HIAXI, THYROIDAB HCG,Urine Date Value Ref Range Status 05/21/2021 Negative mIU/mL Final Comment: Non females and males-Negative females-Positive No results found for: HCGSERUM ASSESSMENT: Problem List[3] Roderick Duncan is a 19 y.o. female with ADHD and left knee pain. Based on this evaluation for surgical risk factors and review of necessary clinical studies (if indicated), she has no other past medical history or past surgical history that would impact this procedure. [facility] physical examination limited due to telehealth via video encounter. Pertinent and/or unperformed aspects of physical exam due to these limitations will be performed and/or addended by attending provider/anesthesia on day of surgery. Patient instructed to contact the surgery center/[facility] if any changes occur since this evaluation. PLAN: Surgery as scheduled Patient/family education Hemodynamic monitoring Respiratory monitoring Neurological monitoring Neurovascular monitoring -No contraindication to surgery based off history and physical exam. -HCG ordered for day of procedure -Educated patient that if patient develops viral illness, fever, requires unexpected breathing treatments or antibiotics or any other changes prior to surgery to notify the surgery center. -Educated patient to stop all herbals/multivitamins at least 7 days prior to procedure. Stop ibuprofen products at least 3 days prior to surgery. -Remove all piercings and nail mosotho/acrylics on the day of surgery -Pre-operative acetaminophen ordered- to be given upon arrival and after vital signs have been obtained. Parent educated on benefits of preop analgesia and agrees with administration prior to procedure -VTE screening completed - screening elevated - provider notified Care coordination: Mavis Ordaz DO(PCP) OTHER FINDINGS OR COMMENTS: Cc: MD Blanca Beckford, [employer]CH[employer]IC 10/26/2024 2:53 PM [1] Allergies Allergen Reactions Lactose Diarrhea [2] Outpatient Encounter Medications as of 10/26/2024 Medication Sig Dispense Refill ibuprofen (MOTRIN) 600 MG tablet Take 1 Tablet (600 mg) by mouth every 6 hours as needed for Pain Take with meals. 35 Tablet 1 Levonorgestrel (MIRENA, 52 MG, IU) 52 mg by Intrauterine route continuous [DISCONTINUED] Meloxicam (MOBIC) 15 MG TABS tablet Take 1 Tablet (15 mg) by mouth daily 30 Tablet 2 No facility-administered encounter medications on file as of 10/26/2024. [3] Patient Active Problem List Diagnosis ADHD (attention deficit hyperactivity disorder), combined type IUD (intrauterine device) in place Fibrosis of knee joint Left knee pain [facility] [place] 11-02-2024 History and physical note H&P reviewed, patient examined, no changes have occured since H&P completed. Source Note - Blanca Nunn APRN-CNP - 10/26/2024 8:00 AM EDT PRE-OP CONSULTATION This is a telemedicine video visit requested by the patient/guardian that was performed with the patient's location at home and the provider's location at office. DATE OF SERVICE: 10/26/2024 RN OFFICE PROVIDER: LG Shipley SURGICAL DIAGNOSIS: left knee pain Proposed surgery date: 11/02/2024 ([facility]) Proposed surgical procedure: arthroscopy left knee with debridement scar and possible partial meniscectomy Advice/opinion was requested by Yuri Koenig MD for pre-surgical consultation. CHIEF COMPLAINT: left knee pain HISTORY OF PRESENT ILLNESS: Roderick Duncan is a 19 y.o. female with a PMH significant for ADHD and left knee pain who is being consulted via telehealth/video for perioperative evaluation. Roderick had an ACL repair in 05/2021 and she recovered well. She reports ongoing left knee pain for the last year. There was no known injury. She rates her pain 7/10 and is not taking medication for pain. Roderick denies numbness and tingling. Patient was evaluated by orthopedics and it was determined that she would benefit from surgery. Roderick has been otherwise at her baseline state of health and has not had any recent illnesses. The history is provided by the patient and a chart review for evaluation for surgical risk factors. MEDICAL/SURGICAL HISTORY: Past Medical History: Diagnosis Date ACL laxity, left 05/14/2021 Added automatically from request for surgery [id number] Acute lateral meniscal injury of the knee, left, initial encounter 05/14/2021 ADHD (attention deficit hyperactivity disorder) Fractures New ACL tear, left, initial encounter 05/14/2021 Past Surgical History: Procedure Laterality Date ANTERIOR CRUCIATE LIGAMENT REPAIR Left 05/21/2021 Arthroscopic anterior cruciate ligament reconstruction left knee with autologous quadriceps tendon graft; Left all inside medial meniscal repair; Left partial lateral meniscectomy performed by Yuri Koenig MD at OR ANTERIOR CRUCIATE LIGAMENT REPAIR 05/21/2021 performed by Yuri Koenig MD at OR KNEE JOINT MANIPULATION Left 09/05/2021 Manipulation left knee under anesthesia performed by Yuri Koenig MD at [facility] OR [facility]THOPED[facility] SURGERY Past hospitalizations: yes - not in the last year DRUG/FOOD ALLERGIES: Allergies[1] MEDICATIONS: Encounter Medications[2] ANESTHESIA HISTORY: Difficulty with anesthesia? No Family history of difficulty with anesthesia? no Signs/symptoms of LAYLA? yes - snoring, no known apnea BLEEDING HISTORY: History of bleeding/clotting issues in patient? no Bleeding/clotting problems in family? no History of anemia in patient? no Sickle Cell issues in patient or family? N/A 10/26/2024 VTE Flowsheet Mobility Status: Any impaired mobility 48hrs post-operative 1 Surgery/procedure will require indwelling CVC or PICC > 48 hrs post-op 0 Personal History of Thrombosis (PE DVT) No First degree family member with history of thrombosis (PE DVT) No Chronic Medical Conditions (+1 if any present, regardless of conditions) 0 Acute Medical Conditions (+1 if present, regardless of number of conditions) 0 Medications (+1 for any of the medications listed) 1 Obesity: BMI >95th percentile for <18 years old, or BMI >35 for >/= 18 years old 1 Has the patient smoked in the last 30 days? 0 0 Pediatric VTE Risk Factor Total Score 3 REVIEW OF SYSTEMS: Comprehensive review of systems: History obtained from chart review and the patient. Psychological ROS: positive for - ADHD Musculoskeletal ROS: positive for - left knee pain A complete ROS was performed. Pertinent positives have been documented above or are in the HPI. All other systems were negative. Recent Illnesses? no HISTORY: Noncontributory No history on file. DEVELOPMENTAL HISTORY: Milestones: All met as expected IMMUNIZATIONS: Stated as up to date SOCIAL/FAMILY HISTORY: Roderick lives with self Special Needs: None Preferred Language: [place] Citizen School: employed Smoking/Alcohol/Drug Use or Exposure: none Family History Problem Relation Age of Onset Drug Use Mother Bipolar Disorder Mother Alcohol Use Mother Drug Use Father Alcohol Use Father Depression Maternal Aunt Mental Illness Maternal Aunt self harmed Anesth Problems Neg Hx Bleeding Problem Neg Hx VITAL SIGNS: Temp and weight obtained via home equipment/family during this Telehealth visit. Completed set of vital signs to be completed on the day of this procedure. Vitals: Unable to obtain weight and temperature today Ht Readings from Last 1 Encounters: 09/07/24 (!) 156.7 cm Wt Readings from Last 1 Encounters: 09/07/24 87.5 kg No height and weight on file for this encounter. SpO2 Readings from Last 3 Encounters: 09/05/21 96% 09/03/21 99% 05/21/21 98% PHYSICAL EXAM: Focused provider physical to be completed on the day of this procedure General: Patient appears alert, oriented appropriately for age and in no acute distress Head: atraumatic Neuro: alert, oriented appropriately for age Eyes: sclera and conjunctiva clear Ears: external ears normal Nose: nares patent without discharge Dentition: intact Throat: oropharynx is poorly visualized, mucous membranes are pink and moist without lesions Neck: there is full range of motion Chest: respirations appear even and unlabored Cardiac: deferred Abdomen: deferred Back: deferred : deferred Skin: appropriate for race, no cyanosis, overlying skin to left knee is unremarkable Lymphatic: deferred Musculoskeletal: moves all extremities DIAGNOSTIC STUDIES REVIEWED: The following lab results have been ordered/reviewed. HCG ordered for day of procedure Calcium Date Value Ref Range Status 01/06/2023 9.7 7.6 - 11.0 mg/dL Final Carbon Dioxide Date Value Ref Range Status 01/06/2023 24.0 22.0 - 29.0 mmol/L Final Chloride Date Value Ref Range Status 01/06/2023 103 96 - 108 mmol/L Final Creatinine Date Value Ref Range Status 01/06/2023 0.65 0.50 - 1.00 mg/dL Final Glucose Date Value Ref Range Status 01/06/2023 90 70 - 99 mg/dL Final Comment: Criteria for Diagnosis of Diabetes: Fasting Specimen (no caloric intake for at least 8 hours): <100 mg/dL Normal 100-125 mg/dL Increased risk for Diabetes >125 mg/dL Diagnostic for Diabetes Random Glucose (any time of day without regard to last meal): > or = 200 mg/dL plus Classic Symptoms of Diabetes Potassium Date Value Ref Range Status 01/06/2023 4.1 3.3 - 5.1 mmol/L Final Sodium Date Value Ref Range Status 01/06/2023 138 133 - 145 mmol/L Final BUN Date Value Ref Range Status 01/06/2023 16 4 - 19 mg/dL Final No results found for: RBC, RDW, WBC, HCT, HGB, MCH, MCHC, MCV, MPV, BASOPCT, EOSPCT, LYMPHOPCT, MONOPCT, NEUTOPHILPCT, CORRECTEDWBC, NEUTROPHIL, NRBC, PLTEST No results found for: HGB No results found for: APTT, INR No results found for: TSH, Q6EDZLB, O6ZPJGF, THYROIDAB HCG,Urine Date Value Ref Range Status 05/21/2021 Negative mIU/mL Final Comment: Non females and males-Negative females-Positive No results found for: HCGSERUM ASSESSMENT: Problem List[3] Roderick Duncan is a 19 y.o. female with ADHD and left knee pain. Based on this evaluation for surgical risk factors and review of necessary clinical studies (if indicated), she has no other past medical history or past surgical history that would impact this procedure. [facility] physical examination limited due to telehealth via video encounter. Pertinent and/or unperformed aspects of physical exam due to these limitations will be performed and/or addended by attending provider/anesthesia on day of surgery. Patient instructed to contact the surgery center/PSH if any changes occur since this evaluation. PLAN: Surgery as scheduled Patient/family education Hemodynamic monitoring Respiratory monitoring Neurological monitoring Neurovascular monitoring -No contraindication to surgery based off history and physical exam. -HCG ordered for day of procedure -Educated patient that if patient develops viral illness, fever, requires unexpected breathing treatments or antibiotics or any other changes prior to surgery to notify the surgery center. -Educated patient to stop all herbals/multivitamins at least 7 days prior to procedure. Stop ibuprofen products at least 3 days prior to surgery. -Remove all piercings and nail mosotho/acrylics on the day of surgery -Pre-operative acetaminophen ordered- to be given upon arrival and after vital signs have been obtained. Parent educated on benefits of preop analgesia and agrees with administration prior to procedure -VTE screening completed - screening elevated - provider notified Care coordination: Mavis Ordaz DO(PCP) OTHER FINDINGS OR COMMENTS: Cc: MD Blanca Beckford APRN-CNP 10/26/2024 2:53 PM [1] Allergies Allergen Reactions Lactose Diarrhea [2] Outpatient Encounter Medications as of 10/26/2024 Medication Sig Dispense Refill ibuprofen (MOTRIN) 600 MG tablet Take 1 Tablet (600 mg) by mouth every 6 hours as needed for Pain Take with meals. 35 Tablet 1 Levonorgestrel (MIRENA, 52 MG, IU) 52 mg by Intrauterine route continuous [DISCONTINUED] Meloxicam (MOBIC) 15 MG TABS tablet Take 1 Tablet (15 mg) by mouth daily 30 Tablet 2 No facility-administered encounter medications on file as of 10/26/2024. [3] Patient Active Problem List Diagnosis ADHD (attention deficit hyperactivity disorder), combined type IUD (intrauterine device) in place Fibrosis of knee joint Left knee pain documented in this encounter [facility] [place] 11-02-2024 Plan of care note Problem: Anxiety, Patient/Family Goal: Effective coping Outcome: Ongoing Problem: Body Temperature - Abnormal, Risk of Goal: Body temperature within specified parameters Outcome: Ongoing Problem: Nausea/Vomiting Goal: Post operative nausea and vomiting Outcome: Ongoing Problem: Gas Exchange - Impaired Goal: Absence of hypoxia Outcome: Ongoing Problem: Fluid Volume Imbalance, Risk of Goal: Absence of imbalanced fluid volume signs and symptoms Outcome: Ongoing Problem: Falls, Risk of Goal: Absence of falls Outcome: Ongoing Goal: Absence of physical injury Outcome: Ongoing Problem: Infection Risk, Surgical Site Goal: Absence of infection signs and symptoms Outcome: Ongoing Problem: Adverse Surgical Event, Risk of Goal: Absence of injury Outcome: Ongoing Problem: Pain - Acute Goal: Reduced pain sensation Outcome: Ongoing Problem: Transition Readiness Goal: Knowledge of discharge instructions Outcome: Ongoing Goal: Able to safely transition to next level of care Outcome: Ongoing [facility] [place] 10-26-2024 Miscellaneous Notes Physical Therapy Note Patient Name: Roderick Duncan Date of : 2005 Patient Age: 19 y.o. PT orders received and chart was reviewed. Patient reports that she has own crutches at home and knows how to use them on even ground and stairs. Deferred crutch training at this time. Patient inquiring about brace fitting. Informed patient that physical therapy does not fit braces pre-op. Instructed patient to contact orthopedics for brace fitting. No other PT needs at this time. Please re-consult PT if needs arise. Jeanette Hein PT,DPT 10/26/2024 documented in this encounter [facility] [place] 10-26-2024 Progress note Formatting of t his note might be different from the original. Physical Therapy Note Patient Name: Roderick Duncan Date of : 2005 Patient Age: 19 y.o. PT orders received and chart was reviewed. Patient reports that she has own crutches at home and knows how to use them on even ground and stairs. Deferred crutch training at this time. Patient inquiring about brace fitting. Informed patient that physical therapy does not fit braces pre-op. Instructed patient to contact orthopedics for brace fitting. No other PT needs at this time. Please re-consult PT if needs arise. Jeanette Hein PT,DPT 10/26/2024 [facility] [place] 10-26-2024 Note PRE-OP CONSULTATION This is a telemedicine video visit requested by the patient/guardian that was performed with the patient's location at home and the provider's location at office. DATE OF SERVICE: 10/26/2024 RN OFFICE PROVIDER: LG Shipley SURGICAL DIAGNOSIS: left knee pain Proposed surgery date: 11/02/2024 ([facility]) Proposed surgical procedure: arthroscopy left knee with debridement scar and possible partial meniscectomy Advice/opinion was requested by Yuri Koenig MD for pre-surgical consultation. CHIEF COMPLAINT: left knee pain HISTORY OF PRESENT ILLNESS: Roderick Duncan is a 19 y.o. female with a PMH significant for ADHD and left knee pain who is being consulted via telehealth/video for perioperative evaluation. Roderick had an ACL repair in 05/2021 and she recovered well. She reports ongoing left knee pain for the last year. There was no known injury. She rates her pain 7/10 and is not taking medication for pain. Roderick denies numbness and tingling. Patient was evaluated by orthopedics and it was determined that she would benefit from surgery. Roderick has been otherwise at her baseline state of health and has not had any recent illnesses. The history is provided by the patient and a chart review for evaluation for surgical risk factors. MEDICAL/SURGICAL HISTORY: Past Medical History: Diagnosis Date ACL laxity, left 05/14/2021 Added automatically from request for surgery [id number] Acute lateral meniscal injury of the knee, left, initial encounter 05/14/2021 ADHD (attention deficit hyperactivity disorder) Fractures New ACL tear, left, initial encounter 05/14/2021 Past Surgical History: Procedure Laterality Date ANTERIOR CRUCIATE LIGAMENT REPAIR Left 05/21/2021 Arthroscopic anterior cruciate ligament reconstruction left knee with autologous quadriceps tendon graft; Left all inside medial meniscal repair; Left partial lateral meniscectomy performed by Yuri Koenig MD at OR ANTERIOR CRUCIATE LIGAMENT REPAIR 05/21/2021 performed by Yuri Koenig MD at OR KNEE JOINT MANIPULATION Left 09/05/2021 Manipulation left knee under anesthesia performed by Yuri Koenig MD at [facility]THOPED[facility] SUR[facility]ERY Past hospitalizations: yes - not in the last year DRUG/FOOD ALLERGIES: Allergies[1] MEDICATIONS: Encounter Medications[2] ANESTHESIA HISTORY: Difficulty with anesthesia? No Family history of difficulty with anesthesia? no Signs/symptoms of LAYLA? yes - snoring, no known apnea BLEEDING HISTORY: History of bleeding/clotting issues in patient? no Bleeding/clotting problems in family? no History of anemia in patient? no Sickle Cell issues in patient or family? N/A 10/26/2024 VTE Flowsheet Mobility Status: Any impaired mobility 48hrs post-operative 1 Surgery/procedure will require indwelling CVC or PICC > 48 hrs post-op 0 Personal History of Thrombosis (PE DVT) No First degree family member with history of thrombosis (PE DVT) No Chronic Medical Conditions (+1 if any present, regardless of conditions) 0 Acute Medical Conditions (+1 if present, regardless of number of conditions) 0 Medications (+1 for any of the medications listed) 1 Obesity: BMI >95th percentile for <18 years old, or BMI >35 for >/= 18 years old 1 Has the patient smoked in the last 30 days? 0 0 Pediatric VTE Risk Factor Total Score 3 REVIEW OF SYSTEMS: Comprehensive review of systems: History obtained from chart review and the patient. Psychological ROS: positive for - ADHD Musculoskeletal ROS: positive for - left knee pain A complete ROS was performed. Pertinent positives have been documented above or are in the HPI. All other systems were negative. Recent Illnesses? no HISTORY: Noncontributory No history on file. DEVELOPMENTAL HISTORY: Milestones: All met as expected IMMUNIZATIONS: Stated as up to date SOCIAL/FAMILY HISTORY: Roderick lives with self Special Needs: None Preferred Language: [place] Citizen School: employed Smoking/Alcohol/Drug Use or Exposure: none Family History Problem Relation Age of Onset Drug Use Mother Bipolar Disorder Mother Alcohol Use Mother Drug Use Father Alcohol Use Father Depression Maternal Aunt Mental Illness Maternal Aunt self harmed Anesth Problems Neg Hx Bleeding Problem Neg Hx VITAL SIGNS: Temp and weight obtained via home equipment/family during this Telehealth visit. Completed set of vital signs to be completed on the day of this procedure. Vitals: Unable to obtain weight and temperature today Ht Readings from Last 1 Encounters: 09/07/24 (!) 156.7 cm Wt Readings from Last 1 Encounters: 09/07/24 87.5 kg No height and weight on file for this encounter. SpO2 Readings from Last 3 Encounters: 09/05/21 96% 09/03/21 99% 05/21/21 98% PHYSICAL EXAM: Focused provider physical to be completed on the day of this procedure General: Patient appears alert, oriented appropriately for age and (more content not included)... [facility] [place] 01-03-2024 History of Present illness Narrative Images from the original note were not included. [facility] [id number] [place] [address] Dept: [phone] Dept Chief Complaint Patient presents with New Patient Ankle Pain right Subjective History of Present Illness: Roderick Duncan is a 18 y.o. female who presents today for evaluation of right ankle pain. Location: lateral and medial Onset: 1 week Injury: yes - she tripped down stairs. Work related? no Quality: throbbing and sharp Mechanical symptoms: popping, crepitus, grinding, catching, and locking Radiation of symptoms: yes - into the top of her foot Severity: 3/10 at rest and 8/10 at worst Exacerbating factor(s): walking, prolonged standing, climbing/descending stairs, and walking without the boot Relieving factor(s): boot and elevation Timing: all day Imaging to date: X-ray December 2023 Treatment to date: PT/OT/HEP: no Ice: yes, helpful Heat: yes, helpful Medications: Tylenol: no NSAIDs: no Oral steroids: no Muscle relaxants: no Nerve medications: no Targeted injections: none Assistive devices: none Prior surgery: no 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 Respiratory: Breathing comfortably on room air. No respiratory distress. Skin: Warm, dry, intact. No visible rashes or erythema overlying area of focused exam. Physical Exam Musculoskeletal: Right ankle: Swelling present. No deformity or ecchymosis. Tenderness present over the lateral malleolus and ATF ligament. No medial malleolus, base of 5th metatarsal or proximal fibula tenderness. Decreased range of motion. External Notes No pertinent interval updates Labs No results found for: HGBA1C No results found for: CREATININE Imaging Images reviewed with patient today I have personally reviewed the images pertinent to the appointment today EMG/NCT No interval studies Procedure No procedures completed today Assessment Diagnosis Plan 1. Acute right ankle pain XR ankle 3+ views right 2. Sprain of right ankle, initial encounter [facility] Orthopedics Sports Medicine Plan -Discussed with the patient the nature of ankle sprains. -Discussed ankle imaging results with patient. -Discussed treatment modalities including RICE, WBAT, protection from repeat injury, PT/rehab. -Wear walking boot until ankle to ambulate virtually pain-free then transition into the lace up ankle brace. -Provided lace-up ankle brace to be worn during sports or aggressive activities until able to balance on an unstable surface consistently for 60 seconds. -RTP allowable when has full ROM, strength, proprioception vs contralateral side and can run & cut full speed. -Questions answered. -Written patient information provided in the AVS. -Will prescribe home exercise program starting with ABCs and culminating in unstable proprioception exercises. No follow-ups on file. Opal Govea MD 01/03/2024 9:16 AM Please note that portions of this note may have been completed with voice recognition software. Documentation reviewed prior to signing but minor errors in retail assistant manager may have occurred. documented in this encounter [facility] 01-03-2024 Instructions Opal Govea MD - 01/03/2024 9:30 AM EST Images from the original note were not included. Continue to elevate, jose wrap and do the alphabet range of motion exercises until you can ambulate without pain. Wear the ankle brace in and out of the house for the next 4-6 weeks as needed for comfort. Progress to the strengthening and balancing exercises as soon as you can (ankle handout). Discussed at length the return to play and the progression from walk to jog, run, sprint, cut before full return to sport. Continue to wear the brace, or tape for support for the next 4-8 weeks for your sport or strenuous activities. Ankle Sprain: Rehab Exercises EARLY Alphabet exercise Trace the alphabet with your toe, make the letters as large as tolerated. This helps your ankle move in all directions. Do this exercise several times a day. MIDDLE Towel curl While sitting, place your foot on a towel on the floor. Scrunch the towel toward you with your toes. Then use your toes to push the towel away from you. To make this exercise more challenging you can put something on the other end of the towel. A can of soup is about the right weight for this. Ankle strengthening exercise all 4 directions Use a band or another object for resistance. Use a fixed object or tie the ends of an exercise band together to form a loop. Attach one end of the loop to a secure object or shut a door on it to hold it in place. While sitting on the floor or in a chair, loop the other end of the band over the top of your affected foot. Keeping your knee and leg straight, slowly flex your foot to pull back, pull to inside, pull to the outside on the exercise band, and then slowly relax. Remember band work is always slow in both directions. Repeat 8 to 12 times. LATE (the most important) Single-leg balance Stand on a flat surface with your arms stretched out to your sides like you are making the letter T. Then lift your good leg off the floor, bending it at the knee. If you are not steady on your feet, use one hand to hold on to a chair, counter, or wall. Standing on the leg with your affected ankle, keep that knee straight. Try to balance on that leg for up to 60 seconds. Then rest for up to 10 seconds. Repeat several times. When you can balance on your affected leg for 60 seconds with your eyes open, try to balance on it with your eyes closed. When you can do this exercise with your eyes closed for 60 seconds and with ease and no pain, try standing on a pillow or piece of foam, and repeat steps 1 through Once you can stand on the flat floor for 60 seconds consistently he will likely not need to wear the ankle brace for day-to-day activities When you can stand on the unstable surface for 60 seconds consistently he will likely not need to wear the ankle brace for athletic and high stress activities. As you return to sport you will progress through the steps of walking, jogging, running, sprinting, and cutting. When you are able to do all of those things you can return to sport with an ankle brace. When you have complete and full balance and strength you no longer have to wear the brace for protection from another ankle sprain. documented in this encounter [facility] 12-26-2023 Emergency department Note EMERGENCY DEPARTMENT ENCOUNTER Pt Name: Roderick Duncan Birthdate 2005 Date of evaluation: 12/26/2023 ED Provider: Sabas Tran MD CHIEF COMPLAINT Chief Complaint Patient presents with Ankle Pain HISTORY OF PRESENT ILLNESS (Location/Symptom, Timing/Onset, Context/Setting, Quality, Duration, Modifying Factors, Severity) Note limiting factors. I wore appropriate PPE for the entirety of this encounter. HPI Roderick Duncan is a 18 y.o. female who presents to the emergency department with chief complaint of right ankle pain. Patient states she was walking earlier this morning and slipped and inverted her right ankle and suffered severe pain in the lateral aspect of her right ankle. Hurts to weight-bear. Complains of moderate swelling on the lateral malleolus. Denies knee pain. Denies numbness or tingling. Denies other injuries or other complaints Nursing Notes were reviewed. Limitations to history: None Outside historians: EMS REVIEW OF SYSTEMS Review of Systems: Pertinent positives as above per history of present illness. Other systems reviewed and found to be negative to a total of 6 systems reviewed. PAST MEDICAL HISTORY History reviewed. No pertinent past medical history. SURGICAL HISTORY History reviewed. No pertinent surgical history. CURRENT MEDICATIONS Previous Medications No medications on file ALLERGIES Patient has no known allergies. FAMILY HISTORY No family history on file. SOCIAL HISTORY Social History Socioeconomic History Marital status: Single Tobacco Use Smoking status: Never Smokeless tobacco: Never Vaping Use Vaping status: Never Used Substance and Sexual Activity Drug use: Never SCREENINGS PHYSICAL EXAM ED Triage Vitals [12/26/23 0722] Temp Heart Rate Resp BP 36.7 C (98 F) 80 16 133/80 SpO2 Temp Source Heart Rate Source Patient Position 100 % Oral Monitor -- BP Location FiO2 (%) -- -- Physical Exam: Vital signs reviewed in nurse's notes. Patient is nontoxic in appearance. No respiratory distress. Head: Normocephalic, atraumatic Eyes: Pupils are equal, round and reactive to light. ENT: Mucous membranes moist. Neck: No tenderness or stiffness. Lungs: Clear to auscultation bilaterally. No wheezing rales or rhonchi. Heart: Regular rate and rhythm. No audible murmur or gallop. Extremities: No gross deformity. Patient has tenderness and swelling over the lateral malleolus of the right ankle. No medial malleolus tenderness. No foot or fifth metatarsal tenderness. The Achilles tendon is intact. Delvalle test is negative for Achilles tendon rupture. No near fibular head tenderness. No obvious joint swelling otherwise. No calf tenderness. Good distal pulses in bilateral lower extremities. Neurologic: Alert and fully oriented. No focal motor, sensory deficits in bilateral lower extremities. DIAGNOSTIC RESULTS RADIOLOGY (Per Emergency Physician): Right ankle x-ray shows no fracture or dislocation. Interpreted by this examiner. Interpretation per the Radiologist below, if available at the time of this note: XR ankle 3+ views right Final Result Soft tissue swelling without an acute osseous abnormality identified. Report Dictated on Electronically Signed By: Emiliano Aldana MD Electronically Signed Date/Time: 12/26/2023 7:51 AM EST EMERGENCY DEPARTMENT COURSE and DIFFERENTIAL DIAGNOSIS/MDM: Vitals: Vitals: 12/26/23721 BP: 133/80 Pulse: 80 Resp: 16 Temp: 36.7 C (98 F) TempSrc: Oral SpO2: 100% Weight: 86.2 kg (190 lb) Height: 1.549 m (5' 1) Patient is soft tissue swelling consistent with ankle sprain and no obvious bony fracture. I do feel she can follow-up as an outpatient. Recommend rest ice elevation anti-inflammatory medicine. She is given a walking boot. She is given referral to sports medicine. There is no signs of acute vascular insufficiency. The patient presented with chief complaint of ankle injury. The differential diagnosis associated with this patient's presentation includes ankle sprain, ankle fracture, Achilles tendon injury, foot fracture. Our workup consisted of ordering/reviewing: X-ray right ankle. To aid in management, I performed an independent interpretation of Xray(s) x-ray right ankle as above. The patient will be Discharged. Patient is in agreement with this plan. Medications ibuprofen tablet 800 mg (800 mg Oral Given 12/26/23 0748) REVAL: I personally supervised and inspected the orthotic boot placed by nursing staff. The extremity is appropriately immobilized. On my exam, the patient is neurovascularly intact both before and after the application. PROCEDURES: Unless otherwise noted below, none Procedures Patients symptoms are consistent with sepsis, severe sepsis, or septic shock (If yes use .sepsiscoremeasure): no FINAL IMPRESSION 1. Sprain of right ankle, initial encounter DISPOSITION Discharge 12/26/2023 08:08:02 AM PATIENT REFERRED TO: [facility] [place] [address] [place] [address] [address] [place] [address] DISCHARGE MEDICATIONS: New Prescriptions IBUPROFEN 800 MG TABLET Take 1 tablet (800 mg) by mouth 3 times daily for 7 days. (Comment: Please note this report has been produced using speech recognition software and may contain errors related to that system including errors in grammar, punctuation, and spelling, as well as words and phrases that may be inappropriate. If there are any questions or concerns please feel free to contact the dictating provider for clarification.) Sabas Tran MD (electronically signed) Emergency Medicine Provider Sabas Tran MD 12/26/23 0809 Sabas Tran MD 12/26/23 0841 Patient to room 7 with c/o right ankle pain. Patient was walking down steps and her ankle twisted this morning. V/S obtained, call light within reach. documented in this encounter [facility] 12-26-2023 Emergency department Triage note Patient to room 7 with c/o right ankle pain. Patient was walking down steps and her ankle twisted this morning. V/S obtained, call light within reach. [facility] 12-26-2023 Physician Emergency department Note EMERGENCY DEPARTMENT ENCOUNTER Pt Name: Roderick Duncan Birthdate 2005 Date of evaluation: 12/26/2023 ED Provider: Sabas Tran MD CHIEF COMPLAINT Chief Complaint Patient presents with Ankle Pain HISTORY OF PRESENT ILLNESS (Location/Symptom, Timing/Onset, Context/Setting, Quality, Duration, Modifying Factors, Severity) Note limiting factors. I wore appropriate PPE for the entirety of this encounter. TANVI Duncan is a 18 y.o. female who presents to the emergency department with chief complaint of right ankle pain. Patient states she was walking earlier this morning and slipped and inverted her right ankle and suffered severe pain in the lateral aspect of her right ankle. Hurts to weight-bear. Complains of moderate swelling on the lateral malleolus. Denies knee pain. Denies numbness or tingling. Denies other injuries or other complaints Nursing Notes were reviewed. Limitations to history: None Outside historians: EMS REVIEW OF SYSTEMS Review of Systems: Pertinent positives as above per history of present illness. Other systems reviewed and found to be negative to a total of 6 systems reviewed. PAST MEDICAL HISTORY History reviewed. No pertinent past medical history. SURGICAL HISTORY History reviewed. No pertinent surgical history. CURRENT MEDICATIONS Previous Medications No medications on file ALLERGIES Patient has no known allergies. FAMILY HISTORY No family history on file. SOCIAL HISTORY Social History Socioeconomic History Marital status: Single Tobacco Use Smoking status: Never Smokeless tobacco: Never Vaping Use Vaping status: Never Used Substance and Sexual Activity Drug use: Never SCREENINGS PHYSICAL EXAM ED Triage Vitals [12/26/23 0722] Temp Heart Rate Resp BP 36.7 C (98 F) 80 16 133/80 SpO2 Temp Source Heart Rate Source Patient Position 100 % Oral Monitor -- BP Location FiO2 (%) -- -- Physical Exam: Vital signs reviewed in nurse's notes. Patient is nontoxic in appearance. No respiratory distress. Head: Normocephalic, atraumatic Eyes: Pupils are equal, round and reactive to light. ENT: Mucous membranes moist. Neck: No tenderness or stiffness. Lungs: Clear to auscultation bilaterally. No wheezing rales or rhonchi. Heart: Regular rate and rhythm. No audible murmur or gallop. Extremities: No gross deformity. Patient has tenderness and swelling over the lateral malleolus of the right ankle. No medial malleolus tenderness. No foot or fifth metatarsal tenderness. The Achilles tendon is intact. Delvalle test is negative for Achilles tendon rupture. No near fibular head tenderness. No obvious joint swelling otherwise. No calf tenderness. Good distal pulses in bilateral lower extremities. Neurologic: Alert and fully oriented. No focal motor, sensory deficits in bilateral lower extremities. DIAGNOSTIC RESULTS RADIOLOGY (Per Emergency Physician): Right ankle x-ray shows no fracture or dislocation. Interpreted by this examiner. Interpretation per the Radiologist below, if available at the time of this note: XR ankle 3+ views right Final Result Soft tissue swelling without an acute osseous abnormality identified. Report Dictated on Electronically Signed By: Emiliano Aldana MD Electronically Signed Date/Time: 12/26/2023 7:51 AM EST EMERGENCY DEPARTMENT COURSE and DIFFERENTIAL DIAGNOSIS/MDM: Vitals: Vitals: 12/26/2322 BP: 133/80 Pulse: 80 Resp: 16 Temp: 36.7 C (98 F) TempSrc: Oral SpO2: 100% Weight: 86.2 kg (190 lb) Height: 1.549 m (5' 1) Patient is soft tissue swelling consistent with ankle sprain and no obvious bony fracture. I do feel she can follow-up as an outpatient. Recommend rest ice elevation anti-inflammatory medicine. She is given a walking boot. She is given referral to sports medicine. There is no signs of acute vascular insufficiency. The patient presented with chief complaint of ankle injury. The differential diagnosis associated with this patient's presentation includes ankle sprain, ankle fracture, Achilles tendon injury, foot fracture. Our workup consisted of ordering/reviewing: X-ray right ankle. To aid in management, I performed an independent interpretation of Xray(s) x-ray right ankle as above. The patient will be Discharged. Patient is in agreement with this plan. Medications ibuprofen tablet 800 mg (800 mg Oral Given 12/26/23 0748) REVAL: I personally supervised and inspected the orthotic boot placed by nursing staff. The extremity is appropriately immobilized. On my exam, the patient is neurovascularly intact both before and after the application. PROCEDURES: Unless otherwise noted below, none Procedures Patients symptoms are consistent with sepsis, severe sepsis, or septic shock (If yes use .sepsiscoremeasure): no FINAL IMPRESSION 1. Sprain of right ankle, initial encounter DISPOSITION Discharge 12/26/2023 08:08:02 AM PATIENT REFERRED TO: [facility] [place] [address] [place] [address] [address] [place] [address] DISCHARGE MEDICATIONS: New Prescriptions IBUPROFEN 800 MG TABLET Take 1 tablet (800 mg) by mouth 3 times daily for 7 days. (Comment: Please note this report has been produced using speech recognition software and may contain errors related to that system including errors in grammar, punctuation, and spelling, as well as words and phrases that may be inappropriate. If there are any questions or concerns please feel free to contact the dictating provider for clarification.) Sabas Tran MD (electronically signed) Emergency Medicine Provider Sabas Tran MD 12/26/23 0809 Sabas Tran MD 12/26/23 0841 [facility] 10-26-2023 Note PROCEDURE: KNEE 4 OR MORE VIEWS LEFT CLINICAL HISTORY: Left knee pain COMPARISON: None. FINDINGS: Normal alignment. ACL graft is in place. There is no soft tissue swelling or joint effusion. The osseous structures appear normal. Patella appears normal on the axial view. [facility] 07-18-2023 Note HNO ID: [id number] Author: WENDY PENDLETON PA-C Service: ? Author Type: Physician [employer] Senior Sergeant Type: Progress Notes Filed: 07/18/2023 09:05 Note Text: This note was created using NoteWriter. Subjective Roderick Duncan is a 17 year old female. HPI Patient presents with a chief complaint of bilateral ear pain, cough, sore throat over the past 4 days. She states she is coughing more because her throat hurts and is dry. She has had some mild shortness of breath. She denies history of asthma. No fever. No vomiting or diarrhea. She denies body aches or chills. She has been using Mucinex [id number]. Her mom was sick with similar symptoms recently. Review of Systems Constitutional: Positive for fatigue. Negative for fever. HENT: Positive for congestion, ear pain, rhinorrhea and sore throat. Negative for ear discharge. Respiratory: Positive for cough and shortness of breath. Negative for wheezing. Cardiovascular: Negative. Gastrointestinal: Negative. Genitourinary: Negative. [...] daily. (Patient not taking: Reported on 01/26/2023) 30 tablet 0 methylphenidate ER 54 mg CR tablet Take 1 tablet by mouth once daily. (Patient not taking: Reported on 01/26/2023) 30 tablet 0 Pedi MVI No.17 with [...] status: Never Smokeless tobacco: Never Objective BP 118/66 Pulse 74 Temp 36.2 ?C (97.2 ?F) Resp 16 Wt 90.5 kg (199 lb 8.3 oz) LMP 01/26/2023 SpO2 97% BMI 37.70 kg/m? Physical Exam Vitals reviewed. Constitutional: Appearance: Normal appearance. HENT: Head: Normocephalic and atraumatic. Right Ear: Tympanic membrane, ear canal and external ear normal. Left Ear: Tympanic membrane, ear canal and external ear normal. Nose: Congestion present. Mouth/Throat: Mouth: Mucous membranes are moist. Pharynx: Posterior oropharyngeal erythema present. No pharyngeal swelling, oropharyngeal exudate or uvula swelling. Tonsils: No tonsillar exudate or tonsillar abscesses. Cardiovascular: Rate and Rhythm: Normal rate and regular rhythm. Heart sounds: Normal heart sounds. Pulmonary: Effort: Pulmonary effort is normal. Breath sounds: Normal breath sounds. Musculoskeletal: Cervical back: Neck supple. Lymphadenopathy: Cervical: No cervical adenopathy. Skin: General: Skin is warm and dry. Findings: No rash. Neurological: General: No focal deficit present. Mental Status: She is alert and oriented to person, place, and time. Assessment and Plan ASSESSMENT/PLAN: 1. Acute URI - ICD9: 465.9, ICD10: J06.9 - Discussed viral etiology and rationale for treatment. - Group A strep molecular testing negative - Symptomatic treatment with prn analgesia - Supportive care with fluids and rest - The patient may also use OTC cough and cold meds as needed and warm salt water gargles, throat lozenges and/or OTC throat spray as needed. - Follow up in 3-5 days if symptoms persist or sooner if worsening of symptoms - STREP A MOLECULAR (POC) Wendy Pendleton PA-C [facility] 07-18-2023 History of Present illness Narrative This note was created using [employer]. Subjective Roderick Duncan is a 17 year old female. HPI Patient presents with a chief complaint of bilateral ear pain, cough, sore throat over the past 4 days. She states she is coughing more because her throat hurts and is dry. She has had some mild shortness of breath. She denies history of asthma. No fever. No vomiting or diarrhea. She denies body aches or chills. She has been using Mucinex [id number]. Her mom was sick with similar symptoms recently. Review of Systems Constitutional: Positive for fatigue. Negative for fever. HENT: Positive for congestion, ear pain, rhinorrhea and sore throat. Negative for ear discharge. Respiratory: Positive for cough and shortness of breath. Negative for wheezing. Cardiovascular: Negative. Gastrointestinal: Negative. Genitourinary: Negative. [...] daily. (Patient not taking: Reported on 01/26/2023) 30 tablet 0 methylphenidate ER 54 mg CR tablet Take 1 tablet by mouth once daily. (Patient not taking: Reported on 01/26/2023) 30 tablet 0 Pedi MVI No.17 with [...] status: Never Smokeless tobacco: Never Objective BP 118/66 Pulse 74 Temp 36.2 C (97.2 F) Resp 16 Wt 90.5 kg (199 lb 8.3 oz) LMP 01/26/2023 SpO2 97% BMI 37.70 kg/m Physical Exam Vitals reviewed. Constitutional: Appearance: Normal appearance. HENT: Head: Normocephalic and atraumatic. Right Ear: Tympanic membrane, ear canal and external ear normal. Left Ear: Tympanic membrane, ear canal and external ear normal. Nose: Congestion present. Mouth/Throat: Mouth: Mucous membranes are moist. Pharynx: Posterior oropharyngeal erythema present. No pharyngeal swelling, oropharyngeal exudate or uvula swelling. Tonsils: No tonsillar exudate or tonsillar abscesses. Cardiovascular: Rate and Rhythm: Normal rate and regular rhythm. Heart sounds: Normal heart sounds. Pulmonary: Effort: Pulmonary effort is normal. Breath sounds: Normal breath sounds. Musculoskeletal: Cervical back: Neck supple. Lymphadenopathy: Cervical: No cervical adenopathy. Skin: General: Skin is warm and dry. Findings: No rash. Neurological: General: No focal deficit present. Mental Status: She is alert and oriented to person, place, and time. Assessment and Plan ASSESSMENT/PLAN: 1. Acute URI - ICD9: 465.9, ICD10: J06.9 - Discussed viral etiology and rationale for treatment. - Group A strep molecular testing negative - Symptomatic treatment with prn analgesia - Supportive care with fluids and rest - The patient may also use OTC cough and cold meds as needed and warm salt water gargles, throat lozenges and/or OTC throat spray as needed. - Follow up in 3-5 days if symptoms persist or sooner if worsening of symptoms - STREP A MOLECULAR (POC) Wendy Pendleton PA-C documented in this encounter [facility] 07-18-2023 Instructions Wendy Pendleton PA-C - 07/18/2023 8:59 AM EDT Flonase Continue Mucinex May add ibuprofen and throat lozenges(Cepacol of Chloraseptic) If you develop a fever, or not feeling better after 7-10 days of symptoms be seen again. documented in this encounter [facility] 05-19-2023 Instructions Jeffry Bernard PA - 05/19/2023 2:38 PM EDT R.I.C.E. The general care of your injury includes the following: Resting, Icing, Compressing and Elevating the injured area. Remember this as RICE. REST: Limit the use of the injured body part. ICE: By applying ice to the affected area, swelling and pain can be reduced. Place some ice cubes in a re-sealable (Ziploc) bag and add some water. Put a thin washcloth between the bag and your skin. Apply the ice bag to the area for at least 20 minutes. Do this at least 4 times per day. Using the ice for longer times and more frequently is OK. NEVER APPLY ICE DIRECTLY TO THE SKIN. COMPRESS: Compression means to apply pressure around the injured area such as with a splint, cast or an jose bandage. Compression decreases swelling and improves comfort. Compression should be tight enough to relieve swelling but not so tight as to decrease circulation. Increasing pain, numbness, tingling, or change in skin color, are all signs of decreased circulation. ELEVATE: Elevate the injured part. For example, elevate your foot by placing it on a chair while sitting, or propping it up on pillows when lying down. documented in this encounter [facility] 05-19-2023 History of Present illness Narrative Radiology Service Progress Note PATIENT NAME: Roderick Duncan DATE OF SERVICE: May 19, 2023 TIME: 2:21 PM PATIENT IDENTITY VERIFICATION COMPLETED USING TWO (2) IDENTIFIERS: Name and Date of confirmed by patient verbally. FALL SCREENING: Has the patient had 2 falls in the last year or 1 fall with injury or currently using an Ambulatory Assistive Device (Walker, Cane, Wheelchair, Crutches, etc.)? No PATIENT GENDER DATA: Female. status: : No status: NO. PATIENT RELEVANT IMPLANT DATA REVIEWED: Yes PATIENT PRESENTS WITH AN IMPLANTABLE OR ATTACHED TAX COMPLIANCE REPRESENTATIVE: No RADIOLOGY DEPARTMENT: General X-ray: Exam(s) Completed: Upper Extremity X-Ray(s): Wrist, left and Hand, left PERIPHERAL IV DATA: Not applicable SIGNED BY: KIM Harmon) May 19, 2023 2:21 PM documented in this encounter [facility] 05-19-2023 Note HNO ID: [id number] Author: MARGIE DELVALLE RT(R) Service: Radiology Author Type: Technologist Type: Progress Notes Filed: 05/19/2023 14:31 Note Text: Radiology Service Progress Note PATIENT NAME: Roderick Duncan DATE OF SERVICE: May 19, 2023 TIME: 2:21 PM PATIENT IDENTITY VERIFICATION COMPLETED USING TWO (2) IDENTIFIERS: Name and Date of confirmed by patient verbally. FALL SCREENING: Has the patient had 2 falls in the last year or 1 fall with injury or currently using an Ambulatory Assistive Device (Walker, Cane, Wheelchair, Crutches, etc.)? No PATIENT GENDER DATA: Female. status: : No status: NO. PATIENT RELEVANT IMPLANT DATA REVIEWED: Yes PATIENT PRESENTS WITH AN IMPLANTABLE OR ATTACHED TAX COMPLIANCE REPRESENTATIVE: No RADIOLOGY DEPARTMENT: General X-ray: Exam(s) Completed: Upper Extremity X-Ray(s): Wrist, left and Hand, left PERIPHERAL IV DATA: Not applicable SIGNED BY: RT Faustino(R) May 19, 2023 2:21 PM [facility] 05-19-2023 Note HNO ID: [id number] Author: JEFFRY BERNARD PA Service: ? Author Type: Physician [employer] Senior Sergeant Type: Progress Notes Filed: 05/19/2023 14:40 Note Text: This note was created using [employer]. Subjective Roderick Duncan is a 17 year old female. HPI 17-year-old female presents for left wrist/hand pain. 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 She states that she constantly does a twisting motion of her hands while at work. She states that on Wednesday she was putting a park together and felt some increased pain in her left wrist and thumb. She points to her left thumb area and left radial wrist. She states that the back of her hand also hurts. Pain worse with movement. No numbness or tingling in the fingers. She denies ever injuring this hand or wrist in the past. She is right-hand dominant. PAST MEDICAL HISTORY Diagnosis Date NEGATIVE MEDICAL HISTORY normal color vision Post traumatic stress disorder Wrist fracture, right 07/2012 cast--fell from horse PAST SURGICAL HISTORY Procedure Laterality Date NONE ALLERGIES Patient has no known allergies. MEDICATIONS methylphenidate (RITALIN) 20 mg tablet 1 1/2 [...] Use Smoking status: Never Smokeless tobacco: Never Review of Systems Constitutional: Negative for chills and fever. HENT: Negative for congestion, ear pain and sore throat. Respiratory: Negative for cough and shortness of breath. Cardiovascular: Negative for chest pain. Gastrointestinal: Negative for diarrhea and vomiting. Musculoskeletal: Positive for arthralgias. Objective BP 118/66 Pulse 72 Temp 36.2 ?C (97.1 ?F) Resp 16 Wt 88.6 kg (195 lb 5.2 oz) LMP 01/26/2023 SpO2 98% BMI 36.91 kg/m? Physical Exam Vitals and nursing note reviewed. Constitutional: General: She is not in acute distress. Appearance: Normal appearance. She is not toxic-appearing. Musculoskeletal: Left wrist: Tenderness and bony tenderness present. No swelling, deformity, snuff box tenderness or crepitus. Normal pulse. Left hand: Tenderness and bony tenderness present. No swelling or deformity. Normal range of motion. Normal sensation. There is no disruption of two-point discrimination. Normal capillary refill. Normal pulse. Comments: Patient has tenderness over left dorsal hand and left thumb. She has some mild left radial wrist tenderness. Positive Cody's test. No snuffbox tenderness. Normal sensation all digits left hand. 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 Radial pulse 2+. Cap refill less than 2 seconds. Skin: General: Skin is warm and dry. Neurological: Mental Status: She is alert. Sensory: No sensory deficit. Assessment and Plan ASSESSMENT/PLAN: 1. Left hand pain - ICD9: 729.5, ICD10: M79.642 - XR HAND GENERAL 3V PA/LAT/OBL LEFT - XR WRIST INJURY 4V PA/LAT/OBL/SCAPH LEFT -XR revealed no acute abnormality. -Suspect possible tendinitis from overuse. Recommend rest, ice. -Tylenol/Motrin as needed for pain. -Follow-up with occupational health/Worker's Comp. physician. Diagnosis and treatment plan were discussed and questions were answered to the patient's satisfaction. Pt acknowledged understanding of concepts and follow up plan. Specific signs and symptoms that would indicate the need for higher level of care were discussed in detail warranting prompt ER evaluation. LENORA Santiago [facility] 05-19-2023 History of Present illness Narrative This note was created using [employer]. Subjective Roderick Duncan is a 17 year old female. HPI 17-year-old female presents for left wrist/hand pain. 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 She states that she constantly does a twisting motion of her hands while at work. She states that on Wednesday she was putting a park together and felt some increased pain in her left wrist and thumb. She points to her left thumb area and left radial wrist. She states that the back of her hand also hurts. Pain worse with movement. No numbness or tingling in the fingers. She denies ever injuring this hand or wrist in the past. She is right-hand dominant. PAST MEDICAL HISTORY Diagnosis Date NEGATIVE MEDICAL HISTORY normal color vision Post traumatic stress disorder Wrist fracture, right 07/2012 cast--fell from horse PAST SURGICAL HISTORY Procedure Laterality Date NONE ALLERGIES Patient has no known allergies. MEDICATIONS methylphenidate (RITALIN) 20 mg tablet 1 1/2 [...] Use Smoking status: Never Smokeless tobacco: Never Review of Systems Constitutional: Negative for chills and fever. HENT: Negative for congestion, ear pain and sore throat. Respiratory: Negative for cough and shortness of breath. Cardiovascular: Negative for chest pain. Gastrointestinal: Negative for diarrhea and vomiting. Musculoskeletal: Positive for arthralgias. Objective BP 118/66 Pulse 72 Temp 36.2 C (97.1 F) Resp 16 Wt 88.6 kg (195 lb 5.2 oz) LMP 01/26/2023 SpO2 98% BMI 36.91 kg/m Physical Exam Vitals and nursing note reviewed. Constitutional: General: She is not in acute distress. Appearance: Normal appearance. She is not toxic-appearing. Musculoskeletal: Left wrist: Tenderness and bony tenderness present. No swelling, deformity, snuff box tenderness or crepitus. Normal pulse. Left hand: Tenderness and bony tenderness present. No swelling or deformity. Normal range of motion. Normal sensation. There is no disruption of two-point discrimination. Normal capillary refill. Normal pulse. Comments: Patient has tenderness over left dorsal hand and left thumb. She has some mild left radial wrist tenderness. Positive Cody's test. No snuffbox tenderness. Normal sensation all digits left hand. 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 Radial pulse 2+. Cap refill less than 2 seconds. Skin: General: Skin is warm and dry. Neurological: Mental Status: She is alert. Sensory: No sensory deficit. Assessment and Plan ASSESSMENT/PLAN: 1. Left hand pain - ICD9: 729.5, ICD10: M79.642 - XR HAND GENERAL 3V PA/LAT/OBL LEFT - XR WRIST INJURY 4V PA/LAT/OBL/SCAPH LEFT -XR revealed no acute abnormality. -Suspect possible tendinitis from overuse. Recommend rest, ice. -Tylenol/Motrin as needed for pain. -Follow-up with occupational health/Worker's Comp. physician. Diagnosis and treatment plan were discussed and questions were answered to the patient's satisfaction. Pt acknowledged understanding of concepts and follow up plan. Specific signs and symptoms that would indicate the need for higher level of care were discussed in detail warranting prompt ER evaluation. LENORA Santiago documented in this encounter [facility] 01-26-2023 Note HNO ID: [id number] Author: Ella Rodriguez APRN.[employer] Service: ? Author Type: Nurse Practitioner Type: Progress Notes Filed: 01/26/2023 2:20 PM Note Text: Subjective Ear Pain Associated symptoms include congestion, coughing, headaches and a sore throat. Pertinent negatives include no chest pain, chills, fever, myalgias, nausea or vomiting. Roderick Duncan is a 17 year old female who presents with left ear pain today and headache, cough and sore throat for the past 3 days. She has not had a fever. She has been around coworkers who have been sick. She has been taking mucinex and tylenol for symptoms. She rates ear pain 8/10. Review of Systems Constitutional: Negative for chills [...] Discussed expected course of illness Ella Rodriguez APRN.[facility] 04-07-2022 History of Present illness Narrative This note was created using [employer]. Subjective Roderick Duncan is a 16 year old female. HPI [...] ear normal. Nose: Congestion present. Mouth/Throat: Lips: [place]. Mouth: Mucous membranes are moist. Pharynx: Uvula [...] and rest -Declined PCR COVID testing. Wendy Pendleton PA-C documented in this encounter [facility] 04-07-2022 History of Present illness Narrative Radiology Service Progress Note PATIENT NAME: Roderick Duncan DATE OF SERVICE: April 07, 2022 TIME: [...] RT Faustino(R) April 07, 2022 4:51 PM documented in this encounter [facility] 09-05-2021 Plan of care note Education completed [facility] 09-05-2021 Miscellaneous Notes Education completed OPERATIVE REPORT NAME: Roderick Duncan DATE OF : 2005 AGE: 16 y.o. GENDER: female WEIGHT: Weight - Scale: 80.6 kg ADMIT DATE: 09/05/2021 TYPE: outpatient [facility]#: [id number] ATTENDING: Yuri Koenig MD DATE: 09/05/2021 Surgeon(s) and Role: * Yuri Koenig MD - Primary OR STAFF: Workgroup Leader: Cheli Gay RN Scrub Person: Fco Palacios Preoperative Diagnosis: Fibrosis left knee Postoperative Diagnosis: Fibrosis left knee Procedure: Manipulation left knee under anesthesia ANESTHESIA: General, Nerve Block/Regional INDICATIONS FOR PROCEDURE: Roderick Duncan is a 16 y.o. female who had [...] not need to wear a brace. Yuri Koenig MD [facility] 4:31 PM documented in this encounter [facility] 09-05-2021 Procedure note OPERATIVE REPORT NAME: Roderick Duncan DATE OF : 2005 AGE: 16 y.o. GENDER: female WEIGHT: Weight - Scale: 80.6 kg ADMIT DATE: 09/05/2021 TYPE: outpatient [facility]#: [id number] ATTENDING: Yuri Koenig MD DATE: 09/05/2021 Surgeon(s) and Role: * Yuri Koenig MD - Primary OR STAFF: Workgroup Leader: Cheli Gay RN Scrub Person: Fco Palacios Preoperative Diagnosis: Fibrosis left knee Postoperative Diagnosis: Fibrosis left knee Procedure: Manipulation left knee under anesthesia ANESTHESIA: General, Nerve Block/Regional INDICATIONS FOR PROCEDURE: Roderick Duncan is a 16 y.o. female who had [...] not need to wear a brace. Yuri Koenig MD [facility] 4:31 PM [facility] 09-05-2021 Attending History and physical note H&P reviewed, patient examined, no changes have occured since H&P completed. Source Note - Blanca Nunn APRN-CNP - 09/03/2021 10:00 AM EDT PRE-OP CONSULTATION DATE OF SERVICE: 09/03/2021 RN OFFICE PROVIDER: LG Shipley SURGICAL DIAGNOSIS: fibrosis of knee joint Proposed surgery date: 09/05/2021 (MAIN) Proposed surgical procedure: manipulation left knee under anesthesia Advice/opinion was requested by Yuri Koenig MD for pre-surgical consultation. CHIEF COMPLAINT: left knee pain HISTORY OF PRESENT ILLNESS: Roderick Duncan is a 16 y.o. female with a [...] 05/14/2021 Added automatically from request for surgery [id number] Acute lateral meniscal injury of the knee, left, initial encounter 05/14/2021 ADHD (attention deficit hyperactivity disorder) New ACL tear, left, initial encounter 05/14/2021 Past Surgical History: Procedure Laterality Date ANTERIOR CRUCIATE LIGAMENT REPAIR Left 05/21/2021 Arthroscopic anterior cruciate ligament reconstruction left knee with autologous quadriceps tendon graft; Left all inside medial meniscal repair; Left partial lateral meniscectomy performed by Yuri Koenig MD at OR ANTERIOR CRUCIATE LIGAMENT REPAIR 05/21/2021 performed by Yuri Koenig MD at OR Past hospitalizations: yes -not [...] Needs: wears blue light glasses Preferred Language: [place] Citizen School: College- studying PT Smoking/Alcohol/Drug Use or [...] APTT, INR No results found for: TSH, E3VEXFS, C1UXGNB, THYROIDAB HCG,Urine Date Value Ref Range Status 05/21/2021 Negative mIU/mL Final Comment: Non females and males-Negative females-Positive No results found for: HCGSERUM ASSESSMENT: Patient Active Problem List Diagnosis ADHD (attention deficit hyperactivity disorder), combined type Mental disorder IUD (intrauterine device) in place Fibrosis of knee joint BMI (body mass index), pediatric, 95-99% for age Roderick Dakota is a 16 y.o. female with fibrosis [...] to surgery. -Remove all piercings and nail mosotho/acrylics on the day of surgery -Pre-operative acetaminophen ordered- to be given upon arrival and after vital signs have been obtained. Parent educated on benefits of preop analgesia and agrees with administration prior to procedure -Patient requests no narcotics due to family history of addiction Care coordination: Mavis Ordaz DO(PCP) OTHER FINDINGS OR COMMENTS: Cc: MD Blanca Beckford APRN-CNP 09/03/2021 1:01 PM [facility] 09-05-2021 History and physical note H&P reviewed, patient examined, no changes have occured since H&P completed. Source Note - Blanca Nunn APRN-CNP - 09/03/2021 10:00 AM EDT PRE-OP CONSULTATION DATE OF SERVICE: 09/03/2021 RN OFFICE PROVIDER: LG Shipley SURGICAL DIAGNOSIS: fibrosis of knee joint Proposed surgery date: 09/05/2021 (MAIN) Proposed surgical procedure: manipulation left knee under anesthesia Advice/opinion was requested by Yuri Koenig MD for pre-surgical consultation. CHIEF COMPLAINT: left knee pain HISTORY OF PRESENT ILLNESS: Roderick Duncan is a 16 y.o. female with a [...] 05/14/2021 Added automatically from request for surgery [id number] Acute lateral meniscal injury of the knee, left, initial encounter 05/14/2021 ADHD (attention deficit hyperactivity disorder) New ACL tear, left, initial encounter 05/14/2021 Past Surgical History: Procedure Laterality Date ANTERIOR CRUCIATE LIGAMENT REPAIR Left 05/21/2021 Arthroscopic anterior cruciate ligament reconstruction left knee with autologous quadriceps tendon graft; Left all inside medial meniscal repair; Left partial lateral meniscectomy performed by Yuri Koenig MD at OR ANTERIOR CRUCIATE LIGAMENT REPAIR 05/21/2021 performed by Yuri Koenig MD at OR Past hospitalizations: yes -not [...] Needs: wears blue light glasses Preferred Language: [place] Citizen School: College- studying PT Smoking/Alcohol/Drug Use or [...] APTT, INR No results found for: TSH, L0TMVXK, J2GLTKQ, THYROIDAB HCG,Urine Date Value Ref Range Status 05/21/2021 Negative mIU/mL Final Comment: Non females and males-Negative females-Positive No results found for: HCGSERUM ASSESSMENT: Patient Active Problem List Diagnosis ADHD (attention deficit hyperactivity disorder), combined type Mental disorder IUD (intrauterine device) in place Fibrosis of knee joint BMI (body mass index), pediatric, 95-99% for age Roderick Duncan is a 16 y.o. female with fibrosis [...] to surgery. -Remove all piercings and nail mosotho/acrylics on the day of surgery -Pre-operative acetaminophen ordered- to be given upon arrival and after vital signs have been obtained. Parent educated on benefits of preop analgesia and agrees with administration prior to procedure -Patient requests no narcotics due to family history of addiction Care coordination: Mavis Ordaz DO(PCP) OTHER FINDINGS OR COMMENTS: Cc: MD Blanca Beckford APRN-CNP 09/03/2021 1:01 PM documented in this encounter [facility] 09-03-2021 Note Is this a pre-proced ure screening test?->Yes [facility] 05-21-2021 Hospital Discharge instructions Dina Benson RN - 05/21/2021 3:49 PM EDT If you are unable to reach your Doctor, you may call the hospital phone number [phone] or Contact your doctor for: -Temperature over [...] ambulation and activity. documented in this encounter [facility] 05-21-2021 Procedure note OPERATIVE REPORT NAME: Roderick Duncan DATE OF : 2005 AGE: 15 y.o. GENDER: female WEIGHT: Weight - Scale: 73 kg ADMIT DATE: 05/21/2021 TYPE: outpatient [facility]#: [id number] ATTENDING: Yuri Koenig MD DATE: 05/21/2021 Surgeon(s) and Role: * Yuri Koenig MD - Primary * Evin Ariza MD - Resident - Assisting OR STAFF: Workgroup Leader: Cari Watson RN; Peri De La Torre [...] General, Nerve Block/Regional INDICATIONS FOR PROCEDURE: Roderick Duncan is a 15 y.o. female who had [...] Implant Name Type Inv. Item Serial No. Technical Support Technician Lot No. LRB No. Used Action ARTH FIBERSTICK #2 [id number] Implant Misc ARTH FIBERSTICK #2 AR-[id number] AR-[id number] [employer] [id number] Left 1 Implanted FEMORAL ACL TIGHTROPE Implant Supply FEMORAL ACL TIGHTROPE [id number] [employer] [id number] Left 1 Implanted TIBIAL ACL TIGHTROPE W/BUTTON Implant Misc TIBIAL ACL TIGHTROPE W/BUTTON [id number] [employer] [id number] Left 1 Implanted FAST FIX FLEX CVD Implant Misc FAST FIX FLEX CVD [id number] [employer] ENDOSCOPY [id number] Left 1 Implanted FAST FIX 360 KNOT PUSH/SUT CUT Implant Supply FAST FIX 360 KNOT PUSH/SUT CUT [id number] [employer] ENDOSCOPY [id number] Left 1 Implant Supply Used FAST FIX FLEX CVD Implant Misc FAST FIX FLEX CVD [id number] [employer] ENDOSCOPY [id number] Left 2 Implanted 20MM TIGHTROPE ATTACH BUTTON Implant Supply 20MM TIGHTROPE ATTACH BUTTON [id number] [employer] [id number] Left 1 Implanted COMPLICATIONS: None. Roderick tolerated the procedure well. The patient was taken to PACU. The results of the operation were discussed with the family as able. Post-Operative Plan: She should be strict nonweightbearing for 4 weeks. She will follow the protocol for ACL reconstruction with meniscal repair. She can shower in 2 days. X-rays are not necessary upon follow-up. Yuri Koenig MD [facility] 2:50 PM [facility] 05-21-2021 Miscellaneous Notes OPERATIVE REPORT NAME: Roderick Duncan DATE OF : 2005 AGE: 15 y.o. GENDER: female WEIGHT: Weight - Scale: 73 kg ADMIT DATE: 05/21/2021 TYPE: outpatient CSN#: [id number] ATTENDING: Yuri Koenig MD DATE: 05/21/2021 Surgeon(s) and Role: * Yuri Koenig MD - Primary * Evin Ariza MD - Resident - Assisting OR STAFF: Workgroup Leader: Cari Watson RN; Peri De La Torre [...] General, Nerve Block/Regional INDICATIONS FOR PROCEDURE: Roderick Duncan is a 15 y.o. female who had [...] Implant Name Type Inv. Item Serial No. Technical Support Technician Lot No. LRB No. Used Action ARTH FIBERSTICK #2 [id number] Implant Misc ARTH FIBERSTICK #2 AR-[id number] AR-7209 [employer] [id number] Left 1 Implanted FEMORAL ACL TIGHTROPE Implant Supply FEMORAL ACL TIGHTROPE AR-[id number] [employer] [id number] Left 1 Implanted TIBIAL ACL TIGHTROPE W/BUTTON Implant Misc TIBIAL ACL TIGHTROPE W/BUTTON [id number] [employer] [id number] Left 1 Implanted FAST FIX FLEX CVD Implant Misc FAST FIX FLEX CVD [id number] [employer] ENDOSCOPY [id number] Left 1 Implanted FAST FIX 360 KNOT PUSH/SUT CUT Implant Supply FAST FIX 360 KNOT PUSH/SUT CUT [id number] [employer] ENDOSCOPY [id number] Left 1 Implant Supply Used FAST FIX FLEX CVD Implant Misc FAST FIX FLEX CVD [id number] [employer] ENDOSCOPY [id number] Left 2 Implanted 20MM TIGHTROPE ATTACH BUTTON Implant Supply 20MM TIGHTROPE ATTACH BUTTON AR-[id number] [employer] [id number] Left 1 Implanted COMPLICATIONS: None. Roderick tolerated the procedure well. The patient was taken to PACU. The results of the operation were discussed with the family as able. Post-Operative Plan: She should be strict nonweightbearing for 4 weeks. She will follow the protocol for ACL reconstruction with meniscal repair. She can shower in 2 days. X-rays are not necessary upon follow-up. Yuri Koenig MD [facility] 2:50 PM Problem: [...] Limited Evaluation and Education Patient Name: Roderick Duncan MR#: [id number] Patient : 2005 Age:15 y.o. Location: [facility] Pediatric Surgery Treatment Date: 05/21/2021 Length of session: 15 mins Start Time: 1200 End Time: 1215 Referring Physician: Bertha Koenig MD Note Type:outpatient surgery treatment note Subjective: [...] 05/21/2021 12:12 PM documented in this encounter [facility] 05-21-2021 Plan of care note Problem: Falls, [...] to next level of care Outcome: Completed [facility] 05-21-2021 Attending History and physical note H&P reviewed, patient examined, no changes have occured since H&P completed. Source Note - Camilla Guerrero APRN-CNP - 05/14/2021 10:30 AM EDT PRE-OP CONSULTATION DATE OF SERVICE: 05/14/2021 RN OFFICE PROVIDER: LG Ortiz SURGICAL DIAGNOSIS: ACL laxity left Proposed surgery date: 05/21/2021 Proposed surgical procedure: Arthroscopic anterior cruciate ligament reconstruction left knee with autologous quadriceps tendon graft Arthroscopic meniscal repair verses partial meniscectomy left knee MV Advice/opinion was requested by Yuri Koenig MD for pre-surgical consultation. CHIEF COMPLAINT: left knee injury HISTORY OF PRESENT ILLNESS: Roderick Duncan is a 15 y.o. 9 m.o. female [...] was seen on the sidelines by Dr Koenig and sent for an MRI- he saw [...] 3 sibs Special Needs: None Preferred Language: [place] Citizen Daycare: no School: [employer] Smoking/Alcohol/Drug Use or [...] APTT, INR No results found for: TSH, B1LRERF, I8CHIHA, THYROIDAB No results found for: HCGUR No results found for: HCGSERUM ASSESSMENT: Patient Active Problem List Diagnosis ADHD (attention deficit hyperactivity disorder), combined type BMI (body mass index), pediatric, 85% to less than 95% for age Mental disorder IUD (intrauterine device) in place Roderick Duncan is a 15 y.o. 9 m.o. female [...] monitoring Respiratory monitoring Neurovascular monitoring Care coordination: Mavis Ordaz DO OTHER FINDINGS OR COMMENTS: -COVID testing scheduled 72 hours prior to surgery -No other labs required prior to surgery Will need HCG day of surgery -Educated family that if patient develops viral illness, fever, requires unexpected breathing treatments or antibiotics or any other changes prior to surgery to notify the surgery center. -Remove all piercings and nail mosotho/acrylics on the day of surgery -Pre-operative acetaminophen ordered- Educated on benefits of pre-op analgesia and agree with administration. Please verify dose with anesthesia prior to administration. To be given upon arrival and after vital signs have been obtained Pt/ mom agree Child's bio parents had issues with narcotic abuse and she would like to avoid taking - Dr Koenig was looking at ordering a longer acting block She also reports that she gets nauseated very quickly and is worried about PONV Cc: MD Camilla Beckford APRN-CNP 05/14/2021 10:49 AM [facility] 05-21-2021 History and physical note H&P reviewed, patient examined, no changes have occured since H&P completed. Source Note - Camilla Guerrero APRN-CNP - 05/14/2021 10:30 AM EDT PRE-OP CONSULTATION DATE OF SERVICE: 05/14/2021 RN OFFICE PROVIDER: LG Ortiz SURGICAL DIAGNOSIS: ACL laxity left Proposed surgery date: 05/21/2021 Proposed surgical procedure: Arthroscopic anterior cruciate ligament reconstruction left knee with autologous quadriceps tendon graft Arthroscopic meniscal repair verses partial meniscectomy left knee MV Advice/opinion was requested by Yuri Koenig MD for pre-surgical consultation. CHIEF COMPLAINT: left knee injury HISTORY OF PRESENT ILLNESS: Roderick Duncan is a 15 y.o. 9 m.o. female [...] was seen on the sidelines by Dr Koenig and sent for an MRI- he saw [...] 3 sibs Special Needs: None Preferred Language: [place] Citizen Daycare: no School: [employer] Smoking/Alcohol/Drug Use or [...] APTT, INR No results found for: TSH, Q8BOEMF, N9IRIJC, THYROIDAB No results found for: HCGUR No results found for: HCGSERUM ASSESSMENT: Patient Active Problem List Diagnosis ADHD (attention deficit hyperactivity disorder), combined type BMI (body mass index), pediatric, 85% to less than 95% for age Mental disorder IUD (intrauterine device) in place Roderick Duncan is a 15 y.o. 9 m.o. female [...] monitoring Respiratory monitoring Neurovascular monitoring Care coordination: Mavis Ordaz DO OTHER FINDINGS OR COMMENTS: -COVID testing scheduled 72 hours prior to surgery -No other labs required prior to surgery Will need HCG day of surgery -Educated family that if patient develops viral illness, fever, requires unexpected breathing treatments or antibiotics or any other changes prior to surgery to notify the surgery center. -Remove all piercings and nail mosotho/acrylics on the day of surgery -Pre-operative acetaminophen ordered- Educated on benefits of pre-op analgesia and agree with administration. Please verify dose with anesthesia prior to administration. To be given upon arrival and after vital signs have been obtained Pt/ mom agree Child's bio parents had issues with narcotic abuse and she would like to avoid taking - Dr Koenig was looking at ordering a longer acting block She also reports that she gets nauseated very quickly and is worried about PONV Cc: MD Camilla Beckford APRN-CNP 05/14/2021 10:49 AM documented in this encounter [facility] 05-21-2021 Consult note Formatting of th is note might be different from the original. Physical Therapy [employer] Limited Evaluation and Education Patient Name: Roderick Duncan MR#: [id number] Patient : 2005 Age:15 y.o. Location: [facility] Pediatric Surgery Treatment Date: 05/21/2021 Length of session: 15 mins Start Time: 1200 End Time: 1215 Referring Physician: Bertha Koenig MD Note Type:outpatient surgery treatment note Subjective: [...] from physical therapy: all goals met Ivania Zafar, PT 05/21/2021 12:12 PM [facility] Evaluation note Diagnosis ACL laxity, left- Primary Pre-operative examination Preoperative examination, unspecified New ACL tear, left, initial encounter Acute lateral meniscal injury of the knee, left, initial encounter documented in this encounter [facility] note* Diagnosis 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 Fibrosis of knee joint, unspecified laterality Fibrosis of knee joint, unspecified laterality documented in this encounter [facility] note* Diagnosis Mental disorder Unspecified nonpsychotic mental [...] left knee joint documented in this encounter [facility] note* Diagnosis Sore throat- Primary Acute pharyngitis Hemoptysis Hemoptysis, unspecified Viral URI with cough Acute upper respiratory infections of unspecified site documented in this encounter [facility] noteNo assessment information availableWMarymount Hospital Work Phone: Evaluation note* Diagnosis Left hand pain- Primary Pain in limb [facility] [facility] note* Diagnosis Acute URI- Primary Acute upper respiratory infections of unspecified site documented in this encounter [facility] note* Diagnosis Left hand pain Pain in limb documented in this encounter [facility] note* Diagnosis Hemoptysis Hemoptysis, unspecified documented in this encounter [facility] note* Diagnosis Sprain of right ankle, initial encounter- Primary documented in this encounter [facility] note* Diagnosis Acute right ankle pain- Primary Sprain of right ankle, initial encounter Acute right ankle pain documented in this encounter [facility] note* Diagnosis Acute right ankle pain documented in this encounter [facility] note* Diagnosis Left knee pain, unspecified chronicity documented in this encounter [facility] note* Diagnosis Left knee pain- Primary Pain in joint, lower leg Left knee pain, unspecified chronicity- Primary Left knee pain, unspecified chronicity documented in this encounter [facility] note* Diagnosis Left knee pain- Primary Pain in joint, lower leg Pre-operative examination Preoperative examination, unspecified Left knee pain, unspecified chronicity Fibrosis of left knee joint Chronic pain of left knee Pain in joint, lower leg documented in this encounter [facility] Discharge instructions* Attachments The following attachments cannot be sent through Care Everywhere. * Ankle Sprain Discharge Instructions ([place]) [facility] Diagnostic Procedure Only (Urgent) - Closed Specialty Diagnoses / Procedures Referred By Contac t Referred To Contact XR IMAGING Diagnoses Left hand pain Procedures XR WRIST INJURY 4V PA/LAT/OBL/SCAPH LEFT RADEX WRIST COMPLETE MINIMUM 3 VIEWS [facility] [address] [place] [address] [place] [address] Referral ID Status Reason Start Date Expiration Date V isits Requested Visits Authorized [id number] Closed Auto-Generate d Referral 05/19/2023 06/17/2024 1 1 * Diagnostic Procedure Only (Urgent) - Closed Specialty Diagnoses / Procedures Referred By Contac t Referred To Contact XR IMAGING Diagnoses Left hand pain Procedures XR HAND GENERAL 3V PA/LAT/OBL LEFT RADEX HAND MINIMUM 3 VIEWS Express [facility] [address] [place] [address] [place] [address] Referral ID Status Reason Start Date Expiration Date V isits Requested Visits Authorized [id number] Closed Auto-Generate d Referral 05/19/2023 06/17/2024 1 1 [facility] for visit Narrative* Auth/Cert Specialty Diagnoses / Procedures Referred By Jasiel patel Referred To Contact Diagnoses ACL laxity, left ACL laxity, left [M23.8X2] Procedures AZ KNEE SCOPE,AID ANT CRUCIATE REPAIR AZ KNEE SCOPE,MED OR LAT MENIS REPAIR [place] ARTHRS KNE SURG W/MENISCECTOMY MED/LAT W/SHVG KNEE ACL RECONSTRUCTION QUAD TENDON ARTHROSCOPY KNEE MENISCAL REPAIR Or [address] [place] [address] Referral ID Status Reason Start Date Expiration Date Visits Re quested Visits Authorized [id number] 1 1 [facility] for visit Narrative* MRI/CAT Scan (Routine) - Closed Specialty Diagnoses / Procedures Referred By Jasiel patel Referred To Contact Radiology Diagnoses Left knee pain, unspecified chronicity Procedures MRI KNEE JOINT without contrast Left Abdelrahman Gudino, MAC [address] [facility] [place] [address] [place] [address] Phone: tel: fax: Referral ID Status Reason Start Date Expiration Date Visits Re quested Visits Authorized [id number] Closed 10/27/2023 11/26/2023 1 1 [facility] for visit Narrative* Auth/Cert (Routine) Specialty Diagnoses / Procedures Referred By Jasiel patel Referred To Contact Diagnoses Left knee pain, unspecified chronicity Left knee pain, unspecified chronicity [M25.562] Procedures AZ ARTHROSCOPY KNEE SYNOVECTOMY LIMITED SPX Arthroscopy left knee with debridement scar and possible partial meniscectomy [facility] [place] [address] Phone: tel: Referral ID Status Reason Start Date Expiration Date Visits Re quested Visits Authorized [id number] 1 1 [facility] [place] Summary Purpose Family History No Family History Records FoundNo Family History Records FoundNo Family History Records FoundNo Family History Records FoundNo Family History Records Found Advance Directives No Advanced Directives Records FoundDocuments on File Type Date Recorded Patient Commercial Intelligence Manager Expl anation Power of Revenue Specialist Documents on File Type Date Recorded Patient Commercial Intelligence Manager Expl anation Advance Directives and Livin g Will 09/05/2021 2:35 PM Advance Directive Response Recorded Date/ Time Living Will No February 21 4:57pm Power of Revenue Specialist No February 21, 2023 4:57pm Documents on File Type Date Recorded Patient Commercial Intelligence Manager Expl anation Advance Directives and Livin g Will 09/05/2021 2:35 PM Chief Complaint and Reason for Visit Chief Complaint BACK Reason for Referral Specialty Diagnoses / Procedures Referred By Sajanac t Referred To Contact XR IMAGING Diagnoses Left hand pain Procedures XR WRIST INJURY 4V PA/LAT/OBL/SCAPH LEFT RADEX WRIST COMPLETE MINIMUM 3 VIEWS Ramila Bernard PA [address] [place] [address] [place] [address] Referral ID Status Reason Start Date Expiration Date V isits Requested Visits Authorized [id number] Closed Auto-Generate d Referral 05/19/2023 05/19/2023 1 1 Specialty Diagnoses / Procedures Referred By Jasiel t Referred To Contact XR IMAGING Diagnoses Left hand pain Procedures XR HAND GENERAL 3V PA/LAT/OBL LEFT RADEX HAND MINIMUM 3 VIEWS [facility] [address] [place] [address] [place] [address] Referral ID Status Reason Start Date Expiration Date V isits Requested Visits Authorized [id number] Closed Auto-Generate d Referral 05/19/2023 06/17/2024 1 1 Additional Source Comments INFORMATION SOURCE (unrecogn ized section and content) DATE CREATED AUTHOR 05/15/2021 [facility] ([place]) DATE CREATED AUTHOR AUTHOR'S ORGANIZ ATION 07/18/2023 [facility] DATE CREATED AUTHOR AUTHOR'S ORGANIZ ATION 01/05/2024 [facility] DATE CREATED AUTHOR AUTHOR'S ORGANIZ ATION 07/07/2024 [facility] DATE CREATED AUTHOR AUTHOR'S ORGANIZ ATION 11/26/2024 [facility] Scheduled Active and Recently Administ ered Medications (unrecognized section and content) Medication Order 05/19/2021 05/20/2021 05/21/2021 acetaminophen (TYLENOL) tablet 1,000 mg (COMPLETED) 1,000 mg (13.7 mg/kg/DOSE), Oral, ONCE, 1 dose, On Wed05/21/21 at 1200, Pre-op 1219 (Given - Provid er: Marla Contreras RN - Comment: preop) Continuous Medication Order 05/19/2021 05/20/2021 05/21/2021 Lactated Ringers IV (CANCELED) CONTINUOUS, Intravenous, at 60 mL/hr, Starting on Wed05/21/21 at 1330, For 90 days, PACU 1458 (New Bag - Prov ider: Dina Benson RN)1611 (Stopped - Provider: Dina Benson, RN)1613 (Stopped - Provider: Dnia Benson RN) PRN Medication Order 05/19/2021 05/20/2021 05/21/2021 Oxygen (CANCELED) See Flowsheet Row, PRN, Starting on Wed05/21/21 at 1258, Until Wed05/21/21 at 1606, Keep sats greater or equal to 95% 1501 (Gas Start - Pr ovider: Dina Benson RN)1505 (Gas Rate/Dose Verify - Provider: Dina Benson RN)1520 (Gas Stop - Provider: iDna Benson RN) XEROFORM PETROLAT GAUZE 1X8 (XEROFORM) 1 x 8 dressing (CANCELED) PRN, Starting on Wed05/21/21 at 1445, Until Wed05/21/21 at 1456, Intra-op 1445 (Given - Provid er: Yuri Koenig MD) Scheduled Medication Order 09/03/2021 09/04/2021 09/05/2021 [...] 1626 (Restarted from Bag - Provider: Anthony Castellanos RN)1702 (Dose/Rate Verification - Provider: Niharika Stacy, MORELIA)1727 (Stopped - Provider: Niharika Stacy RN) PRN Medication Order 09/03/2021 09/04/2021 09/05/2021 Oxygen (CANCELED) See Flowsheet Row, PRN, Starting on Wed09/05/21 at 1623, Until Wed09/05/21 at 1737, Keep sats greater or equal to 95% 1618 (Gas Start - Pr ovider: Anthony Castellanos, RN)1645 (Gas Stop - Provider: Anthony Castellanos, RN) Scheduled Medication Order 12/24/2023 12/25/2023 12/26/2023 ibuprofen tablet 800 mg (COMPLETED) 800 mg, Oral, Once, On 12/26/23 at 0740, For 1 dose 0748 (Given - Provid er: Nohmei Almanza RN) Scheduled Medication Order 10/31/2024 11/01/2024 11/02/2024 acetaminophen (TYLENOL) tablet 1,000 mg (COMPLETED) 1,000 mg (11.4 mg/kg/DOSE), Oral, ONCE, 1 dose, On Kelli 11/02/24 at 1000, Pre-op 0935 (Given - Provid er: Lilly Valente RN) Continuous Medication Order 10/31/2024 11/01/2024 11/02/2024 Lactated Ringers IV (CANCELED) CONTINUOUS, Intravenous, at 125 mL/hr, Starting on Kelli 11/02/24 at 1200, For 90 days, PACU 1140 (New Bag - Prov ider: Mavis Tom RN) Care Teams (unrecognized sec tion and content) Informatica Developer Relationship Specialty Start Date End Date Mavis Ordaz [address], [address] [place] [phone] PCP - General Pediatrics 11/29/19 Informatica Developer Relationship Specialty Start Date End Date Mavis Ordaz [address] [place] [address], [address] [place] [address] PCP - General Pediatrics 11/29/19 Informatica Developer Relationship Specialty Start Date End Date Mavis Ordaz [address], [address] [place] [phone] PCP - General Pediatrics 11/29/19 Team Status: Active Member Role Status Dates Dr. Kathleen Mora MD Family Provider Active No Primary Care Physician Primary Care Provider Active Team Status: Inactive Member Role Status Dates Dr. Kaleb Garcia DO Emergency Provider Active No Primary Care Physician Primary Care Provider Active Informatica Developer Relationship Specialty Start Date End Date [facility] [place] [address] [place] [address] PCP - General Pediatrics 10/12/22 Informatica Developer Relationship Specialty Start Date End Date [facility] [place] [address] [place] [address] PCP - General Pediatrics 10/12/22 Informatica Developer Relationship Specialty Start Date End Date [facility] [place] [address] [place] [address] PCP - General Pediatrics 10/12/22 Informatica Developer Relationship Specialty Start Date End Date Mavis Ordaz DO [address] [address], [address] [place] [phone] PCP - General 12/26/23 Informatica Developer Relationship Specialty Start Date End Date Mavis Ordaz DO [address] [facility], [address] [place] [phone] PCP - General 12/26/23 Informatica Developer Relationship Specialty Start Date End Date Mavis Ordaz DO [address] [address], [address] [place] [phone] PCP - General 12/26/23 Informatica Developer Relationship Specialty Start Date End Date Mavis Ordaz DO [address], [address] [place] [address] PCP - General 12/26/23 Informatica Developer Relationship Specialty Start Date End Date Mavis Ordaz DO [address] [facility] [facility], [address] [place] [phone] PCP - General Pediatrics 11/29/19 Informatica Developer Relationship Specialty Start Date End Date aMvis Ordaz DO [address] [facility] [facility], [address] [place] [address] PCP - General Pediatrics 11/29/19 Informatica Developer Relationship Specialty Start Date End Date Mavis Ordaz DO [address] [facility], [address] [place] [address] PCP - General Pediatrics 11/29/19 Informatica Developer Relationship Specialty Start Date End Date Mavis Ordaz DO [address] [facility], [address] [place] [address] PCP - General Pediatrics 11/29/19 Reason for Visit (unrecogniz ed section and content) Specialty Diagnoses / Procedures Referred By Jasiel t Referred To Contact Diagnoses Fibrosis of knee joint, unspecified laterality Fibrosis of knee joint, unspecified laterality [M24.669] Procedures AZ MANIPULATN KNEE JT+ANESTHESIA KNEE MANIPULATION [place] [address] Referral ID Status Reason Start Date Expiration Date Visits Re quested Visits Authorized [id number] 1 1 Reason Comments Nasal Congestion drainage, cough, sor e throat and headache x 1 day Reason Comments Musculoskeletal Problem Left hand pain x 3 days Reason Comments Cough SOB, sore throat and VERNON ear pain x4 days Specialty Diagnoses / Procedures Referred By Jasiel t Referred To Contact XR IMAGING Diagnoses Left hand pain Procedures XR WRIST INJURY 4V PA/LAT/OBL/SCAPH LEFT RADEX WRIST COMPLETE MINIMUM 3 VIEWS Ramila Bernard PA [address] [facility] [place] [address] [place] [address] Referral ID Status Reason Start Date Expiration Date V isits Requested Visits Authorized [id number] Closed Auto-Generate d Referral 05/19/2023 05/19/2023 1 1 Reason Comments Ankle Pain Reason Comments New Patient Ankle Pain right Specialty Diagnoses / Procedures Referred By Contac t Referred To Contact Sports Medicine Diagnoses Sprain of right ankle, initial encounter Procedures [place] OFFICE/OUTPATIENT NEW HIGH MDM 60 MINUTES Sabas Tran MD [address] [place] [address] Phone: tel: fax: [facility] [address] [place] [address] Phone: tel: fax: Referral ID Status Reason Start Date Expiration Date Visits Requested Visits Authorized [id number] Pending Review Specialty Services Required 4 12/25/2024 1 1 Source Comments (unrecognize d section and content) In the event this informatio n is protected by the Federal Confidentiality of Alcohol and Drug Abuse Patient Records regulations: The Federal rules restrict any use of the information to criminally investigate or prosecute any alcohol or drug abuse patient.[facility] System[facility] the event this information is protected by the Federal Confidentiality of Alcohol and Drug Abuse Patient Records regulations: The Federal rules restrict any use of the information to criminally investigate or prosecute any alcohol or drug abuse patient.[facility] SystemIn the event this information is protected by the Federal Confidentiality of Alcohol and Drug Abuse Patient Records regulations: The Federal rules restrict any use of the information to criminally investigate or prosecute any alcohol or drug abuse patient.[facility] SystemIn the event this information is protected by the Federal Confidentiality of Alcohol and Drug Abuse Patient Records regulations: The Federal rules restrict any use of the information to criminally investigate or prosecute any alcohol or drug abuse patient.[facility] SystemIn the event this information is protected by the Federal Confidentiality of Alcohol and Drug Abuse Patient Records regulations: The Federal rules restrict any use of the information to criminally investigate or prosecute any alcohol or drug abuse patient.[facility] Goals (unrecognized section and content) Goals may be documented in a n alternate section FOR RECORDS PERTAINING TO PATIENTS WHO ARE [...] BE BASED ON THE PRIMARY CLINICAL RECORDS. Mobile [employer] [facility]. provides no warranty or guarantee of the accuracy or completeness of information in this document.
[2025-01-28 18:37] VITALS: BP 132/80; PULSE 92; RESP 18; TEMP 37.4; O2SAT 97
== END 2025-01-28 19:30 | disposition home or self-care (01) ==
PROVIDERS: Emergency Provider Emergency Medicine; Visit Provider Emergency Medicine
DX: S83.92XA Sprain of unspecified site of left knee, initial encounter (principal); X58.XXXA Exposure to other specified factors, initial encounter; Y93.A1 Activity, exercise machines primarily for cardiorespiratory conditioning
CPT/HCPCS: 73564; 99283